=== PATIENT | female | born 2000 | race Caucasian/White ===

== ENCOUNTER 2023-06-23 13:30 | Inpatient (IN) ==
--- OUTSIDE RECORDS SUMMARY | 2023-06-23 13:37 | External Medical Summary | Summary of Care ---
Author Name Unknown Organization [facility] Address [address] [place] [address] Phone [phone] Care Team Providers Care Pastry Cook Name Role Phone Melba Cr MD Primary Care Provider Reason for Visit * Reason Onset Date Comments Anemia Follow-Up 06/19/2023 Encounter Details Date Type Department Care Team (Late st Contact Info) Description 06/19/2023 10:00 AM [facility] Pharm[facility] Pharmacy, [place] [address], [place] [id number] Clinic, [place] [address] [place] [address] Iron deficiency anemia, unspecified iron deficiency anemia type* Allergies Active Allergy Reactions Criticality Noted Date Comments Bee Venom High 01/20/2014 WASP and HONETS documented as of this encounter (statuses as of 06/19/2023) Medications Medication Sig Dispensed Refills Start Date End Date Status Albuterol Sulfate HFA 108 (90 Base) MCG/ACT Inhalation Aerosol SolutionIndications:a s needed Inhale 2 Puffs by mouth. 0 12/25/2019 Active EPINEPHrine 0.3 MG/0.3ML Injection Solution Auto-injector (Autoinjector) Inject 0.3 mg into a large muscle. 0 12/25/2019 Active 27-0.8 MG Oral Tablet Take 1 Tablet by mouth daily at noon. 0 Active Vitron-C 65-125 MG Oral Tablet (Iron-Vitamin C 65-125 mg per tab)Indications:Antep artum anemia complicating Take 1 Tablet by mouth in the morning and 1 Tablet before bedtime. 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 Bipolar disease during 12/06/2022 Maternal asthma complicating , normal first 11/08/2022 Mild intermittent asthma without complication Bipolar affective disorder, currently depressed, moderate 10/28/2021 Estimated Date of Delivery Comme nts Yes 06/30/2023 Based on Ultraso und documented as of this encounter (statuses as of 06/19/2023) Immunizations Name Administration Dates Next Due COVID-19 mRNA, LNP-s, No Pre serve, 2-Dose Series (Moderna) 02/03/2021,01/06/2021 DTaP Dipth/Tet/Acell Pertussis (Infanrix), Peds 02/22/2006,08/06/2002,05/15/2001,03/19,01/08/2001 HPV Vaccine, 9-Valent 05/11/2022,12/09/2021 Haemophilius B (HIB), unspecified 11/18/2001,,01/08/2001 Hepatitis A Vaccine 03/18/2009,12/11/2007 Hepatitis B Vaccine 11/18/2001,03/19/2001,2000 Hepatitis B, 20+ yrs 02/15/2023,01/11/2023 IPV - Polio Virus Vaccine (Inact) 2013,08/06/2002,05/15/2001,03/19,01/08/2001 MMR - Measles/Mumps/Rubella Vaccine 02/22/2006,0 08/06/2002 Meningococcal Polysaccharide Vaccine (Menommune) 10/16/2012 PPD 01/11/2023,01/04/2023 Pneumococcal Conjugate Vacci ne, 7 Valent 05/15/2001,03/19/2001,01/08/2001 SEASONAL INFLUENZA, PF, 6 M & Above, IM , (FLULAVAL or FLUZONE) 04/25/2023,06/14/2022,05/11/2022,06/16 Seasonal Influenza, Split, I IV3, With Preserve, Inj 04/21/2013 TDAP (age 10 and older)(Boostrix) 02/21/2023, Varicella Vaccine (Chicken Pox) 12/11/2007,08/06 documented as of this encounter Social History Tobacco Use Types Packs/Day Years Used Date Smoking Tobacco: Never Smokeless Tobacco: Never Alcohol Use Standard Drinks/Week Comments Never 0 (1 standard drink = 0.6 oz pur e alcohol) AUDIT-C Answer Date Recorded Q1: How often do you have a drink containing alc ohol? Never 09/30/2020 Q2: How many drinks containi ng alcohol do you have on a typical day when you are drinking? Not asked 09/30/2020 Q3: How often do you have six or more drinks on one occasion? Never 09/30/2020 Hunger Vital Sign Answer Date Recorded Within the past 12 months, y ou worried that your food would run out before you got the money to buy more. Never true 02/17/20 23 Within the past 12 months, t he food you bought just didn't last and you didn't have money to get more. Never true 02/16/2023 Wheeler Depression Scale Answer Date Recorded [place] Depression Scale Total 11 03/28/2023 The thought of harming myself has occurred to me . Never 03/28/2023 Estimated Date of Delivery Comme nts Yes 06/30/2023 Based on Ultraso und Sex and Gender Information Value Date Recorded Sex Assigned at Female 10/27/2022 7:27 PM EDT Gender Identity Female 10/27/2022 7:27 PM EDT Sexual Orientation Bisexual 10/27/2022 7: 27 PM EDT Job Start Date Occupation Industry Not on file Not on file Not on file documented as of this encounter Progress Notes * Taylor Rosario RP - 06/19/2023 7:58 AM EST Patient received first dose of Venofer 300 mg x 3 repletion series on 05/28 and appeared to have tolerated it without issue. Next scheduled: 06/04 (No Show) Scheduled to be completed: 06/11 (No Show) GA: 38w3d Estimated Date of Delivery: 06/30/23 Called patient to advise of Infusion Center at [facility] phone number and to call to reschedule final 2 doses. [phone]. No answer. Left message. Follow-up after completion of series to schedule repeat labs if appropriate prior to delivery. Anemia Clinic will continue to follow. Thank you for allowing us to participate in the care of thispatient. Thanks, Taylor Rosario [facility] Clinical Pharmacist documented in this encounter Miscellaneous Notes * Addendum Note - Taylor Rosario RPh - 06/19/2023 8:26 AM ESTAddended by: TAYLOR ROSARIO on: 06/19/2023 08:26 AM Modules accepted: Orders documented in this encounter Plan of Treatment Upcoming Encounters Date Type Department Care Team (Late st Contact Info) Description 06/20/2023 2:00 PM EST Office Visit Gynecology/Obstetrics [facility] [address] [place] [address] Phyllis Huggins CRNP [address] [address] 06/26/2023 10:00 AM EST Pharmacy Pharmacy, [place] [address] [place] [address] Clinic, Anemia [address] [place] [address] 06/27/2023 1:30 PM EST Office Visit Gynecology/Obstetrics [facility] [address] [address] Sally Alvares CRNP [address] [place] [address] Health Maintenance Due Date Last Done Comments Pneumococcal Vaccine: Pediatrics (0 to 5 Years) and At-Risk Patients (6 to 64 Years) (1 - PCV) 2006 Depression Screening 2012 *SPIROMETRY ONCE FOR ASTHMA-ADULT 06/22/2022 GARDASIL-HPV IMMUNIZATION SERIES (3 - 3-dose series) 08/03/2022 05/11/2022, 12/09/2021 COVID-19 Vaccine (3 - 2022- season) 2023 02/03/2021, 01/06/2021 Gonorrhea / Chlamydia Screen 11/09/2023 11/08/2022, 10/28/2021 Pap Smear 11/08/2025 11/08/2022 DTaP,Tdap,and Td Vaccines (8 - Td or Tdap) 02/21/2033 02/21/2023, 10/16/2012, 02/22/2006, Additional history exists MENINGOCOCCAL (MENACTRA/MENVEO) Aged Out 10/16/2012 No longer eligible based on patient's age to complete this topic Hepatitis B Completed 02/15/2023, 12/28, 11/18/2001, Additional history exists Influenza Vaccine (FLU shot) Completed , 06/14/2022, 05/11/2022, Additional history exists documented as of this encounter Medical Devices Not on filedocumented as of this encounter Visit Diagnoses Diagnosis Iron deficiency anemia, unspecified iron deficiency anemia type- Primary documented in this encounter Care Teams Pastry Cook Relationship Specialty Start Date End Date Melba Cr MD [address] [address] PCP - General Internal Medicine 12/09/21 documented as of this encounter
--- OUTSIDE RECORDS SUMMARY | 2023-06-23 13:37 | External Medical Summary | Summary of Care ---
Author Name Unknown Organization [facility] Address [address] [facility] [place] [address] Phone [phone] Care Team Providers Care Travel Journalist Name Role Phone Melba Cr MD Primary Care Provider Reason for Visit * Reason Comments Return Visit Encounter Details Date Type Department Care Team (Late st Contact Info) Description 06/20/2023 2:00 PM EST Office Visit Gynecology/Obstetric s [facility] [address] [place] [address] Phyllis Huggins CRNP [address] [place] [address] Encounter for supervision of normal first in third trimester*; Bipolar disease during , antepartum (HCC); Maternal asthma complicating ; History of tetanus, diphtheria, and acellular pertussis booster vaccination (Tdap); Antepartum anemia complicating Allergies Active Allergy Reactions Criticality Noted Date Comments Bee Venom High 01/20/2014 WASP and HONETS documented as of this encounter (statuses as of 06/20/2023) Medications Medication Sig Dispensed Refills Start Date [...] as of this encounter (statuses as of 06/20/2023) Active Problems Problem Noted Date Diagnosed Date Iron deficiency anemia 05/23/2023 Antepartum anemia complicating 023 History of tetanus, diphther ia, and acellular pertussis booster vaccination (Tdap) 03/08/2023 Overview: 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 Never true 02/16/2023 [place] Depression Scale Answer Date Recorded [place] Depression Scale Total 11 03/28/2023 The thought [...] on file documented as of this encounter Last Filed Vital Signs Vital Sign Reading Time Taken Comments Blood Pressure 120/78 06/20/2023 2:04 PM EST Pulse - - Temperature - - Respiratory Rate - - Oxygen Saturation - - Inhaled Oxygen Concentration - - Weight 94.6 kg (208 lb 9.6 oz) 06/20/2023 2:04 P M EST Height 157.5 cm (5' 2") 06/20/2023 2:04 PM EST Body Mass Index 38.15 06/20/2023 2:04 PM EST documented in this encounter Progress Notes * Phyllis Huggins CRNP - 06/20/2023 2:18 PM EST 38w4d No concerns. Feeling uncomfortable, but ok overall. Baby is active. No contractions, no bleeding or LOF. Discussed contraception, undecided at this point. Agreeable to IOL. KARLENE Navarro * Tiffany Templeton LPN - 06/20/2023 2:07 PM EST 38w4d Pt denies any concerns documented in this encounter Plan of Treatment Upcoming Encounters Date Type Department Care Team (Late st Contact Info) Description 06/26/2023 10:00 AM EST Pharmacy Pharmacy, [place] [address] [place] [address] Clinic, [place] [address] [place] [address] 06/27/2023 1:30 PM EST Office Visit Gynecology/Obstetrics [facility] [address] [place] [address] Sally Alvares CRNP [address] [address] Health Maintenance Due Date Last Done Comments Pneumococcal Vaccine: Pediatrics (0 to 5 Years) and At-Risk Patients (6 to 64 Years) (1 - PCV) 2006 Depression Screening 2012 *SPIROMETRY ONCE FOR ASTHMA-ADULT 06/22/2022 GARDASIL-HPV IMMUNIZATION SERIES (3 - 3-dose series) 08/03/2022 05/11/2022, 12/09/2021 COVID-19 Vaccine (3 - 2022-24 season) 2023 02/03/2021, 01/06/2021 Gonorrhea / Chlamydia [...] as of this encounter Visit Diagnoses Diagnosis Encounter for supervision of normal first in third trimester- Primary Supervision of normal first Bipolar disease during , antepartum (HCC) Maternal asthma complicating Other current maternal conditions classifiable elsewhere, complicating , childbirth, or the puerperium, unspecified as to episode of care History of tetanus, diphtheria, and acellular pertussis booster vaccination (Tdap) Antepartum anemia complicating Anemia, antepartum documented in this encounter Care Teams Travel Journalist Relationship Specialty Start Date End Date Melba Cr MD [address] [address] PCP - General Internal Medicine 12/09/21 documented as of this encounter
--- OUTSIDE RECORDS SUMMARY | 2023-06-23 13:37 | External Medical Summary | Summary of Care ---
Author Name Unknown Organization [facility] Address [address] [place] [address] Phone [phone] Care Team Providers Care Professor Of Communication Name Role Phone Melba Cr MD Primary Care Provider Reason for Visit * Reason Onset Date Comments Anemia Follow-Up 06/19/2023 Encounter Details Date Type Department Care Team (Late st Contact Info) Description 06/19/2023 10:00 AM [facility], [place] [address] [place], [place] [id number] Clinic, Anemia [address] [place] [address] Iron deficiency anemia, unspecified iron deficiency anemia [...] money to get more. Never true 02/16/2023 [place] Depression Scale Answer Date Recorded [place] Depression Scale Total 11 03/28/2023 The thought [...] patient to advise of Infusion Center at [facility] phone number and to call to reschedule final 2 doses. [phone]. No answer. Left message. Follow-up after completion of series to schedule repeat labs if appropriate prior to delivery. Anemia Clinic will continue to follow. Thank you for allowing us to participate in the care of thispatient. Thanks, Taylor Rosario [facility] Clinical Pharmacist documented in this encounter Miscellaneous Notes * Addendum Note - Taylor Rosario RPh - 06/19/2023 8:26 AM ESTAddended by: TAYLOR ROSARIO on: 06/19/2023 08:26 AM Modules accepted: Orders documented in this encounter Plan of Treatment Upcoming Encounters Date Type Department Care Team (Late st Contact Info) Description 06/20/2023 2:00 PM EST Office Visit Gynecology/Obstetrics [facility] [address] [place] [address] Phyllis Huggins CRNP [address] [address] 06/26/2023 10:00 AM EST Pharmacy Pharmacy, [place] [address] [place] [address] Clinic, [place] [address] [place] [address] 06/27/2023 1:30 PM EST Office Visit Gynecology/Obstetrics [facility] [address] [address] Sally Alvares CRNP [address] [place] [address] Health Maintenance Due Date Last Done Comments [...] Primary documented in this encounter Care Teams Professor Of Communication Relationship Specialty Start Date End Date Melba Cr MD [address] [address] PCP - General Internal Medicine 12/09/21 documented as of this encounter
--- OUTSIDE RECORDS SUMMARY | 2023-06-23 13:37 | External Medical Summary | Summary of Care ---
Author Name Unknown Organization [facility] Address [address] [facility] [place] [address] Phone [phone] Care Team Providers Care Ammonia Still Operator Name Role Phone Melba Cr MD Primary Care Provider Reason for Visit * Reason Comments Return Visit Encounter Details Date Type Department Care Team (Late st Contact Info) Description 06/20/2023 2:00 PM EST Office Visit Gynecology/Obstetric s [facility] [address] [place] [address] Phyllis Huggins CRNP [address] [place] [address] Encounter for supervision of normal first in [...] money to get more. Never true 02/16/2023 [place] Depression Scale Answer Date Recorded [place] Depression Scale Total 11 03/28/2023 The thought [...] Description 06/26/2023 10:00 AM EST Pharmacy Pharmacy, [place] [address] [place] [address] Clinic, [place] [address] [place] [address] 06/27/2023 1:30 PM EST Office Visit Gynecology/Obstetrics [facility] [address] [place] [address] Sally Alvares CRNP [address] [address] Health Maintenance Due Date Last Done Comments [...] antepartum documented in this encounter Care Teams Ammonia Still Operator Relationship Specialty Start Date End Date Melba Cr MD [address] [address] PCP - General Internal Medicine 12/09/21 documented as of this encounter
--- OUTSIDE RECORDS SUMMARY | 2023-06-23 13:37 | External Medical Summary | Summary of Care ---
Author Name Unknown Organization [facility] Address [address] [facility] [address] Phone [phone] Care Team Providers Care Facility Manager Name Role Phone Melba Cr MD Primary Care Provider Encounter Details Date Type Department Care Team (Late st Contact Info) Description 06/20/2023 [facility] [address] [place] [address] Phyllis Huggins CRNP [address] [place] [address] Allergies Active Allergy Reactions Criticality Noted Date [...] money to get more. Never true 02/16/2023 [place] Depression Scale Answer Date Recorded [place] Depression Scale Total 11 03/28/2023 The thought [...] on file documented as of this encounter Miscellaneous Notes * Telephone Encounter - Tiffany Templeton LPN - 06/20/2023 3:32 PM EST IOL scheduled at [facility] on 07/11, myg sent. documented in this encounter Plan of Treatment Upcoming Encounters Date Type Department Care Team (Late st Contact Info) Description 06/26/2023 10:00 AM EST Pharmacy Pharmacy, [place] [address] [place] [address] Clinic, [facility] [address] [place] [address] 06/27/2023 1:30 PM EST [facility] [address] [place] [address] Back[place], KARLENE Jain [address] [place] [address] Health Maintenance Due Date Last Done Comments [...] Not on filedocumented as of this encounter Care Teams Facility Manager Relationship Specialty Start Date End Date Melba Cr MD [address] [place] [address] PCP - General Internal Medicine 12/09/21 documented as of this encounter
--- OUTSIDE RECORDS SUMMARY | 2023-06-23 13:37 | External Medical Summary | Summary of Care ---
Author Name Unknown Organization [facility] Address [address] [facility] [address] Phone [phone] Care Team Providers Care Butt Presser Name Role Phone Melba Cr MD Primary Care Provider Reason for Visit * Reason Comments Return Visit Encounter Details Date Type Department Care Team (Late st Contact Info) Description 06/20/2023 2:00 PM EST Office Visit Gynecology/Obstetric s [facility] [address] [place] [address] Phyllis Huggins CRNP [address] [facility] [place] [address] Encounter for supervision of normal first in [...] money to get more. Never true 02/16/2023 [place] Depression Scale Answer Date Recorded [place] Depression Scale Total 11 03/28/2023 The thought [...] Description 06/26/2023 10:00 AM EST Pharmacy Pharmacy, [place] [address] [place] [address] Clinic, [place] [address] [place] [address] 06/27/2023 1:30 PM EST Office Visit Gynecology/Obstetrics [facility] [address] [place] [address] Sally Alvares CRNP [address] [address] Health Maintenance Due Date Last Done Comments [...] antepartum documented in this encounter Care Teams Butt Presser Relationship Specialty Start Date End Date Melba Cr MD [address] [address] PCP - General Internal Medicine 12/09/21 documented as of this encounter
--- OUTSIDE RECORDS SUMMARY | 2023-06-23 13:38 | External Medical Summary | Summary of Care ---
Author Name Unknown Organization [facility] Address [address] [facility] [place] [address] Phone [phone] Care Team Providers Care Binder Chainstitch Name Role Phone Melba Cr MD Primary Care Provider Reason for Visit * Reason Comments Return Visit Encounter Details Date Type Department Care Team (Late st Contact Info) Description 06/06/2023 3:00 PM EST Office Visit Gynecology/Obstetric s [facility] [address] [place] [address] Honorio Hsu MD [address] [place] [address] Encounter for supervision of normal first in third trimester*; Bipolar disease during in third trimester (HCC); Maternal asthma complicating ; History of tetanus, diphtheria, and acellular pertussis booster vaccination (Tdap); Antepartum anemia complicating Allergies Active Allergy Reactions Criticality Noted Date Comments Bee Venom High 01/20/2014 WASP and HONETS documented as of this encounter (statuses as of 06/06/2023) Medications Medication Sig Dispensed Refills Start Date End Date Status Albuterol Sulfate HFA 108 (90 Base) MCG/ACT Inhalation Aerosol SolutionIndications:as needed Inhale 2 Puffs by mouth. 0 12/25/2019 Active EPINEPHrine 0.3 MG/0.3ML Injection Solution Auto-injector (Autoinjector) Inject 0.3 mg into a large muscle. 0 12/25/2019 Active 27-0.8 MG Oral Tablet Take 1 Tablet by mouth daily at noon. 0 Active Vitron-C 65-125 MG Oral Tablet (Iron-Vitamin C 65-125 mg per tab)Indications:Antepa rtum anemia complicating Take 1 Tablet by mouth in the morning and 1 Tablet before bedtime. 60 Tablet 3 03/29/2023 Active documented as of this encounter (statuses as of 06/06/2023) Active Problems Problem Noted Date Diagnosed Date [...] as of this encounter (statuses as of 06/06/2023) Immunizations Name Administration Dates Next Due COVID-19 [...] money to get more. Never true 02/16/2023 [place] Depression Scale Answer Date Recorded [place] Depression Scale Total 11 03/28/2023 The thought [...] Sign Reading Time Taken Comments Blood Pressure 110/64 06/06/2023 3:01 PM EST Pulse - - Temperature - - Respiratory Rate - - Oxygen Saturation - - Inhaled Oxygen Concentration - - Weight 93.4 kg (206 lb) 06/06/2023 3:01 PM EST Height 157.5 cm (5' 2") 06/06/2023 3:01 PM EST Body Mass Index 37.68 06/06/2023 3:01 PM EST documented in this encounter Progress Notes * Honorio Hsu MD - 06/06/2023 3:05 PM EST Pt doing well No complaints Declined GBs today - wishes to do it next visit RTC 1 week * Laverne Cai LPN - 06/06/2023 3:01 PM EST 36w4d Refused gbs until next week Pt does not want a male physician for delivery I let pt and partner know that we have 2 male physicians and 2 femal physicians that deliver at [facility] so we cannot guarantee she will have a female doc to deliver. documented in this encounter Plan of Treatment Upcoming Encounters Date Type Department Care Team (Late st Contact Info) Description 06/11/2023 1:30 PM EST Hem/Onc Treatment Hematology/Oncology Treatment, [place] [address] [facility] [place] [address] [place], Chair [address] Hem On[address] [facility] [address] 06/12/2023 9:45 AM EST Pharmacy Pharmacy, [place] [address] [place] [address] Clinic, [facility] [address] [place] [address] 06/13/2023 1:30 PM EST Office Visit [facility]st[facility] [address] [place] [address] Sally Alvares CRNP [address] [place] [address] 06/20/2023 2:00 PM EST [facility] [address] [place] [address] Phyllis Huggins CRNP [address] [place] [address] 06/27/2023 1:30 PM EST Office Visit [facility]necology[facility]st[facility]s [facility] [address] [place] [address] Sally Alvares CRNP [address] [place] [address] Health Maintenance Due Date Last Done Comments Pneumococcal Vaccine: Pediatrics (0 to 5 Years) and At-Risk Patients (6 to 64 Years) (1 - PCV) 2006 Depression Screening 2012 *SPIROMETRY ONCE FOR ASTHMA-ADULT 06/22/2022 GARDASIL-HPV IMMUNIZATION SERIES (3 - 3-dose series) 08/03/2022 05/11/2022, 12/09/2021 COVID-19 Vaccine ( - 2022- season) 2023 02/03/2021, 01/06/2021 Gonorrhea [...] Supervision of normal first Bipolar disease during in third trimester (HCC) Maternal asthma complicating Other current maternal conditions classifiable elsewhere, complicating , childbirth, or the puerperium, unspecified as to episode of care History of tetanus, diphtheria, and acellular pertussis booster vaccination (Tdap) Antepartum anemia complicating Anemia, antepartum documented in this encounter Care Teams Binder Chainstitch Relationship Specialty Start Date End Date Melba Cr MD [address] [place] [address] PCP - General Internal Medicine 12/09/21 documented as of this encounter
--- OUTSIDE RECORDS SUMMARY | 2023-06-23 13:38 | External Medical Summary | Summary of Care ---
Author Name Unknown Organization [facility] Address [address] [place] [address] Phone [phone] Care Team Providers Care Oven Equipment Repairer Name Role Phone Melba Cr MD Primary Care Provider Reason for Referral * Evaluate & Treat - Unlimited Visits (Within 10 days (routine)) - Pending Review Specialty Diagnoses / Procedures Referred By Yordy diana Referred To Contact Pharmacist / Pharmacy Diagnoses ARIELLE (iron deficiency anemia) Phyllis Huggins CRNP [address] [place] [address] Referral ID Status Reason Start Date Expiration Date Visits Requested Visits Authorized [id number] Pending Review Specialty Services Required 3 [phone] Question Answer Referral Priority Within 10 days (routine) Where should this appointment be scheduled? [facility] Department: Specialist Specialty: committee member Reason for Referral: Anemia Comments Pharmacist Medication Therapy Management: Iron deficiency anemia Dean Del Angel RN Reason for Visit * Reason Onset Date Comments Blood Management Program 05/15/2023 Encounter Details Date Type Department Care Team (Late st Contact Info) Description 05/15/2023 Telephone Patient Blood Management, [place] [address] [place] [address] Phyllis Huggins CRNP [address] [place] [address] Blood Management Program Allergies Active Allergy Reactions Criticality Noted Date Comments Bee Venom High 01/20/2014 WASP and HONETS documented as of this encounter (statuses as of 05/25/2023) Medications Medication Sig Dispensed Refills Start Date [...] as of this encounter (statuses as of 05/25/2023) Active Problems Problem Noted Date Diagnosed Date [...] as of this encounter (statuses as of 05/25/2023) Immunizations Name Administration Dates Next Due COVID-19 [...] money to get more. Never true 02/16/2023 [place] Depression Scale Answer Date Recorded [place] Depression Scale Total 11 03/28/2023 The thought [...] encounter Miscellaneous Notes * Telephone Encounter - Debby Mtz OSA - 05/25/2023 8:35 AM EDT Called and spoke to patient and she is scheduled for venofer for 05/28/23. * Telephone Encounter - Linnea Kamara RN - 05/25/2023 7:40 AM EDT [place] is signed. Scheduling: please call patient to schedule 2 hour appt "venofer /" (Phyllis Huggins). Thanks! Patient will need venofer once a week x3. * Telephone Encounter - Samantha Garg LPN - 05/23/2023 3:58 PM EDT Order received for Venofer 300mg IV weekly x 3 doses [place] created and routed to anemic clinic for signature Prior auth is not needed, patient can be scheduled once plan is signed * Telephone Encounter - Dean Del Angel RN - 05/15/2023 1:02 PM EDT Recommend IV iron per OB MTM protocol. Infusion at [facility]. documented in this encounter Plan of Treatment Upcoming Encounters Date Type Department Care Team (Late st Contact Info) Description 05/28/2023 1:45 PM EDT Hem/Onc Treatment Hematology/Oncology Treatment, [address] [place] [address] Florecita, Chair 8 Hem Onc [address] [address] 05/29/2023 10:00 AM EDT Pharmacy Pharmacy, [place] [address] [place], [place] [id number] Clinic, Anemia [address] [place] [address] 05/30/2023 1:30 PM EDT Office Visit Gynecology/Obstetrics [facility] [address] [place] [address] Sally Alvares CRNP [address] [place] [address] 06/04/2023 1:45 PM EST Hem/Onc Treatment Hematology/Oncology Treatment, [address], [place] [address] Florecita, Chair 5 Hem Onc [address] [place] [address] 06/06/2023 3:00 PM EST Office Visit Gynecology/Obstetrics [facility] [address] [place] [address] Honorio Hsu MD [address] [place] [address] 06/11/2023 1:30 PM EST Hem/Onc Treatment Hematology/[address], [address] [address] Florecita, Chair 8 Hem Onc [address] [place] [address] 06/13/2023 1:30 PM EST Office Visit Gynecology/Obstetrics [facility] [address] [place] [address] Sally Alvares CRNP [address] [place] [address] 06/20/2023 2:00 PM EST Office Visit Gynecology/Obstetrics [facility] Luis Alfredo Enamoradogail Nasim [place] [address] Phyllis Huggins CRNP [address] [place] [address] 06/27/2023 1:30 PM EST Office Visit Gynecology/Obstetrics [facility] Luis Alfredo [place] [address] Sally Alvares CRNP [address] [place] [address] Scheduled Referrals Name Type Priority Associated Diagnoses Orde r Schedule PHARMACIST MEDS THERAPY MGMT REFERRAL OP Referral Within 10 days (routine) ARIELLE (iron deficiency anemia) Ordered: 05/15/2023 Health Maintenance Due Date Last Done Comments [...] as of this encounter Visit Diagnoses Diagnosis ARIELLE (iron deficiency anemia)- Primary Iron deficiency anemia, unspecified documented in this encounter Care Teams Oven Equipment Repairer Relationship Specialty Start Date End Date Melba rC MD [address] [place] [address] PCP - General Internal Medicine 12/09/21 documented as of this encounter
--- OUTSIDE RECORDS SUMMARY | 2023-06-23 13:38 | External Medical Summary | Summary of Care ---
Author Name Unknown Organization [facility] Address [address] [place] [address] Phone [phone] Care Team Providers Care Physiology Teacher Name Role Phone Melba Cr MD Primary Care Provider Reason for Visit * Reason Onset Date Comments Anemia Follow-Up 05/29/2023 Encounter Details Date Type Department Care Team (Late st Contact Info) Description 05/29/2023 10:00 AM EDT Pharmacy Pharmacy, [place] [address], [place] [id number] Clinic, Anemia [address] [place], [place] [phone] Iron deficiency anemia, unspecified iron deficiency anemia type* Allergies Active Allergy Reactions Criticality Noted Date Comments Bee Venom High 01/20/2014 WASP and HONETS documented as of this encounter (statuses as of 05/29/2023) Medications Medication Sig Dispensed Refills Start Date [...] as of this encounter (statuses as of 05/29/2023) Active Problems Problem Noted Date Diagnosed Date Iron deficiency anemia 05/23/2023 Antepartum anemia complicating 023 History of tetanus, diphther ia, and acellular pertussis booster vaccination (Tdap) 03/08/2023 Overview: Received around 22 weeks for [employer] school Bipolar disease during 12/06/2022 Maternal asthma complicating , normal first 11/08/2022 Mild intermittent asthma without complication Bipolar affective disorder, currently depressed, moderate 10/28/2021 Estimated Date of Delivery Comme nts Yes 06/30/2023 Based on Ultraso und documented as of this encounter (statuses as of 05/29/2023) Immunizations Name Administration Dates Next Due COVID-19 [...] money to get more. Never true 02/16/2023 [place] Depression Scale Answer Date Recorded [place] Depression Scale Total 11 03/28/2023 The thought [...] as of this encounter Progress Notes * Ania Singh, [facility] - 05/29/2023 8:15 AM EDT Patient received first dose of Venofer 300 mg x 3 repletion series on 05/28 and appeared to have tolerated it without issue. Next scheduled: 06/04 Scheduled to be completed: 06/11 GA: [id number] Estimated Date of Delivery: 06/30/23 Follow-up after completion of series to ensure all doses are administered prior to delivery. Anemia Clinic will continue to follow. Thank you for allowing us to participate in the care of thispatient. Thanks, Ania Singh [facility] Clinical Pharmacist 05/29/2023 8:15 AM documented in this encounter Plan of Treatment Upcoming Encounters Date Type Department Care Team (Late st Contact Info) Description 05/30/2023 1:30 PM EDT Office Visit Gynecology/Obstetrics [facility] [address] [place] [address] Sally Alvares CRNP [address] [place] [address] 06/04/2023 1:45 PM EST Hem/Onc Treatment Hematology/Oncology Treatment, [address] [address] Florecita, Chair 3 Hem Onc [address] [place] [address] 06/06/2023 3:00 PM EST Office Visit Gynecology/Obstetrics [facility] [address] [place] [address] Honorio Hsu MD [address] [place] [address] 06/11/2023 1:30 PM EST Hem/Onc Treatment Hematology/Oncology Treatment, [address] [address] Florecita, Chair 8 Hem Onc [place] [address] [facility] [place] [address] 06/12/2023 9:45 AM EST Pharmacy Pharmacy, [place] [address] [place] [address] Clinic, [place] [address] [place] [address] 06/13/2023 1:30 PM EST Office Visit Gynecology/Obstetrics [facility] [address] [place] [address] Sally Alvares CRNP [address] [place] [address] 06/20/2023 2:00 PM EST Office Visit Gynecology/Obstetrics [facility] [address] [place] [address] Phyllis Huggins CRNP [address] [place] [address] 06/27/2023 1:30 PM EST Office Visit Gynecology/Obstetrics [facility] [address] [place] [address] Sally Alvares CRNP [address] [place] [address] Health Maintenance Due Date Last Done Comments [...] Primary documented in this encounter Care Teams Physiology Teacher Relationship Specialty Start Date End Date Melba Cr MD [address] [place] [address] PCP - General Internal Medicine 12/09/21 documented as of this encounter
--- OUTSIDE RECORDS SUMMARY | 2023-06-23 13:38 | External Medical Summary | Summary of Care ---
Author Name Unknown Organization [facility] Address [address] [facility] [address] Phone [phone] Care Team Providers Care Occupational Therapy Professor Name Role Phone Melba Cr MD Primary Care Provider Encounter Details Date Type Department Care Team Description 05/14/2023 Telephone Gynecology/Obstetrics [address] [place] [address] Phyllis Huggins CRNP [address] [place] [address] Allergies Active Allergy Reactions Severity Noted Date Comments Bee Venom High 01/20/2014 WASP and HONETS documented as of this encounter (statuses as of 05/15/2023) Medications Medication Sig Dispensed Refills Start Date [...] as of this encounter (statuses as of 05/15/2023) Active Problems Problem Noted Date Antepartum anemia complicating 03/29/2023 History of tetanus, diphther ia, and acellular pertussis booster vaccination (Tdap) 03/08/2023 Overview: 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 Never 09/30/2020 How many drinks containing a lcohol do you have on a typical day when you are drinking? Not asked 09/30/2020 How often do you have six or more drinks on one occasion? Never 09/30/2020 Food Insecurity Answer Date Recorded Within the past 12 months, y ou worried that your food would run out before you got money to buy more. Never true 02/16/2023 Within the past 12 months, t he food you bought just didn't last and you didn't have money to get more. Never true 02/16/2023 Estimated Date of Delivery Comme nts Yes 06/30/2023 Based on Ultraso und Sex Assigned at Date Recorded Female 10/27/2022 7:27 PM E DT Job Start Date Occupation Industry Not on file Not on file Not on file documented as of this encounter Miscellaneous Notes * Telephone Encounter - KARLENE Navarro - 05/15/2023 9:50 AM EDT My recommendation would be infusions if she is agreeable, now that she is already 33 weeks . Please confirm that she is agreeable and I'll place the referral. * Telephone Encounter - Genia Sykes RN - 05/14/2023 3:41 PM EDT Patient called in. Made aware of results. Patient has been taking an over the counter iron supplement once a day. She states health education coordinator that qian never received her prescription for the Iron (advisedthat it was sent back in February and confirmed it was received) so she has been taking OTC iron supplement. Please advise if you would like to resend vitron C to [facility] or if patient needs to move forward with IV infusions at this time. Patient prefers to avoid infusions but states she is agreeableto the referral if that is what she needs to do at this point. * Telephone Encounter - Genia Sykes RN - 05/14/2023 3:32 PM EDT Attempted to call patient. No answer. LVM to return call. * Telephone Encounter - KARLENE Navarro - 05/14/2023 3:18 PM EDT Pt had a pretty significant drop in her hemoglobin, and her iron level is low. Is she actually taking the Vitron C BID? If so, this is surprising. At this point, she is going to need additional labs most likely and start IV iron transfusions, as her body is not responding to the oral iron. If agreeable, route back and I can place orders. documented in this encounter Plan of Treatment Upcoming Encounters Date Type Specialty Care Team Description 05/23/2023 Office Visit Gynecology Obstetrics Sally Alvares CRNP [address] [place] [address] 05/30/2023 Office Visit Gynecology Obstetrics Sally Alvares CRNP [address] [place] [address] 06/06/2023 Office Visit Gynecology Obstetrics Honorio Hsu MD [address] [place] [address] 06/13/2023 Office Visit Gynecology Obstetrics BackerSally CRNP [address] [place] [address] 06/20/2023 Office Visit Gynecology Obstetrics McHailPhyllis CRNP [address] [place] [address] 06/27/2023 Office Visit Gynecology Obstetrics AlexandreerSally CRNP [address] [place] [address] Health Maintenance Due Date Last Done Comments Pneumococcal Vaccine: Pediatrics (0 to 5 Years) and At-Risk Patients (6 to 64 Years) (1 - PCV) 2006 Depression Screening 2012 *SPIROMETRY ONCE FOR ASTHMA-ADULT 06/22/2022 GARDASIL-HPV IMMUNIZATION SERIES (3 - 3-dose series) 09/11/2022 05/11/2022, 12/09/2021 COVID-19 Vaccine (3 - 2022- [...] filedocumented as of this encounter Care Teams Occupational Therapy Professor Relationship Specialty Start Date End Date Melba Cr MD [address] [place] [address] PCP - General Internal Medicine 12/09/21 documented as of this encounter
--- OUTSIDE RECORDS SUMMARY | 2023-06-23 13:38 | External Medical Summary | Summary of Care ---
Author Name Unknown Organization [facility] Address [address] [facility] [address] Phone [phone] Care Team Providers Care Retail Service Technician Name Role Phone Melba Cr MD Primary Care Provider Encounter Details Date Type Department Care Team Description 05/14/2023 Telephone Gynecology/Obstetrics [address] [place] [address] Phyllis Huggins CRNP [address] [place] [address] Allergies Active Allergy Reactions Severity Noted Date [...] encounter Miscellaneous Notes * Telephone Encounter - Genia Sykes RN - 05/15/2023 10:27 AM EDT Attempted to call patient. No answer. [...] iron supplement once a day. 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 Please advise if you would like to resend vitron C to [facility] or if patient needs to move forward [...] Team Description 05/23/2023 Office Visit Gynecology Obstetrics Backer, KARLENE Jain [address] [facility] [place] [address] 05/30/2023 Office Visit Gynecology Obstetrics BackSally yang CRNP [address] [place] [address] 06/06/2023 Office Visit Gynecology Obstetrics Honorio Hsu MD [address] [place] [address] 06/13/2023 Office Visit Gynecology Obstetrics Sally Alvares CRNP [address] [place] [address] 06/20/2023 Office Visit Gynecology Obstetrics McHailPhyllis CRNP [address] [place] [address] 06/27/2023 Office Visit Gynecology Obstetrics Sally Alvares CRNP [address] [place] [address] Health Maintenance Due Date Last Done Comments Pneumococcal Vaccine: Pediatrics (0 to 5 Years) and At-Risk Patients (6 to 64 Years) (1 - PCV) 2006 Depression Screening 2012 *SPIROMETRY ONCE FOR ASTHMA-ADULT 06/22/2022 GARDASIL-HPV IMMUNIZATION SERIES (3 - 3-dose series) 09/11/2022 05/11/2022, 12/09/2021 COVID-19 Vaccine (3 - 2022-24 [...] filedocumented as of this encounter Care Teams Retail Service Technician Relationship Specialty Start Date End Date Melba Cr MD [address] [place] [address] PCP - General Internal Medicine 12/09/21 documented as of this encounter
--- OUTSIDE RECORDS SUMMARY | 2023-06-23 13:38 | External Medical Summary | Summary of Care ---
Author Name Unknown Organization [facility] Address [address] [place] [address] Phone [phone] Care Team Providers Care Forest Law And Policy Professor Name Role Phone Melba Cr MD Primary Care Provider Reason for Visit * Reason Onset Date Comments Anemia Follow-Up 06/12/2023 Encounter Details Date Type Department Care Team (Late st Contact Info) Description 06/12/2023 10:00 AM [facility] Pharmacy Pharmacy, [place] [address] [place], [place] [phone] Clinic, Anemia [address] [place] [address] Iron deficiency anemia, unspecified iron deficiency anemia type* Allergies Active Allergy Reactions Criticality Noted Date Comments Bee Venom High 01/20/2014 WASP and HONETS documented as of this encounter (statuses as of 06/12/2023) Medications Medication Sig Dispensed Refills Start Date [...] as of this encounter (statuses as of 06/12/2023) Active Problems Problem Noted Date Diagnosed Date Iron deficiency anemia 05/23/2023 Antepartum anemia complicating 023 History of tetanus, diphther ia, and acellular pertussis booster vaccination (Tdap) 03/08/2023 Overview: Received around 22 weeks for [employer] school Bipolar disease during 12/06/2022 Maternal asthma complicating , normal first 11/08/2022 Mild intermittent asthma without complication Bipolar affective disorder, currently depressed, moderate 10/28/2021 Estimated Date of Delivery Comme nts Yes 06/30/2023 Based on Ultraso und documented as of this encounter (statuses as of 06/12/2023) Immunizations Name Administration Dates Next Due COVID-19 [...] money to get more. Never true 02/16/2023 [place] Depression Scale Answer Date Recorded [place] Depression Scale Total 11 03/28/2023 The thought [...] this encounter Progress Notes * Ania Singh, [facility] - 06/12/2023 8:05 AM EST Patient received first dose of Venofer 300 mg x 3 repletion series on 05/28 and appeared to have tolerated it without issue. Next scheduled: 06/04 (No Show) Scheduled to be completed: 06/11 (No Show) GA: [id number] Estimated Date of Delivery: 06/30/23 Called patient to advise of Infusion Center at [facility] phone number and to call to reschedule final 2 doses. [phone]. LMOVM. Follow-up after completion of series to schedule repeat labs if appropriate prior to delivery. Anemia Clinic will continue to follow. Thank you for allowing us to participate in the care of thispatient. Thanks, Ania Singh [facility] Clinical Pharmacist 06/12/2023 8:06 AM documented in this encounter Plan of Treatment Upcoming Encounters Date Type Department Care Team (Late st Contact Info) Description 06/13/2023 1:30 PM EST Office Visit Gynecology/Obstetrics [facility] [address] [place] [address] Sally Alvares CRNP [address] [place] [address] 06/19/2023 10:00 AM EST Pharmacy Pharmacy, [place] [address] [place] [address] Clinic, Anemia [address] [place] [address] 06/20/2023 2:00 PM EST Office Visit Gynecology/Obstetrics [facility] [address] [place] [address] Phyllis Huggins CRNP [address] [place] [address] 06/27/2023 1:30 PM EST [facility] [address] [place] [address] Sally Alvares CRNP [address] [place] [address] Health Maintenance Due Date Last Done Comments [...] Primary documented in this encounter Care Teams Forest Law And Policy Professor Relationship Specialty Start Date End Date Melba Cr MD [address] [place] [address] PCP - General Internal Medicine 12/09/21 documented as of this encounter
--- OUTSIDE RECORDS SUMMARY | 2023-06-23 13:38 | External Medical Summary | Summary of Care ---
Author Name Unknown Organization [facility] Address [address] [place] [address] Phone [phone] Care Team Providers Care Sample Display Preparer Name Role Phone Melba Cr MD Primary Care Provider Reason for Visit * Reason Onset Date Comments Anemia Follow-Up 05/23/2023 * Evaluate & Treat - Unlimited Visits (Within 10 days (routine)) - Pending Review Specialty Diagnoses / Procedures Referred By Contac t Referred To Contact Pharmacist / Pharmacy Diagnoses ARIELLE (iron deficiency anemia) Phyllis Huggins CRNP [address] [place] [address] Referral ID Status Reason Start Date Expiration Date Visits Requested Visits Authorized [id number] Pending Review Specialty Services Required 3 [phone] 99 Encounter Details Date Type Department Care Team (Late st Contact Info) Description 05/23/2023 4:00 PM EDT Pharmacy Pharmacy, [place] [address] [place] [address] Clinic, Anemia [address] [place] [address] Iron deficiency anemia, unspecified iron deficiency anemia type* Allergies Active Allergy Reactions Criticality Noted Date Comments Bee Venom High 01/20/2014 WASP and HONETS documented as of this encounter (statuses as of 05/23/2023) Medications Medication Sig Dispensed Refills Start Date [...] as of this encounter (statuses as of 05/23/2023) Active Problems Problem Noted Date Diagnosed Date [...] as of this encounter (statuses as of 05/23/2023) Immunizations Name Administration Dates Next Due COVID-19 [...] money to get more. Never true 02/16/2023 [place] Depression Scale Answer Date Recorded [place] Depression Scale Total 11 03/28/2023 The thought [...] of this encounter Progress Notes * Ania Singh RPh - 05/23/2023 8:41 AM EDT Patient referred by KARLENE Paul for evaluation of anemia by the Anemia Clinic. Called patient to introduce role/clinic and to review labs from 05/11. Hgb: 10.5 g/dL TSAT: 5 % Ferritin: 8 ng/mL GA: 34w4d Estimated Date of Delivery: 06/30/23 Hgb is below target range for the third trimester. Iron studies below target range. Patient reports feeling not bad and otherwise denies signs/symptoms of anemia. Patient is taking Vitron C twice daily and appears to be tolerating it well. Patient qualifies for IV iron repletion. Plan: Venofer 300 mg IV weekly x 3 doses at [facility]. Orders placed and routed to appropriate parties. Patient agreeable to intervention. Follow-up labs (CBCD, ferritin, iron screen, retic panel, B12, and FA) to be scheduled 4-6 weeks after iron repletion completed if appropriate prior to delivery. Anemia Clinic will continue to follow. Thank you for allowing us to participate in the care of thispatient. Thanks, Ania Singh [facility] Clinical Pharmacist 05/23/2023 8:41 AM documented in this encounter Plan of Treatment Upcoming Encounters Date Type Department Care Team (Late st Contact Info) Description 05/23/2023 1:30 PM EDT Office Visit Gynecology/Obstetrics [facility] [address] [place] [address] Back[place], KARLENE Jain [address] [address] 05/29/2023 10:15 AM EDT Pharmacy Pharmacy, [place] [address] [place] [address] Clinic, [facility] [address] [facility] [place] [address] 05/30/2023 1:30 PM EDT Office Visit Gynecology/Obstetrics [facility] [address] [place] [address] Sally Alvares CRNP [address] [place] [address] 06/06/2023 3:00 PM EST Office Visit Gynecology/Obstetrics [facility] [address] [place] [address] Honorio Hsu MD [address] [place] [address] 06/13/2023 1:30 PM EST Office Visit Gynecology/Obstetrics [facility] [address] [place] [address] Sally Alvares CRNP [address] [place] [address] 06/20/2023 2:00 PM EST Office Visit Gynecology/Obstetrics [facility] [address] [place] [address] Phyllis Huggins CRNP [address] [place] [address] 06/27/2023 1:30 PM EST Office Visit Gynecology/Obstetrics [facility] [address] [place] [address] Sally Alvares CRNP [address] [place] [address] Scheduled Referrals Name Type Priority Associated Diagnoses [...] Primary documented in this encounter Care Teams Sample Display Preparer Relationship Specialty Start Date End Date Melba Cr MD [address] [place] [address] PCP - General Internal Medicine 12/09/21 documented as of this encounter
--- OUTSIDE RECORDS SUMMARY | 2023-06-23 13:38 | External Medical Summary | Summary of Care ---
Author Name Unknown Organization [facility] Address [address] [facility] [address] Phone [phone] Care Team Providers Care Computer Systems Software Architect Name Role Phone Melba Cr MD Primary Care Provider Reason for Visit * Reason Comments Return Visit Encounter Details Date Type Department Care Team (Late st Contact Info) Description 05/30/2023 1:30 PM EDT Office Visit Gynecology/Obstetric s [facility] [address] [place] [address] BackerSally CRNP [address] [place] [address] Encounter for supervision of normal first in third trimester*; Bipolar disease during in third trimester (HCC); Maternal asthma complicating ; History of tetanus, diphtheria, and acellular pertussis booster vaccination (Tdap); Antepartum anemia complicating Allergies Active Allergy Reactions Criticality Noted Date Comments Bee Venom High 01/20/2014 WASP and HONETS documented as of this encounter (statuses as of 05/30/2023) Medications Medication Sig Dispensed Refills Start Date [...] as of this encounter (statuses as of 05/30/2023) Active Problems Problem Noted Date Diagnosed Date [...] as of this encounter (statuses as of 05/30/2023) Immunizations Name Administration Dates Next Due COVID-19 [...] money to get more. Never true 02/16/2023 [place] Depression Scale Answer Date Recorded [place] Depression Scale Total 11 03/28/2023 The thought [...] Sign Reading Time Taken Comments Blood Pressure 112/64 05/30/2023 1:31 PM EDT Pulse - - Temperature - - Respiratory Rate - - Oxygen Saturation - - Inhaled Oxygen Concentration - - Weight 91.6 kg (202 lb) 05/30/2023 1:31 PM EDT Height 162.6 cm (5' 4") 05/30/2023 1:31 PM EDT Body Mass Index 34.67 05/30/2023 1:31 PM EDT documented in this encounter Progress Notes * Laverne Cai LPN - 05/30/2023 1:32 PM EDT 35w4d * Sally Alvares CRNP - 05/30/2023 1:30 PM EDT 35w4d Doing well, good movement. No regular ctx, leaking/bleeding. Reviewed labor signs and instructions provided. Receiving IV iron for anemia. She is questioning baby's size - her dad and FOB were 10 lbs. By Jonah's, suspect EFW 6-6.5 lbs and vertex. Normal fundal height. Return in 1 week; discussed upcoming GBS testing. KARLENE Travis documented in this encounter Plan of Treatment Upcoming Encounters Date Type Department Care Team (Late st Contact Info) Description 06/04/2023 1:45 PM EST Hem/Onc Treatment [facility]ematology[facility] [place] [facility] [address] [place], Chair 11 Hem Onc [facility] [address] 06/06/2023 3:00 PM EST Office Visit Gynecology/Obstetrics [address] [place] [address] Honorio Hsu MD [address] [place] [address] 06/11/2023 1:30 PM EST Hem/Onc Treatment Hematology/Oncology Treatment, [place] [address] [place] [address] Florecita, Chair 8 Hem Onc [facility] [address] [place] [address] 06/12/2023 9:45 AM EST Pharmacy Pharmacy, [place] [address] [place], [place] [id number] Clinic, [facility] [address] [place] [address] 06/13/2023 1:30 PM EST Office Visit Gynecology/Obstetrics [facility] [address] [place] [address] Sally Alvares CRNP [address] [place] [address] 06/20/2023 2:00 PM EST Office Visit Gynecology/Obstetrics [facility] [address] [place] [address] Phyllis Huggins CRNP [address] [place] [address] 06/27/2023 1:30 PM EST Office Visit Gynecology/Obstetrics [facility] [address] [place] [address] Sally Alvares CRNP [address] [place] [address] Health Maintenance Due Date Last Done Comments [...] antepartum documented in this encounter Care Teams Computer Systems Software Architect Relationship Specialty Start Date End Date Melba Cr MD [address] [place] [address] PCP - General Internal Medicine 12/09/21 documented as of this encounter
--- OUTSIDE RECORDS SUMMARY | 2023-06-23 13:38 | External Medical Summary | Summary of Care ---
Author Name Unknown Organization [facility] Address [address] [facility] [address] Phone [phone] Care Team Providers Care Stores Naval Name Role Phone Melba Cr MD Primary Care Provider Encounter Details Date Type Department Care Team (Late st Contact Info) Description 05/23/2023 Orders Only Gynecology/Obstetrics [facility] [address] [place] [address] Phyllis Huggins CRNP [address] [place] [address] Iron deficiency anemia, unspecified iron deficiency anemia [...] money to get more. Never true 02/16/2023 [place] Depression Scale Answer Date Recorded [place] Depression Scale Total 11 03/28/2023 The thought [...] on file documented as of this encounter Plan of Treatment Upcoming Encounters Date Type Department Care Team (Late st Contact Info) Description 05/23/2023 1:30 PM EDT Office Visit Gynecology/Obstetric s [facility] [address] [place] [address] Sally Alvares CRNP [address] [place] [address] 05/23/2023 4:00 PM EDT Pharmacy Pharmacy, [address] [address] Clinic, Anemia [address] [place] [id number] Iron deficiency anemia, unspecified iron deficiency anemia type* 05/29/2023 10:15 AM EDT Pharmacy Pharmacy, [address] [address] Clinic, An[place] [address] [place] [address] 05/30/2023 1:30 PM EDT Office Visit Gynecology/Obstetric s [facility] [address] [place] [address] BackSally yang CRNP [address] [place] [address] 06/06/2023 3:00 PM EST Office Visit Gynecology/Obstetric s [facility] [address] [place] [address] Honorio Hsu MD [address] [place] [address] 06/13/2023 1:30 PM EST Office Visit Gynecology/Obstetric s [facility] [address] [place] [address] Sally Alvares CRNP [address] [place] [address] 06/20/2023 2:00 PM EST Office Visit Gynecology/Obstetric s [facility] [address] [place] [address] Phyllis Huggins CRNP [address] [place] [address] 06/27/2023 1:30 PM EST Office Visit Gynecology/Obstetric s [facility] [address] [place] [address] Sally Alvares CRNP [address] [place] [address] Health Maintenance Due Date Last Done Comments [...] anemia, unspecified iron deficiency anemia type- Primary Iron deficiency anemia, unspecified iron deficiency anemia type- Primary documented in this encounter Care Teams Stores Naval Relationship Specialty Start Date End Date Melba Cr MD [address] [place] [address] PCP - General Internal Medicine 12/09/21 documented as of this encounter
--- OUTSIDE RECORDS SUMMARY | 2023-06-23 13:38 | External Medical Summary | Summary of Care ---
Author Name Unknown Organization [facility] Address [address] [place] [address] Phone [phone] Care Team Providers Care Fast Food Assistant Restaurant Manager Name Role Phone Melba Cr MD Primary Care Provider Reason for Referral * Evaluate & Treat - Unlimited Visits (Within 10 days (routine)) - Pending Review Specialty Diagnoses / Procedures Referred By Yordy diana Referred To Contact Pharmacist / Pharmacy Diagnoses ARIELLE (iron deficiency anemia) Phyllis Huggins CRNP [address] [place] [address] Referral ID Status Reason Start Date Expiration Date Visits Requested Visits Authorized [id number] Pending Review Specialty Services Required 3 [phone] Question Answer Referral Priority Within 10 days (routine) Where should this appointment be scheduled? 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 Reason for Referral: Anemia Comments Pharmacist Medication Therapy Management: Iron deficiency anemia Dean Del Angel RN Reason for Visit * Reason Onset Date Comments Blood Management Program 05/15/2023 Encounter Details Date Type Department Care Team (Late st Contact Info) Description 05/15/2023 Telephone Patient Blood Management, [place] [address] [place] [address] Phyllis Huggins CRNP [address] [place] [address] Blood Management Program Allergies Active Allergy Reactions Criticality Noted Date Comments Bee Venom High 01/20/2014 WASP and HONETS documented as of this encounter (statuses as of 05/24/2023) Medications Medication Sig Dispensed Refills Start Date [...] as of this encounter (statuses as of 05/24/2023) Active Problems Problem Noted Date Diagnosed Date [...] as of this encounter (statuses as of 05/24/2023) Immunizations Name Administration Dates Next Due COVID-19 [...] money to get more. Never true 02/16/2023 [place] Depression Scale Answer Date Recorded [place] Depression Scale Total 11 03/28/2023 The thought [...] encounter Miscellaneous Notes * Telephone Encounter - Samantha Garg LPN - 05/23/2023 3:58 PM EDT Order received for Venofer 300mg IV weekly x 3 doses Orange created and routed to anemic clinic for signature Prior auth is not needed, patient can be scheduled once plan is signed * Telephone Encounter - Dean Del Angel RN - 05/15/2023 1:02 PM EDT Recommend IV iron per OB MTM protocol. Infusion at [facility]. documented in this encounter Plan of Treatment Upcoming Encounters Date Type Department Care Team (Late st Contact Info) Description 05/29/2023 10:00 AM EDT Pharmacy Pharmacy, [place] [address] [place] [address] Clinic, Anemia [address] [facility] [place] [address] 05/30/2023 1:30 PM EDT Office Visit Gynecology/Obstetrics [facility] [address] [place] [address] Sally Alvares CRNP [address] [place] [address] 06/06/2023 3:00 PM EST Office Visit Gynecology/Obstetrics [facility] [address] [place] [address] Honorio Hsu MD [address] [place] [address] 06/13/2023 1:30 PM EST Office Visit Gynecology/Obstetrics [facility] [address] [place] [address] Sally Alvares CRNP [address] [place] [address] 06/20/2023 2:00 PM EST Office Visit Gynecology/Obstetrics [facility] [address] [place] [address] Phyllis Huggins CRNP [address] [place] [address] 06/27/2023 1:30 PM EST Office Visit Gynecology/Obstetrics [facility] [address] [place] [address] Sally Alvares CRNP [address] [place] [address] Scheduled Referrals Name Type Priority Associated Diagnoses [...] unspecified documented in this encounter Care Teams Fast Food Assistant Restaurant Manager Relationship Specialty Start Date End Date Melba Cr MD [address] [place] [address] PCP - General Internal Medicine 12/09/21 documented as of this encounter
--- OUTSIDE RECORDS SUMMARY | 2023-06-23 13:38 | External Medical Summary | Summary of Care ---
Author Name Unknown Organization [facility] Address [address] [place] [address] Phone [phone] Care Team Providers Care Tobacco Sprayer Name Role Phone Melba Cr MD Primary Care Provider Reason for Visit * Reason Comments Blood Management Program Encounter Details Date Type Department Care Team Description 05/15/2023 Documentation Patient Blood Management, [place] [address] [place] [address] Dean Del Angel, RN Allergies Active Allergy Reactions Severity Noted Date [...] as of this encounter Progress Notes * Dean Del Angel RN - 05/15/2023 1:01 PM EDT REFERRAL - Patient Blood Management Name: Carlos Dawn REQUESTING SERVICE: [facility] OB REASON FOR REFERRAL: new evaluation outpatient, anemia in [facility]: 06/30/23 Anemia Evaluation: Latest Reference Range & Units 05/11/23 15:13 WBC 4.00 - 10.80 K/uL 10.77 HGB 12.0 - 15.3 g/dL 10.5 (L) HCT 36.0 - 45.2 % 35.1 (L) MCV 81.5 - 97.5 fL 87.5 PLT 140 - 400 K/uL 274 Iron 33 - 151 ug/dL 29 (L) Iron Binding Capacity 250 - 425 ug/dL 534 (H) Transferrin Saturation Percent 15 - 55 % 5 (L) Ferritin 13 - 150 ng/mL 8 (L) Immature Reticuloctye Fraction 2.5 - 20.6 % 31.0 (H) Reticulocyte Hemoglobin 29.7 - 37.4 pg 25.8 (L) (L): Data is abnormally low (H): Data is abnormally high Current Patient Medications: Medications that may impair hemostasis: none Medications that may impair iron absorption: none Patient Refused Blood Transfusion? (e.g. Latter day): no Possible Contributing Factors: iron deficiency Treatment Recommendations: IV iron per OB MTM protocol. Per chart review, patient agreeable, OB MTM submitted. Thank you for allowing Blood Management to participate in the care of this patient. documented in this encounter Plan of Treatment Upcoming Encounters Date Type Specialty Care Team Description 05/23/2023 Office Visit Gynecology Obstetrics Sally Alvares CRNP [address] [place] [address] 05/30/2023 Office Visit Gynecology Sally Roblero CRNP [address] [place] [address] 06/06/2023 Office Visit Gynecology Obstetrics Honorio Hsu MD [address] [place] [address] 06/13/2023 Office Visit Gynecology Obstetrics Sally Alvares CRNP [address] [place] [address] 06/20/2023 Office Visit Gynecology Obstetrics Phyllis Huggins CRNP [address] [place] [address] 06/27/2023 Office Visit Gynecology Obstetrics Sally Alvares CRNP [address] [place] [address] Health Maintenance Due Date Last Done Comments [...] filedocumented as of this encounter Care Teams Tobacco Sprayer Relationship Specialty Start Date End Date Melba Cr MD [address] [place] [address] PCP - General Internal Medicine 12/09/21 documented as of this encounter
--- OUTSIDE RECORDS SUMMARY | 2023-06-23 13:38 | External Medical Summary | Summary of Care ---
Author Name Unknown Organization [facility] Address [address] [facility] [address] Phone [phone] Care Team Providers Care Harbour Master Name Role Phone Melba Cr MD Primary Care Provider Reason for Referral * (Within 10 days (routine)) Specialty Diagnoses / Procedures Referred By Yordy diana Referred To Contact Toi Rasmussen CRNP [address] [place] [address] Referral ID Status Reason Start Date Expiration Date Visits Re quested Visits Authorized Question Answer Referral Priority Within 10 days (routine) Where should this appointment be scheduled? [facility] Reason for Visit * Reason Onset Date Comments Abnormal Test Results 05/14/2023 anemia Encounter Details Date Type Department Care Team Description 05/14/2023 Telephone Gynecology/Obstetrics [address] [place] [address] Toi Rasmussen CRNP [address] [place] [address] Abnormal Test Results (anemia) Allergies Active Allergy Reactions Severity Noted Date [...] as of this encounter Miscellaneous Notes * Addendum Note - KARLENE Navarro - 05/15/2023 12:48 PM EDTAddended by: TOI RASMUSSEN on: 05/15/2023 12:48 PM Modules accepted: Orders * Telephone Encounter - KARLENE Navarro - 05/15/2023 12:48 PM EDT Referral placed. * Telephone Encounter - Genia Sykes RN - 05/15/2023 11:04 AM EDT Patient called back. She states that she is agreeable to infusions. * Telephone Encounter - Genia Sykes RN [...] iron supplement once a day. 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[place] never received her prescription for the Iron [...] Obstetrics Sally Alvares CRNP [address] [place] [address] 05/30/2023 Office Visit Gynecology Obstetrics Sally Alvares CRNP [address] [place] [address] 06/06/2023 Office Visit Gynecology Obstetrics Honorio Hsu MD [address] [place] [address] 06/13/2023 Office Visit Gynecology Obstetrics Sally Alvares CRNP [address] [place] [address] 06/20/2023 Office Visit Gynecology Obstetrics [place], KARLENE Mena [address] [place] [address] 06/27/2023 Office Visit Gynecology Obstetrics [place], KARLENE Jain [address] [place] [address] Scheduled Referrals Name Type Priority Associated Diagnoses Orde r Schedule BLOOD MANAGEMENT REFERRAL Referral Within 10 days (routine) Antepartum anemia complicating Ordered: 05/15/2023 Health Maintenance Due Date Last [...] as of this encounter Visit Diagnoses Diagnosis Antepartum anemia complicating - Primary Anemia, antepartum documented in this encounter Care Teams Harbour Master Relationship Specialty Start Date End Date Melba Cr MD [address] [place] [address] PCP - General Internal Medicine 12/09/21 documented as of this encounter
--- OUTSIDE RECORDS SUMMARY | 2023-06-23 13:38 | External Medical Summary | Summary of Care ---
Author Name Unknown Organization [facility] Address [address] [facility] [place] [address] Phone [phone] Care Team Providers Care Concrete Finisher Name Role Phone Melba Cr MD Primary Care Provider Encounter Details Date Type Department Care Team (Late st Contact Info) Description 05/23/2023 Orders Only Hematology/Oncology Treatment, [place] [address] [place] [address] Phyllis Huggins CRNP [address] [place] [address] Allergies Active Allergy Reactions Criticality Noted Date [...] money to get more. Never true 02/16/2023 [place] Depression Scale Answer Date Recorded [place] Depression Scale Total 11 03/28/2023 The thought [...] Description 05/29/2023 10:00 AM EDT [address] [address] [place] [address] [place] [facility] [address] 05/30/2023 1:30 PM EDT Office Visit Gynecology/Obstetrics [facility] [address] [place] [address] Sally Alvares CRNP [address] [place] [address] 06/06/2023 3:00 PM EST Office Visit Gynecology/Obstetrics [facility] [address] [place] [address] Honorio Hsu MD [address] [place] [address] 06/13/2023 1:30 PM EST Office Visit Gynecology[facility]Obst[facility] [address] [place] [address] Sally Alvares CRNP [address] [place] [address] 06/20/2023 2:00 PM EST Office Visit Gynecology/Obstetrics [facility] [address] [place] [address] Phyllis Huggins CRNP [address] [place] [address] 06/27/2023 1:30 PM EST Office Visit Gynecology/Obstetrics [facility] [address] [place] [address] Sally Alvares CRNP [address] [place] [address] Health Maintenance Due Date Last Done Comments [...] filedocumented as of this encounter Care Teams Concrete Finisher Relationship Specialty Start Date End Date Melba Cr MD [address] [place] [address] PCP - General Internal Medicine 12/09/21 documented as of this encounter
--- OUTSIDE RECORDS SUMMARY | 2023-06-23 13:38 | External Medical Summary | Summary of Care ---
Author Name Unknown Organization [facility] Address [address] [place] [address] Phone [phone] Care Team Providers Care Wellness Assistant Name Role Phone Melba Cr MD Primary Care Provider Reason for Referral * Evaluate & Treat - Unlimited Visits (Within 10 days (routine)) - Pending Review Specialty Diagnoses / Procedures Referred By Yordy diana Referred To Contact Pharmacist / Pharmacy Diagnoses ARIELLE (iron deficiency anemia) Phyllis Huggins CRNP [address] [place] [address] Referral ID Status Reason Start Date Expiration Date Visits Requested Visits Authorized [id number] Pending Review Specialty Services Required 3 99 99 Question Answer Referral Priority Within 10 days (routine) Where should this appointment be scheduled? [facility] Department: Specialist Specialty: representative personal service Reason for Referral: Anemia Comments Pharmacist Medication Therapy Management: Iron deficiency anemia Dean Del Angel RN Reason for Visit * Reason Onset Date Comments Blood Management Program 05/15/2023 Encounter Details Date Type Department Care Team (Late st Contact Info) Description 05/15/2023 Telephone Patient Blood Management, [facility] [address] [place] [address] Phyllis Huggins CRNP [address] [place] [address] Blood Management Program Allergies Active Allergy Reactions [...] money to get more. Never true 02/16/2023 Amagon Depression Scale Answer Date Recorded [place] Depression Scale Total 11 03/28/2023 The thought [...] Venofer 300mg IV weekly x 3 doses [place] created and routed to anemic clinic for signature Prior auth is not needed, patient can be scheduled once plan is signed * Telephone Encounter - Dean Del Angel RN - 05/15/2023 1:02 PM EDT Recommend IV iron per OB MTM protocol. Infusion at [facility]. documented in this encounter Plan of Treatment Upcoming Encounters Date Type Department Care Team (Late st Contact Info) Description 05/29/2023 10:00 AM EDT Pharmacy Pharmacy, [facility] [address] [place] [address] Clinic, [place] [address] [facility] [place] [address] 05/30/2023 1:30 PM EDT Office Visit Gynecology/Obstetrics [facility] [address] [place] [address] Sally Alvares CRNP [address] [place] [address] 06/06/2023 3:00 PM EST Office Visit Gynecology/Obstetrics [facility] [address] [place] [address] Honorio Hsu MD [address] [place] [address] 06/13/2023 1:30 PM EST Office Visit Gynecology/Obstetrics [facility] [address] [place] [address] Sally Alvares CRNP [address] [place] [address] 06/20/2023 2:00 PM EST Office Visit Gynecology/Obstetrics [facility] [address] [place] [address] Phyllis Huggins CRNP [address] [place] [address] 06/27/2023 1:30 PM EST Office Visit Gynecology/Obstetrics [facility] [address] [place] [address] Sally Alvares CRNP [address] [place] [address] Scheduled Referrals Name Type Priority Associated Diagnoses [...] unspecified documented in this encounter Care Teams Wellness Assistant Relationship Specialty Start Date End Date Melba Cr MD [address] [place] [address] PCP - General Internal Medicine 12/09/21 documented as of this encounter
--- OUTSIDE RECORDS SUMMARY | 2023-06-23 13:38 | External Medical Summary ---
Author Name Unknown Address Unknown Organization K01:[facility] - [address] [facility] [id number] Laboratory Report Ordering Provider Test Date Status RICO FUCHS 06/13/2023 13:35:19 Final Observation Date Value Abnormality Reference (Units ) Status Streptococcus agalactiae DNA [Presence] in Specimen by ROSY with probe detection 06/13/2023 13:35:19 Negative Negative Final No Group B Streptococcus det ected by culture-enhanced PCR (amplified probe).
The collection of vaginal/rectal swab specimen combinations (FDA approved specimen type) is optimal for the detection of Group B Streptococcus. Single source collection (vaginal only or rectal only) or alternate specimen sources may lead to false negative results. Performing Location [facility] - [address] [facility] [id number]
--- OUTSIDE RECORDS SUMMARY | 2023-06-23 13:38 | External Medical Summary | Summary of Care ---
Author Name Unknown Organization [facility] Address [address] [facility] [address] Phone [phone] Care Team Providers Care Shower Room Attendant Name Role Phone Melba Cr MD Primary Care Provider Encounter Details Date Type Department Care Team Description 05/14/2023 Telephone Gynecology/Obstetrics [address] [place] [address] Phyllis Huggins CRNP [address] [place] [address] Allergies Active Allergy Reactions Severity Noted Date Comments Bee Venom High 01/20/2014 WASP and HONETS documented as of this encounter (statuses as of 05/14/2023) Medications Medication Sig Dispensed Refills Start Date [...] as of this encounter (statuses as of 05/14/2023) Active Problems Problem Noted Date Antepartum anemia [...] as of this encounter (statuses as of 05/14/2023) Immunizations Name Administration Dates Next Due COVID-19 [...] iron supplement once a day. 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 for [...] Obstetrics Sally Alvares CRNP [address] [place] [address] 05/30/2023 Office Visit Gynecology Obstetrics Sally Alvares CRNP [address] [place] [address] 06/06/2023 Office Visit Gynecology Obstetrics Honorio Hsu MD [address] [place] [address] 06/13/2023 Office Visit Gynecology Obstetrics Sally Alvares CRNP [address] [place] [address] 06/20/2023 Office Visit Gynecology Obstetrics Phyllis Huggins CRNP [address] [place] [address] 06/27/2023 Office Visit Gynecology Obstetrics BackerSally CRNP [address] [place] [address] Health Maintenance Due Date Last Done Comments [...] filedocumented as of this encounter Care Teams Shower Room Attendant Relationship Specialty Start Date End Date Melba Cr MD [address] [place] [address] PCP - General Internal Medicine 12/09/21 documented as of this encounter
--- OUTSIDE RECORDS SUMMARY | 2023-06-23 13:38 | External Medical Summary | Summary of Care ---
Author Name Unknown Organization [facility] Address [address] [facility] [address] Phone [phone] Care Team Providers Care Paste Mixing Supervisor Name Role Phone Melba Cr MD Primary Care Provider Encounter Details Date Type Department Care Team Description 05/14/2023 Telephone Gynecology/Obstetrics [address] [place] [address] Phyllis Huggins CRNP [address] [place] [address] Allergies Active Allergy Reactions Severity Noted Date [...] iron supplement once a day. 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 for [...] Obstetrics Sally Alvares CRNP [address] [place] [address] 05/30/2023 Office Visit Gynecology Obstetrics Sally Alvares CRNP [address] [place] [address] 06/06/2023 Office Visit Gynecology Obstetrics Honorio Hsu MD [address] [place] [address] 06/13/2023 Office Visit Gynecology Obstetrics Sally Alvares CRNP [address] [place] [address] 06/20/2023 Office Visit Gynecology Obstetrics McHailPhyllis CRNP [address] [place] [address] 06/27/2023 Office Visit Gynecology Obstetrics Sally Alvares CRNP [address] [place] [address] Health Maintenance Due Date Last Done Comments [...] filedocumented as of this encounter Care Teams Paste Mixing Supervisor Relationship Specialty Start Date End Date Melba Cr MD [address] [facility] [place] [address] PCP - General Internal Medicine 12/09/21 documented as of this encounter
--- OUTSIDE RECORDS SUMMARY | 2023-06-23 13:38 | External Medical Summary | Summary of Care ---
Author Name Unknown Organization [facility] Address [address] [place] [address] Phone [phone] Care Team Providers Care Cotton Weigher Operator Name Role Phone Melba Cr MD Primary Care Provider Encounter Details Date Type Department Care Team (Late st Contact Info) Description 05/24/2023 Orders Only Pharmacy, [facility] [address] [place], [place] [id number] [facility] [address] [place], [place] [id number] Allergies Active Allergy Reactions Criticality Noted Date [...] money to get more. Never true 02/16/2023 [place] Depression Scale Answer Date Recorded [place] Depression Scale Total 11 03/28/2023 The thought [...] Description 05/29/2023 10:00 AM EDT Pharmacy Pharmacy, [facility] [address] [place] [address] [place] [address] [place] [address] 05/30/2023 1:30 PM EDT Office Visit Gynecology/Obstetrics [facility] [address] [place] [address] Sally Alvares CRNP [address] [place] [address] 06/06/2023 3:00 PM EST Office Visit Gynecology/Obstetrics [facility] [address] [place] [address] Honorio Hsu MD [address] [place] [address] 06/13/2023 1:30 PM EST Office Visit Gynecology/Obstetrics [facility] [address] [place] [address] Sally Alvares CRNP [address] [place] [address] 06/20/2023 2:00 PM EST Office Visit Gynecology/Obstetrics [facility] [address] [place] [address] Phyllis Huggins CRNP [address] [place] [address] 06/27/2023 1:30 PM EST Office Visit Gynecology/Obstetrics [facility] [address] [place] [address] Sally Alvares CRNP [address] [place] [address] Health Maintenance Due Date Last Done Comments [...] filedocumented as of this encounter Care Teams Cotton Weigher Operator Relationship Specialty Start Date End Date Melba Cr MD [address] [place] [address] PCP - General Internal Medicine 12/09/21 documented as of this encounter
--- OUTSIDE RECORDS SUMMARY | 2023-06-23 13:38 | External Medical Summary | Summary of Care ---
Author Name Unknown Organization [facility] Address [address] [place] [address] Phone [phone] Care Team Providers Care Equity Analyst Name Role Phone Melba Cr MD Primary Care Provider Reason for Referral * Evaluate & Treat - Unlimited Visits (Within 10 days (routine)) - Pending Review Specialty Diagnoses / Procedures Referred By Yordy diana Referred To Contact Pharmacist / Pharmacy Diagnoses ARIELLE (iron deficiency anemia) Phyllis Huggins CRNP [address] [place] [address] Referral ID Status Reason Start Date Expiration Date Visits Requested Visits Authorized [id number] Pending Review Specialty Services Required 3 [phone] Question Answer Referral Priority Within 10 days (routine) Where should this appointment be scheduled? 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 Never true 02/16/2023 [place] Depression Scale Answer Date Recorded [place] Depression Scale Total 11 03/28/2023 The thought [...] encounter Miscellaneous Notes * Telephone Encounter - Linnea Kamara RN - 05/25/2023 7:40 AM EDT Qulin is signed. Scheduling: please call patient to schedule 2 hour appt "venofer 08/01" (Phyllis Huggins). Thanks! Patient will need venofer once a week x3. * Telephone Encounter - Samantha Garg LPN - 05/23/2023 3:58 PM EDT Order received for Venofer 300mg IV weekly x 3 doses [place] created and routed to anemic clinic for signature Prior auth is not needed, patient can be scheduled once plan is signed * Telephone Encounter - Dean Del Angel RN - 05/15/2023 1:02 PM EDT Recommend IV iron per OB MTM protocol. Infusion at [facility]. documented in this encounter Plan of Treatment Upcoming Encounters Date Type Department Care Team (Late st Contact Info) Description 05/29/2023 10:00 AM EDT Pharmacy Pharmacy, [address] [address] Clinic, Anemia [address] [place] [address] 05/30/2023 1:30 PM EDT Office Visit Gynecology/Obstetrics [facility] [address] [place] [address] Sally Alvares CRNP [address] [place] [address] 06/06/2023 3:00 PM EST Office Visit Gynecology/Obstetrics [facility] [address] [place] [address] Honorio Hsu MD [address] [place] [address] 06/13/2023 1:30 PM EST Office Visit Gynecology/Obstetrics [facility] [address] [place] [address] Sally Alvares CRNP [address] [place] [address] 06/20/2023 2:00 PM EST Office Visit Gynecology/Obstetrics [facility] [address] [place] [address] Phyllis Huggins CRNP [address] [place] [address] 06/27/2023 1:30 PM EST Office Visit Gynecology/Obstetrics [facility] [address] [place] [address] Sally Alvares CRNP [address] [place] [address] Scheduled Referrals Name Type Priority Associated Diagnoses [...] unspecified documented in this encounter Care Teams Equity Analyst Relationship Specialty Start Date End Date Melba Cr MD [address] [place] [address] PCP - General Internal Medicine 12/09/21 documented as of this encounter
--- OUTSIDE RECORDS SUMMARY | 2023-06-23 13:38 | External Medical Summary | Summary of Care ---
Author Name Unknown Organization [facility] Address [address] [place] [address] Phone [phone] Care Team Providers Care Farm Facility Manager Name Role Phone Melba Cr MD Primary Care Provider Reason for Visit * Reason Comments Return Visit Encounter Details Date Type Department Care Team (Late st Contact Info) Description 06/13/2023 1:30 PM EST Office Visit Gynecology/Obstetric s [facility] [address] [place] [address] Sally Alvares CRNP [address] [address] Encounter for supervision of normal first in third trimester*; Bipolar disease during in third trimester (HCC); Maternal asthma complicating ; History of tetanus, diphtheria, and acellular pertussis booster vaccination (Tdap); Antepartum anemia complicating ; Breast feeding status of mother Allergies Active Allergy Reactions Criticality Noted Date Comments Bee Venom High 01/20/2014 WASP and HONETS documented as of this encounter (statuses as of 06/13/2023) Medications Medication Sig Dispensed Refills Start Date [...] as of this encounter (statuses as of 06/13/2023) Active Problems Problem Noted Date Diagnosed Date [...] as of this encounter (statuses as of 06/13/2023) Immunizations Name Administration Dates Next Due COVID-19 [...] money to get more. Never true 02/16/2023 Currie Depression Scale Answer Date Recorded Currie Depression Scale Total 11 03/28/2023 The thought [...] Sign Reading Time Taken Comments Blood Pressure 104/60 06/13/2023 1:14 PM EST Pulse - - Temperature - - Respiratory Rate - - Oxygen Saturation - - Inhaled Oxygen Concentration - - Weight 94.8 kg (209 lb) 06/13/2023 1:14 PM EST Height - - Body Mass Index 38.23 06/06/2023 3:01 PM EST documented in this encounter Progress Notes * Sally Alvares CRNP - 06/13/2023 1:28 PM EST 37w4d Some contractions on and off, not regular. Baby is moving well. No leaking or bleeding. GBS swab today. Feeling anxious about approaching due date; encouraged hospital tour, CBE classes. Requesting breast pump rx. Reviewed [facility] and labor signs. 1 week return. Fur Scraper Documentation Provider requested gang leader. Name of gang leader: KARLENE Guido LPN documented in this encounter Nursing Notes * Aida Winkler LPN - 06/13/2023 1:17 PM EST 37w4d Denies vaginal bleeding/rom + movement Feeling some contractions but nothing consistent GBS today Pt already received labor instructions documented in this encounter Plan of Treatment Upcoming Encounters Date Type Department Care Team (Late st Contact Info) Description 06/19/2023 10:00 AM EST Pharmacy Pharmacy, [place] [address] [place] [address] Clinic, [facility] [address] [place] [address] 06/20/2023 2:00 PM EST Office Visit Gynecology/Obstetrics [facility] [address] [facility] [place] [address] Phyllis Huggins CRNP [address] [place] [address] 06/27/2023 1:30 PM EST Office Visit Gynecology/Obstetrics [facility] [address] [place] [address] Sally Alvares CRNP [address] [place] [address] Pending Results Name Type Priority Associated Diagnoses Date /Time GROUP B STREP CULTURE/PCR Lab Routine Encounter for supervision of normal first in third trimester 06/13/2023 1:35 PM EST Health Maintenance Due Date Last Done Comments [...] vaccination (Tdap) Antepartum anemia complicating Anemia, antepartum Breast feeding status of mother care and examination of lactating mother documented in this encounter Care Teams Farm Facility Manager Relationship Specialty Start Date End Date Melba Cr MD [address] [place] [address] PCP - General Internal Medicine 12/09/21 documented as of this encounter
--- OUTSIDE RECORDS SUMMARY | 2023-06-23 13:38 | External Medical Summary | Summary of Care ---
Author Name Unknown Organization [facility] Address [address] [place] [facility] [place] [address] Phone [phone] Care Team Providers Care Icu Tech Name Role Phone Melba Cr MD Primary Care Provider Reason for Visit * Reason Comments Infusion Venofer / Encounter Details Date Type Department Care Team (Latest Contact Info) Description 05/28/2023 1:45 PM EDT Hem/Onc Treatment Hematology/Oncology Treatment, [address] [address] [place], Chair [address] Hem Onc [address] [place] [address] Iron deficiency anemia, unspecified iron deficiency anemia type* Allergies Active Allergy Reactions Criticality Noted Date Comments Bee Venom High 01/20/2014 WASP and HONETS documented as of this encounter (statuses as of 05/28/2023) Medications Medication Sig Dispensed Refills Start Date [...] as of this encounter (statuses as of 05/28/2023) Active Problems Problem Noted Date Diagnosed Date Iron deficiency anemia 05/23/2023 Antepartum anemia complicating 023 History of tetanus, diphther ia, and acellular pertussis booster vaccination (Tdap) 03/08/2023 Overview: Received around 22 weeks for [employer] Bipolar disease during 12/06/2022 Maternal asthma complicating , normal first 11/08/2022 Mild intermittent asthma without complication Bipolar affective disorder, currently depressed, moderate 10/28/2021 Estimated Date of Delivery Comme nts Yes 06/30/2023 Based on Ultraso und documented as of this encounter (statuses as of 05/28/2023) Immunizations Name Administration Dates Next Due COVID-19 [...] money to get more. Never true 02/16/2023 [place] Depression Scale Answer Date Recorded [place] Depression Scale Total 11 03/28/2023 The thought [...] Sign Reading Time Taken Comments Blood Pressure 106/69 05/28/2023 2:38 PM EDT Pulse 74 05/28/2023 2:38 PM EDT Temperature 36.5 C (97.7 F) 05/28/2023 2:38 PM ED T Respiratory Rate 18 05/28/2023 2:38 PM EDT Oxygen Saturation 97% 05/28/2023 2:38 PM EDT Inhaled Oxygen Concentration - - Weight - - Height - - Body Mass Index - - documented in this encounter Nursing Notes * Ayala Escudero LPN - 05/28/2023 2:38 PM EDT 1345: Chair 12. Pt arrived for Venofer 08/01 infusion. PIV in LFA. Pt tolerated well. VSS. No complaints at this time. 1525: Pt tolerated Venofer infusion well. PIV removed intact. Pt to return in one week. Discharged in stable condition. documented in this encounter Plan of Treatment Upcoming Encounters Date Type Department Care Team (Late st Contact Info) Description 05/29/2023 10:00 AM EDT Pharmacy Pharmacy, [place] [address] [place] [address] Clinic, [facility] [address] [place] [address] 05/30/2023 1:30 PM EDT Office Visit Gynecology/Obstetrics [facility] [address] [facility] [place] [address] Sally Alvares CRNP [address] [facility] [place] [address] 06/04/2023 1:45 PM EST Hem/Onc Treatment Hematology[facility]Oncology Treatment, [place] [facility] [address] [place], Chair 3 Hem Onc Scen[address] [facility] [address] 06/06/2023 3:00 PM EST Office Visit Gynecology/Obstetrics [facility] [address] [facility] [place] [address] Honorio Hsu MD [address] [place] [address] 06/11/2023 1:30 PM EST Hem/Onc Treatment Hematology/Oncology Treatment, [place] [address] [place] [address] [place], Chair 8 Hem Onc Scenery [address] [place] [address] 06/13/2023 1:30 PM EST Office Visit Gynecology/Obstetrics [facility] [address] [place] [address] Sally Alvares CRNP [address] [place] [address] 06/20/2023 2:00 PM EST Office Visit Gynecology/Obstetrics [facility] [address] [place] [address] Phyllis Huggins CRNP [address] [place] [address] 06/27/2023 1:30 PM EST Office Visit Gynecology/Obstetrics [facility] [address] [place] [address] Sally Alvares CRNP [address] [place] [address] Health Maintenance Due Date Last Done Comments [...] anemia type- Primary documented in this encounter Administered Medications Active Administered Medications - up to 3 most recent administrations Medication Order MAR Action Action Date Dose Rate Site diphenhydrAMINE (Benadryl) inj 50 mg 50 mg, IV Push, ONCE PRN Other, Hypersensitivity Reaction, Starting on Sun05/28/23 at 1348, Until Sun05/29/23 at 1347, For 24 hours EPINEPHrine 1 MG/ML inj 0.3 mg 0.3 mg, Intramuscular, ONCE PRN Other, Hypersensitivity Reaction or Anaphylaxis, Starting on Sun05/28/23 at 1348, Until Sun05/29/23 at 1347, For 24 hours hEParin 100 UNIT/ML Lock Flush inj 500 Units 500 Units (5 mL), IV Lock, PRN Other, IV Flush, Starting on Sun05/28/23 at 1348, Until Sun05/29/23 at 1347, For 24 hours, Do not flush if lock, PICC, or central line not in place; IV infusing or unable to flush. Hydrocortisone Sod Suc (PF) (Solu-Cortef) inj 100 mg 100 mg, IV Push, ONCE PRN Other, Hypersensitivity Reaction, Starting on Sun05/28/23 at 1348, Until Sun05/29/23 at 1347, For 24 hours NSS infusion 500 mL, Intravenous, at 50 mL/hr, CONTINUOUS, Starting on Sun05/28/23 at 1500, Until Sun05/29/23 at 0059 Start Infusion 05/28/2023 1:48 PM EDT 500 mL 50 mL/hr oxygen GAS Inhalation, OXYGEN, First dose on Sun05/28/23 at 1600, Until Discontinued, Device/Managed by: Low Flow Device, Goal SPO2 (%): 91-95, Starting Device: Nasal Cannula, Inital Flow Rate (LPM): 2, Lowest Support: Nasal Cannula: Flow 0-6 LPM. Titrate up/down by 1 LPM., Higher Support: Non-Rebreather (NRB) Mask: Minimum of 10 LPM. Titrate to maintain bag inflation., Titration Interval: Q2 minutes and as needed., Notify Provider: For sudden DECREASE in resting SPO2 to less than 85% and when escalating delivery device. sodium chloride 0.9 % flush central line 10 mL 10 mL, IV Push, PRN Other, IV Flush, Starting on Sun05/28/23 at 1348, Until Sun05/29/23 at 1347, For 24 hours, Do not flush if lock, PICC, or central line not in place; IV infusing or unable to flush. Inactive Administered Medications - up to 3 most recent administrations Medication Order MAR Action Action Date Dose Rate Site Iron Sucrose (Venofer) 300 mg in NSS 250 mL ivpb 300 mg, IV Piggyback, ONCE, 1 dose, On Sun05/28/23 at 1530, Administer over 90 Minutes Start Infusion 05/28/2023 1:48 PM EDT 300 mg 166.67 mL/hr documented in this encounter Care Teams Icu Tech Relationship Specialty Start Date End Date Melba Cr MD [address] [place] [address] PCP - General Internal Medicine 12/09/21 documented as of this encounter
--- OUTSIDE RECORDS SUMMARY | 2023-06-23 13:39 | External Medical Summary | Summary of Care ---
Author Name Unknown Organization [facility] Address [address] [place] [address] Phone [phone] Care Team Providers Care Physician Office Secretary Name Role Phone Melba Cr MD Primary Care Provider Reason for Visit * Reason Comments Outpatient Testing Encounter Details Date Type Department Care Team Description 03/28/2023 Laboratory Laboratory, [facility] [address] [place] [phone] [facility] [address] [place] [address] Encounter for supervision of normal first in second trimester Allergies Active Allergy Reactions Severity Noted Date Comments Bee Venom High 01/20/2014 WASP and HONETS documented as of this encounter (statuses as of 03/28/2023) Medications Medication Sig Dispensed Refills Start Date End Date Status Albuterol Sulfate HFA 108 (90 Base) MCG/ACT Inhalation Aerosol SolutionIndications:as needed Inhale 2 Puffs by mouth. 0 12/25/2019 Active EPINEPHrine 0.3 MG/0.3ML Injection Solution Auto-injector (Autoinjector) Inject 0.3 mg into a large muscle. 0 12/25/2019 Active 27-0.8 MG Oral Tablet Take 1 Tablet by mouth daily at noon. 0 Active documented as of this encounter (statuses as of 03/28/2023) Active Problems Problem Noted Date History of tetanus, diphther ia, and acellular [...] as of this encounter (statuses as of 03/28/2023) Immunizations Name Administration Dates Next Due COVID-19 mRNA, LNP-s, No Pre serve, 2-Dose Series (Moderna) 02/03/2021,01/06/2021 DTaP - Dipth/Tet/Acell Pertussis 006,08/06/2002,05/15/2001,03/19,01/08/2001 HPV Vaccine, 9-Valent 05/11/2022,12/09/2021 Haemophilus B (HIB) 11/18/2001,03/19/2001,2000 Hepatitis A Vaccine 03/18/2009,12/11/2007 Hepatitis B Vaccine 11/18/2001,03/19/2001,2000 Hepatitis B, 20+ yrs 02/15/2023,01/11/2023 IPV - Polio Virus Vaccine (Inact) 2013,08/06/2002,05/15/2001,03/19,01/08/2001 MMR - Measles/Mumps/Rubella Vaccine 02/22/2006,0 08/06/2002 Meningococcal Polysaccharide Vaccine (Menommune) 10/16/2012 PPD 01/11/2023,01/04/2023 Pneumococcal Conjugate Vacci ne, 7 Valent 05/15/2001,03/19/2001,01/08/2001 Seasonal Influenza, PF, 6 mo ns & Above, IM , (Flulaval) 06/14/2022,05/11/2022,06/16/2021 Seasonal Influenza, Split, I IV3, With Preserve, [...] Encounters Date Type Specialty Care Team Description 04/10/2023 Office Visit Gynecology Obstetrics Phyllis Huggins CRNP [address] [place] [address] 04/25/2023 Office Visit Gynecology Obstetrics Phyllis Huggins CRNP [address] [place] [address] 05/09/2023 Office Visit Gynecology Obstetrics Sally Alvares CRNP [address] [address] 05/23/2023 Office Visit Gynecology Obstetrics Sally Alvares CRNP [address] [place] [address] 05/30/2023 Office Visit Gynecology Obstetrics Backtrey KARLENE Jain [address] [place] [address] 06/06/2023 Office Visit Gynecology Obstetrics Honorio Hsu MD [address] [place] [address] 06/13/2023 Office Visit Gynecology Obstetrics Dia KARLENE Jain [address] [place] [address] 06/20/2023 Office Visit Gynecology Obstetrics McHail, KARLENE Mena [address] [place] [address] 06/27/2023 Office Visit Gynecology Obstetrics [place] KARLENE Jain [address] [place] [address] Pending Results Name Type Priority Associated Diagnoses Date /Time CBC WITH WBC DIFFERENTIAL AND ANEMIA REFLEX WORKUP Lab Routine Encounter for supervision of normal first in second trimester 03/28/2023 2:16 PM EDT SYPHILIS ANTIBODY SCREEN WITH REFLEX TO RPR Lab Routine Encounter for supervision of normal first in second trimester 03/28/2023 2:16 PM EDT 50-G GESTATIONAL GLUCOSE, 1 HOUR Lab Routine Encounter for supervision of normal first in second trimester 03/28/2023 2:16 PM EDT ANEMIA CBC Lab Routine Encounter for supervision of normal first in second trimester 03/28/2023 2:16 PM EDT DIFFERENTIAL, AUTOMATED Lab Routine Encounter for supervision of normal first in second trimester 03/28/2023 2:16 PM EDT ANEMIA REFLEX CHEMISTRY HOLD Lab Routine Encounter for supervision of normal first in second trimester 03/28/2023 2:16 PM EDT SYPHILIS ANTIBODY SCREEN Lab Routine Encounter for supervision of normal first in second trimester 03/28/2023 2:16 PM EDT Health Maintenance Due Date Last Done Comments Pneumococcal Vaccine: Pediatrics (0 to 5 Years) and At-Risk Patients (6 to 64 Years) (1 - PCV) 2006 Depression Screening, Annual for Pts 12 and Over 2012 COVID-19 Vaccine (3 - Moderna series) 03/31/2021 02/03/2021, 01/06/2021 *SPIROMETRY ONCE FOR ASTHMA-ADULT 06/22/2022 GARDASIL-HPV IMMUNIZATION SERIES (3 - 3-dose series) 09/11/2022 05/11/2022, 12/09/2021 Influenza Vaccine (FLU shot) (#1) 2023 06/14/2022, 05/11/2022, 06/16/2021, Additional history exists Gonorrhea / Chlamydia Screen 11/09/2023 11/08/2022, 10/28/2021 Pap Smear 11/08/2025 11/08/2022 DTaP,Tdap,and Td Vaccines (8 - Td or Tdap) 02/21/2033 02/21/2023, 10/16/2012, 02/22/2006, Additional history exists MENINGOCOCCAL (MENACTRA/MENVEO) Aged Out 10/16/2012 No longer eligible based on patient's age to complete this topic Hepatitis C Screening Completed 11/08/2022 , 11/08/2022, 11/08/2022 Hepatitis B Completed 02/15/2023, 12/28, 11/18/2001, Additional history exists documented as of this encounter Medical Devices Not on filedocumented as of this encounter Visit Diagnoses Diagnosis Encounter for supervision of normal first in second trimester Supervision of normal first documented in this encounter Care Teams Physician Office Secretary Relationship Specialty Start Date End Date Melba Cr MD [address] [place] [address] PCP - General Internal Medicine 12/09/21 documented as of this encounter
--- OUTSIDE RECORDS SUMMARY | 2023-06-23 13:39 | External Medical Summary ---
Author Name Unknown Address Unknown Organization [id number]:LABORATORY [facility] [address] - [address] [place] [address] Laboratory Report Ordering Provider Test Date Status KRISSY FUCHSSHERRIE 03/28/2023 14:16:54 Final Observation Date Value Abnormality Reference (Units ) Status Glucose [Moles/volume] in Serum or Plasma --1 hour post 50 g glucose PO 03/28/2023 14:16:54 90 70-129 (mg/dL) Final Performing Location [facility]ATORY [facility] [address] - [address] [place] [address]
--- OUTSIDE RECORDS SUMMARY | 2023-06-23 13:39 | External Medical Summary | Summary of Care ---
Author Name Unknown Organization [facility] Address [address] [place] [facility] [place] [address] Phone [phone] Care Team Providers Care Director Of Materials Name Role Phone Melba Cr MD Primary Care Provider Encounter Details Date Type Department Care Team Description 05/01/2023 Abstract Family [facility] 132 [facility] [place] [address] Reina Álvarez, RN Allergies Active Allergy Reactions Severity Noted Date Comments Bee Venom High 01/20/2014 WASP and HONETS documented as of this encounter (statuses as of 05/01/2023) Medications Medication Sig Dispensed Refills Start Date [...] as of this encounter (statuses as of 05/01/2023) Active Problems Problem Noted Date Antepartum anemia [...] as of this encounter (statuses as of 05/01/2023) Immunizations Name Administration Dates Next Due COVID-19 [...] Encounters Date Type Specialty Care Team Description 05/09/2023 Office Visit Gynecology Obstetrics Sally Alvares CRNP [address] [address] 05/23/2023 Office Visit Gynecology Obstetrics Sally Alvares CRNP [address] [address] 05/30/2023 Office Visit Gynecology Obstetrics Sally Alvares CRNP [address] [address] 06/06/2023 Office Visit Gynecology Obstetrics Honorio Hsu MD [address] [place] [address] 06/13/2023 Office Visit Gynecology Obstetrics Sally Alvares CRNP [address] [place] [address] 06/20/2023 Office Visit Gynecology Obstetrics Phyllis Huggins CRNP [address] [place] [address] 06/27/2023 Office Visit Gynecology Obstetrics Sally Alvares CRNP [address] [place] [address] Health Maintenance Due Date Last Done Comments [...] filedocumented as of this encounter Care Teams Director Of Materials Relationship Specialty Start Date End Date Melba Cr MD [address] [place] [address] PCP - General Internal Medicine 12/09/21 documented as of this encounter
--- OUTSIDE RECORDS SUMMARY | 2023-06-23 13:39 | External Medical Summary | Summary of Care ---
Author Name Unknown Organization [facility] Address [address] [place] [facility] [place] [address] Phone [phone] Care Team Providers Care Die Cutter Name Role Phone Melba Cr MD Primary Care Provider Reason for Visit * Reason Comments Return Visit Encounter Details Date Type Department Care Team Description 02/01/2023 Office Visit Gynecology/Obstetrics [facility] [address] [place] [address] Sally Alvares CRNP [address] [place] [address] Encounter for supervision of normal first in second trimester*; Bipolar disease during in second trimester (HCC); Maternal asthma complicating Allergies Active Allergy Reactions Severity Noted Date Comments Bee Venom High 01/20/2014 WASP and HONETS documented as of this encounter (statuses as of 02/01/2023) Medications Medication Sig Dispensed Refills Start Date End Date Status Albuterol Sulfate HFA 108 (90 Base) MCG/ACT Inhalation Aerosol SolutionIndication s:as needed Inhale 2 Puffs by mouth. 0 12/25/2019 Active EPINEPHrine 0.3 MG/0.3ML Injection Solution Auto-injector (Autoinjector) Inject 0.3 mg into a large muscle. 0 12/25/2019 Active 27-0.8 MG Oral Tablet Take 1 Tablet by mouth daily at noon. 0 Active Ondansetron HCl 8 MG Oral TabletIndications: Encounter for supervision of normal first in second trimester Take 1 Tablet by mouth every 8 hours as needed for Nausea. 30 Tablet 2 02/01/2023 Active Ondansetron HCl 8 MG Oral Tablet Take 1 Tablet by mouth every 8 hours as needed for Nausea. 30 Tablet 2 12/06/2022 02/01/2023 Discontinued (Refill) documented as of this encounter (statuses as of 02/01/2023) Active Problems Problem Noted Date Bipolar disease during 023 Maternal asthma complicating 0 12/06/2022 , normal first 11/08/2022 Mild intermittent asthma without complic ation 05/11/2022 Bipolar affective disorder, currently de pressed, moderate 10/28/2021 Estimated Date of Delivery Comme nts Yes 06/30/2023 Based on Ultraso und documented as of this encounter (statuses as of 02/01/2023) Immunizations Name Administration Dates Next Due COVID-19 mRNA, LNP-s, No Pre serve, 2-Dose Series (Moderna) 02/03/2021,01/06/2021 DTaP - Dipth/Tet/Acell Pertussis 006,08/06/2002,05/15/2001,03/19,01/08/2001 HPV Vaccine, 9-Valent 05/11/2022,12/09/2021 Haemophilus B (HIB) 11/18/2001,03/19/2001,2000 Hepatitis A Vaccine 03/18/2009,12/11/2007 Hepatitis B Vaccine 11/18/2001,03/19/2001,2000 Hepatitis B, 20+ yrs 01/11/2023 IPV - Polio Virus Vaccine (Inact) 2013,08/06/2002,05/15/2001,03/19,01/08/2001 MMR - Measles/Mumps/Rubella Vaccine 02/22/2006,0 08/06/2002 Meningococcal Polysaccharide Vaccine (Menommune) 10/16/2012 PPD 01/11/2023,01/04/2023 Pneumococcal Conjugate Vacci ne, 7 Valent 05/15/2001,03/19/2001,01/08/2001 Seasonal Influenza, Quadriva lent, No Preserve, 6 Mons & Above, IM 06/14/2022,05/11/2022,06/16/2021 Seasonal Influenza, Split, I IV3, With Preserve, Inj 04/21/2013 TDAP (age 10 and older)(Boostrix) 10/16/2012 Varicella Vaccine (Chicken Pox) 12/11/2007,08/06 documented as [...] got money to buy more. Never true 10/27/2022 Within the past 12 months, t he food you bought just didn't last and you didn't have money to get more. Never true 10/27/2022 Estimated Date of Delivery Comme nts Yes 06/30/2023 Based on Ultraso und Sex Assigned at Date Recorded Female 10/27/2022 7:27 PM E DT Job Start Date Occupation Industry Not on file Not on file Not on file documented as of this encounter Last Filed Vital Signs Vital Sign Reading Time Taken Comments Blood Pressure 108/62 02/01/2023 9:15 AM EDT Pulse - - Temperature - - Respiratory Rate - - Oxygen Saturation - - Inhaled Oxygen Concentration - - Weight 81.2 kg (179 lb) 02/01/2023 9:15 AM EDT Height - - Body Mass Index 30.73 01/04/2023 1:36 PM EDT documented in this encounter Progress Notes * KARLENE Love - 02/01/2023 9:16 AM EDT + movement. No cramping, bleeding. Nausea improved. Mood and asthma well controlled. No current marijuana use. Declines genetic screening. Anatomy scan ordered for 20 wks. KARLENE Travis documented in this encounter Nursing Notes * Aida Winkler LPN - 02/01/2023 9:14 AM EDT 18w5d Denies vaginal bleeding/rom + movement documented in this encounter Plan of Treatment Upcoming Encounters Date Type Specialty Care Team Description 02/12/2023 Imaging Radiology 03/02/2023 Office Visit Gynecology Obstetrics Phyllis Huggins CRNP [address] [place] [address] Scheduled Orders Name Type Priority Associated Diagnoses Orde r Schedule US PREG SINGLE/1ST GEST, 14 WEEKS OR LATER Medical Imaging Routine Encounter for supervision of normal first in second trimester Expected: 02/12/2023 (Approximate), Expires: 03/04/2024 Health Maintenance Due Date Last Done Comments Pneumococcal Vaccine: Pediatrics (0 to 5 Years) and At-Risk Patients (6 to 64 Years) (1 - PCV) 2006 Depression Screening, Annual for Pts 12 and Over 2012 COVID-19 Vaccine (3 - Moderna series) 03/31/2021 02/03/2021, 01/06/2021 *SPIROMETRY ONCE FOR ASTHMA-ADULT 06/22/2022 GARDASIL-HPV IMMUNIZATION SERIES (3 - 3-dose series) 09/11/2022 05/11/2022, 12/09/2021 DTaP,Tdap,and Td Vaccines (7 - Td or Tdap) 10/16/2022 10/16/2012, 02/22/2006, 08/06/2002, Additional history exists Influenza Vaccine (FLU shot) (#1) 2023 06/14/2022, 05/11/2022, 06/16/2021, Additional history exists Gonorrhea / Chlamydia Screen 11/09/2023 11/08/2022, 10/28/2021 Pap Smear 11/08/2025 11/08/2022 MENINGOCOCCAL (MENACTRA/MENVEO) Aged Out 10/16/2012 No longer eligible based on patient's age to complete this topic Hepatitis C Screening Completed 11/08/2022 , 11/08/2022, 11/08/2022 Hepatitis B Completed 01/11/2023, 10/29, 03/19/2001, Additional history exists documented as of this encounter Medical Devices Not on filedocumented as of this encounter Visit Diagnoses Diagnosis Encounter for supervision of normal first in second trimester- Primary Supervision of normal first Bipolar disease during in second trimester (HCC) Maternal asthma complicating Other current maternal conditions classifiable elsewhere, complicating , childbirth, or the puerperium, unspecified as to episode of care documented in this encounter Care Teams Die Cutter Relationship Specialty Start Date End Date Melba Cr MD [address] [place] [address] PCP - General Internal Medicine 12/09/21 documented as of this encounter
--- OUTSIDE RECORDS SUMMARY | 2023-06-23 13:39 | External Medical Summary ---
Author Name Unknown Address Unknown Organization [id number]:[facility] [place] [address] [address] Laboratory Report Ordering Provider Test Date Status TOIGRADY 05/11/2023 15:13:36 Final Observation Date Value Abnormality Reference (Units ) Status Retic, % (auto) 05/11/2023 15:13:36 2.10 Above high normal 0.80-1.90 (%) Final Reticulocytes, Absolute 05/11/2023 15:13:36 84.0 31.3-100.1 (K/uL) Final Reticulocyte fraction, immature 05/11/2023 15:13:36 31.0 Above high normal 2.5-20.6 (%) Final Reticulocyte HGB 05/11/2023 15:13:36 25.8 Below low normal 29.7-37.4 (pg) Final Performing Location [facility] [place] - [address] [place] [address]
--- OUTSIDE RECORDS SUMMARY | 2023-06-23 13:39 | External Medical Summary ---
Author Name Unknown Address Unknown Organization [id number]:LAB[facility]ATORY [facility] [place] - [address] [facility]. [facility] [address] Laboratory Report Ordering Provider Test Date Status GRADY CM 05/11/2023 15:13:36 Final Observation Date Value Abnormality Reference (Units ) Status SYNC LEUKOCYTES IN BLOOD BY AUTOMATED COUNT 05/11/2023 15:13:36 10.77 4.00-10.80 (K/uL) Final Segs 05/11/2023 15:13:36 74.4 40.0-75.0 (%) Final Lymphs % 05/11/2023 15:13:36 18.7 18.0-42.0 (%) Final Monos 05/11/2023 15:13:36 4.8 1.0-11.0 (%) Final Eosinophils 05/11/2023 15:13:36 1.2 0.0-6.0 (%) Final Basos 05/11/2023 15:13:36 0.4 0.0-2.0 (%) Final Immature Granulocyte, Percent 05/11/2023 15:13:36 0.5 0.0-2.0 (%) Final Absolute Segs 05/11/2023 15:13:36 8.02 Above high normal 1.80-7.70 (K/uL) Final Lymphs, absolute 05/11/2023 15:13:36 2.01 1.00-4.80 (K/ul) Final Monos, Abs 05/11/2023 15:13:36 0.52 0.00-1.10 (K/uL) Final Eos, Abs 05/11/2023 15:13:36 0.13 0.00-0.70 (K/uL) Final Basos, Abs 05/11/2023 15:13:36 0.04 0.00-0.20 (K/uL) Final Immature Granulocytes, Number 05/11/2023 15:13:36 0.05 0.00-0.20 (K/uL) Final Performing Location LABORATORY [facility] [place] - [address] [facility] [address]
--- OUTSIDE RECORDS SUMMARY | 2023-06-23 13:39 | External Medical Summary | Summary of Care ---
Author Name Unknown Organization [facility] Address [address] [place] [address] Phone [phone] Care Team Providers Care Nursing Unit Manager Name Role Phone Melba Cr MD Primary Care Provider Reason for Visit * Reason Comments Outpatient Testing Encounter Details Date Type Department Care Team Description 05/11/2023 Laboratory Laboratory, [facility] [address] [place] [phone] [facility] [address] [place] [address] Antepartum anemia complicating Allergies Active Allergy Reactions Severity Noted Date Comments Bee Venom High 01/20/2014 WASP and HONETS documented as of this encounter (statuses as of 05/11/2023) Medications Medication Sig Dispensed Refills Start Date [...] as of this encounter (statuses as of 05/11/2023) Active Problems Problem Noted Date Antepartum anemia [...] as of this encounter (statuses as of 05/11/2023) Immunizations Name Administration Dates Next Due COVID-19 [...] Obstetrics Sally Alvares CRNP [address] [place] [address] 05/30/2023 Office Visit Gynecology Obstetrics Sally Alvares CRNP [address] [place] [address] 06/06/2023 Office Visit Gynecology Obstetrics Honorio Hsu MD [address] [place] [address] 06/13/2023 Office Visit Gynecology Obstetrics BackSally yang CRNP [address] [place] [address] 06/20/2023 Office Visit Gynecology Obstetrics McHail, KARLENE Mena [address] [place] [address] 06/27/2023 Office Visit Gynecology Obstetrics BackerSally CRNP [address] [place] [address] Pending Results Name Type Priority Associated Diagnoses Date /Time CBC WITH WBC DIFFERENTIAL AND ANEMIA REFLEX WORKUP Lab Routine Antepartum anemia complicating 05/11/2023 3:13 PM EDT ANEMIA CBC Lab Routine Antepartum anemia complicating 05/11/2023 3:13 PM EDT DIFFERENTIAL, AUTOMATED Lab Routine Antepartum anemia complicating 05/11/2023 3:13 PM EDT ANEMIA REFLEX CHEMISTRY HOLD Lab Routine Antepartum anemia complicating 05/11/2023 3:13 PM EDT Health Maintenance Due Date Last [...] encounter Visit Diagnoses Diagnosis Antepartum anemia complicating Anemia, antepartum documented in this encounter Care Teams Nursing Unit Manager Relationship Specialty Start Date End Date Melba Cr MD [address] [place] [address] PCP - General Internal Medicine 12/09/21 documented as of this encounter
--- OUTSIDE RECORDS SUMMARY | 2023-06-23 13:39 | External Medical Summary ---
Author Name Unknown Address Unknown Organization [id number][place] [place] [address] [place] [address] Laboratory Report Ordering Provider Test Date Status RICO FUCHS 03/28/2023 14:16:54 Final Observation Date Value Abnormality Reference (Units ) Status Iron 03/28/2023 14:16:54 39 33-151 (ug/dL) Final Iron-binding capacity 03/28/2023 14:16:54 437 Above high normal 250-425 (ug/dL) Final Transferrin Sat % 03/28/2023 14:16:54 9 Below low normal 15-55 (%) Final Performing Location LABORATORY C - [address] [place] [address]
--- OUTSIDE RECORDS SUMMARY | 2023-06-23 13:39 | External Medical Summary | Summary of Care ---
Author Name Unknown Organization [facility] Address [address] [place] [facility] [place] [address] Phone [phone] Care Team Providers Care Primary Operator Name Role Phone Melba Cr MD Primary Care Provider Encounter Details Date Type Department Care Team Description 01/06/[address] [facility] [address] [facility] Nurse Fam Prac [address] [facility] [place] [address] Allergies Active Allergy Reactions Severity Noted Date Comments Bee Venom High 01/20/2014 WASP and HONETS documented as of this encounter (statuses as of 01/06/2023) Medications Medication Sig Dispensed Refills Start Date [...] 0 Active Ondansetron HCl 8 MG Oral Tablet Take 1 Tablet by mouth every 8 hours as needed for Nausea. 30 Tablet 2 12/06/2022 Active documented as of this encounter (statuses as of 01/06/2023) Active Problems Problem Noted Date Bipolar disease during 023 Maternal asthma complicating 0 12/06/2022 , normal first 11/08/2022 Mild intermittent asthma without complic ation 05/11/2022 Bipolar affective disorder, currently de pressed, moderate 10/28/2021 Estimated Date of Delivery Comme nts Yes 06/30/2023 Based on Ultraso und documented as of this encounter (statuses as of 01/06/2023) Immunizations Name Administration Dates Next Due COVID-19 mRNA, LNP-s, No Pre serve, 2-Dose Series (Moderna) 02/03/2021,01/06/2021 DTaP - Dipth/Tet/Acell Pertussis 006,08/06/2002,05/15/2001,03/19,01/08/2001 HPV Vaccine, 9-Valent 05/11/2022,12/09/2021 Haemophilus B (HIB) 11/18/2001,03/19/2001,2000 Hepatitis A Vaccine 03/18/2009,12/11/2007 Hepatitis B Vaccine 11/18/2001,03/19/2001,2000 IPV - Polio Virus Vaccine (Inact) 2013,08/06/2002,05/15/2001,03/19,01/08/2001 MMR - Measles/Mumps/Rubella Vaccine 02/22/2006,0 08/06/2002 Meningococcal Polysaccharide Vaccine (Menommune) 10/16/2012 PPD 01/04/2023 Pneumococcal Conjugate Vacci ne, 7 Valent 05/15/2001,03/19/2001,01/08/2001 [...] Encounters Date Type Specialty Care Team Description 01/11/2023 Nurse Only Ancillary Zeke, Nurse Claudy Gleason [address] [place] [address] 02/06/2023 Office Visit Gynecology Obstetrics Phyllis Huggins CRNP [address] [place] [address] Health Maintenance Due Date Last Done Comments [...] 10/16/2022 10/16/2012, 02/22/2006, 08/06/2002, Additional history exists Gonorrhea / Chlamydia Screen 11/09/2023 11/08/2022, 10/28/2021 Pap Smear 11/08/2025 11/08/2022 Hepatitis B Completed 11/18/2001, 02/28, 01/08/2001 MENINGOCOCCAL (MENACTRA/MENVEO) Aged Out 10/16/2012 No longer eligible based on patient's age to complete this topic Influenza Vaccine (FLU shot) Completed , 05/11/2022, 06/16/2021, Additional history exists Hepatitis C Screening Completed 11/08/2022 , 11/08/2022, 11/08/2022 documented as of this encounter Medical Devices Not on filedocumented as of this encounter Care Teams Primary Operator Relationship Specialty Start Date End Date Melba Cr MD [address] [place] [address] PCP - General Internal Medicine 12/09/21 documented as of this encounter
--- OUTSIDE RECORDS SUMMARY | 2023-06-23 13:39 | External Medical Summary ---
Author Name Unknown Address Unknown Organization K01:LABORATORY [facility] - [address] [place] [address] Laboratory Report Ordering Provider Test Date Status SHILA,RICO 03/28/2023 14:16:54 Final Observation Date Value Abnormality Reference (Units ) Status Ferritin 03/28/2023 14:16:54 8 Below low normal 13- 150 (ng/mL) Final Performing Location LABORATORY [facility] - [address] [place] [address]
--- OUTSIDE RECORDS SUMMARY | 2023-06-23 13:39 | External Medical Summary | Summary of Care ---
Author Name Unknown Organization [facility] Address [address] [place] [facility] [place] [address] Phone [phone] Care Team Providers Care User Support Analyst Name Role Phone Melba Cr MD Primary Care Provider Reason for Visit * Reason Comments Return Visit Encounter Details Date Type Department Care Team Description 03/08/2023 Office Visit Gynecology/Obstetrics [facility] [address] [place] [address] Sally Alvares CRNP [address] [place] [address] Encounter for supervision of normal first in second trimester*; Bipolar disease during in second trimester (HCC); Maternal asthma complicating ; History of tetanus, diphtheria, and acellular pertussis booster vaccination (Tdap) Allergies Active Allergy Reactions Severity Noted Date Comments Bee Venom High 01/20/2014 WASP and HONETS documented as of this encounter (statuses as of 03/08/2023) Medications Medication Sig Dispensed Refills Start Date [...] 0 Active Ondansetron HCl 8 MG Oral TabletIndications:Enco hamer for supervision of normal first in second trimester Take 1 Tablet by mouth every 8 hours as needed for Nausea. 30 Tablet 2 02/01/2023 Active documented as of this encounter (statuses as of 03/08/2023) Active Problems Problem Noted Date History of tetanus, diphther ia, and acellular pertussis booster vaccination (Tdap) 03/08/2023 Overview: Received around 22 weeks for [employer] Bipolar disease during 023 Maternal asthma complicating 0 12/06/2022 , normal first 11/08/2022 Mild intermittent asthma without complic ation 05/11/2022 Bipolar affective disorder, currently de pressed, moderate 10/28/2021 Estimated Date of Delivery Comme nts Yes 06/30/2023 Based on Ultraso und documented as of this encounter (statuses as of 03/08/2023) Immunizations Name Administration Dates Next Due COVID-19 [...] Sign Reading Time Taken Comments Blood Pressure 110/60 03/08/2023 10:11 AM EDT Pulse - - Temperature - - Respiratory Rate - - Oxygen Saturation - - Inhaled Oxygen Concentration - - Weight 82.1 kg (181 lb) 03/08/2023 10:11 AM EDT Height - - Body Mass Index 31.07 01/04/2023 1:36 PM EDT documented in this encounter Progress Notes * KARLENE Love - 03/08/2023 10:16 AM EDT 23w 5d Doing well. Baby moving. No cramping/bleeding/leaking. Received Tdap last week at [facility] school; recommended that she bring documentation to her next visit. Discussed labs for next appt in 4 weeks. KARLENE Travis documented in this encounter Nursing Notes * Aida Winkler LPN - 03/08/2023 10:11 AM EDT 23w5d Denies vaginal bleeding/rom + movement No new concerns documented in this encounter Plan of Treatment Upcoming Encounters Date Type Specialty Care Team Description 04/06/2023 Laboratory Laboratory Arsenio Alanis [address] [place] [address] 04/06/2023 Office Visit Gynecology Obstetrics Tiffanie Barrett PA-C [address] [place] [address] Scheduled Orders Name Type Priority Associated Diagnoses Orde r Schedule CBC WITH WBC DIFFERENTIAL AND ANEMIA REFLEX WORKUP Lab Routine Encounter for supervision of normal first in second trimester Expected: 03/22/2023 (Approximate), Expires: 03/08/2024 SYPHILIS ANTIBODY SCREEN WITH REFLEX TO RPR Lab Routine Encounter for supervision of normal first in second trimester Expected: 03/22/2023 (Approximate), Expires: 03/08/2024 50-G GESTATIONAL GLUCOSE, 1 HOUR Lab Routine Encounter for supervision of normal first in second trimester Expected: 03/22/2023 (Approximate), Expires: 03/08/2024 Health Maintenance Due Date Last Done Comments [...] diphtheria, and acellular pertussis booster vaccination (Tdap) documented in this encounter Care Teams User Support Analyst Relationship Specialty Start Date End Date Melba Cr MD [address] [place] [address] PCP - General Internal Medicine 12/09/21 documented as of this encounter
--- OUTSIDE RECORDS SUMMARY | 2023-06-23 13:39 | External Medical Summary ---
Author Name Unknown Address Unknown Organization K01:LABORATORY [facility] - [address] [place], [place] [address] [place] [address] Laboratory Report Ordering Provider Test Date Status PRIYA CMAIL 05/11/2023 15:13:36 Final Observation Date Value Abnormality Reference (Units ) Status WBC, Total 05/11/2023 15:13:36 10.77 4.00-10.8 0 (K/uL) Final RBC 05/11/2023 15:13:36 4.01 3.85-5.15 (M/uL) Final Hemoglobin 05/11/2023 15:13:36 10.5 Below low normal 12 .0-15.3 (g/dL) Final Anemia reflex testing trigge rs on a HGB < 12.0 for Females and HGB < 13.0 for Males in accordance with the WHO Anemia Guidelines
Anemia reflex testing triggers on a HGB < 12.0 for Females and HGB < 13.0 for Males in accordance with the WHO Anemia Guidelines HCT 05/11/2023 15:13:36 35.1 Below low normal 36. 0-45.2 (%) Final MCV 05/11/2023 15:13:36 87.5 81.5-97.5 (fL) Final MCH 05/11/2023 15:13:36 26.2 27.0-34.0 (pg) Final MCHC 05/11/2023 15:13:36 29.9 32.0-36.0 (g/dL) Final RDW 05/11/2023 15:13:36 13.4 11.5-15.5 (%) Final Platelets 05/11/2023 15:13:36 274 140-400 (K /uL) Final MPV 05/11/2023 15:13:36 10.8 6.6-11.1 ( fL) Final Nucleated erythrocytes/100 leukocytes [Ratio] in Blood by Automated count 05/11/2023 15:13:36 0 <=0 (/100 WBCs) Final Performing Location LABORATORY [facility] - [address] [facility] [address]
--- OUTSIDE RECORDS SUMMARY | 2023-06-23 13:39 | External Medical Summary | Summary of Care ---
Author Name Unknown Organization [facility] Address [address] [place] [address] Phone [phone] Care Team Providers Care Watch Repair Technician Name Role Phone Melba Cr MD Primary Care Provider Reason for Visit * Reason Comments Outpatient Testing Encounter Details Date Type Department Care Team Description 02/26/2023 Laboratory Laboratory, [facility] [address] [place] [id number] [facility] [address] [place] [address] Immunity status testing Allergies Active Allergy Reactions Severity Noted Date Comments Bee Venom High 01/20/2014 WASP and HONETS documented as of this encounter (statuses as of 02/26/2023) Medications Medication Sig Dispensed Refills Start Date [...] Active Ondansetron HCl 8 MG Oral TabletIndications:Enco unter for supervision of normal first in second trimester Take 1 Tablet by mouth every 8 hours as needed for Nausea. 30 Tablet 2 02/01/2023 Active documented as of this encounter (statuses as of 02/26/2023) Active Problems Problem Noted Date Bipolar disease during 023 Maternal asthma complicating 0 12/06/2022 , normal first 11/08/2022 Mild intermittent asthma without complic ation 05/11/2022 Bipolar affective disorder, currently de pressed, moderate 10/28/2021 Estimated Date of Delivery Comme nts Yes 06/30/2023 Based on Ultraso und documented as of this encounter (statuses as of 02/26/2023) Immunizations Name Administration Dates Next Due COVID-19 [...] Encounters Date Type Specialty Care Team Description 03/02/2023 Office Visit Gynecology Obstetrics Phyllis Huggins CRNP [address] [place] [phone] Pending Results Name Type Priority Associated Diagnoses Date /Time MUMPS IGG ANTIBODY Lab Routine Immunity status testing 02/26/2023 11:36 AM EDT RUBEOLA (MEASLES) IGG ANTIBODY Lab Routine Immunity status testing 02/26/2023 11:36 AM EDT VARICELLA-ZOSTER VIRUS ANTIBODY, IGG Lab Routine Immunity status testing 02/26/2023 11:36 AM EDT HEPATITIS B SURFACE ANTIBODY Lab Routine Immunity status testing 02/26/2023 11:36 AM EDT Health Maintenance Due Date Last Done [...] as of this encounter Visit Diagnoses Diagnosis Immunity status testing Antibody response examination documented in this encounter Care Teams Watch Repair Technician Relationship Specialty Start Date End Date Melba Cr MD [address] [place] [phone] PCP - General Internal Medicine 12/09/21 documented as of this encounter
--- OUTSIDE RECORDS SUMMARY | 2023-06-23 13:39 | External Medical Summary ---
Author Name Unknown Address Unknown Organization K01:LAB[facility]ATORY [facility] - [address] [place] [address] Laboratory Report Ordering Provider Test Date Status GRADY CM 05/11/2023 15:13:36 Final Observation Date Value Abnormality Reference (Units ) Status Iron 05/11/2023 15:13:36 29 Below low normal 33-151 (ug/dL) Final Iron-binding capacity 05/11/2023 15:13:36 534 Above high normal 250-425 (ug/dL) Final Transferrin Sat % 05/11/2023 15:13:36 5 Below low normal 15-55 (%) Final Performing Location LABORATORY [facility] - [address] [place] [address]
--- OUTSIDE RECORDS SUMMARY | 2023-06-23 13:39 | External Medical Summary ---
Author Name Unknown Address Unknown Organization K01:LABORATORY [facility] - [facility] [address] [address] Laboratory Report Ordering Provider Test Date Status GRADY CM 05/11/2023 15:13:36 Final Observation Date Value Abnormality Reference (Units ) Status Creatinine 05/11/2023 15:13:36 0.5 0.5-1.0 (mg/dL) Final Glomerular filtration rate/1.73 sq M.predicted [Volume Rate/Area] in Serum, Plasma or Blood by Creatinine-based formula (CKD-EPI) 05/11/2023 15:13:36 >90 >=60 (mL/min) Final eGFR is calculated based on the CKD-EPI 2020 equation Performing Location LABORATORY [facility] - [address] [address]
--- OUTSIDE RECORDS SUMMARY | 2023-06-23 13:39 | External Medical Summary | Summary of Care ---
Author Name Unknown Organization [facility] Address [address] [place] [address] Phone [phone] Care Team Providers Care Muck Hauler Name Role Phone Melba Cr MD Primary Care Provider Reason for Visit * Reason Comments Return Visit Encounter Details Date Type Department Care Team Description 05/11/2023 Office Visit Gynecology/Obstetrics [facility] [address] [place] [address] Phyllis Huggins CRNP [address] [place] [address] Encounter for supervision of normal first in [...] Sign Reading Time Taken Comments Blood Pressure 116/66 05/11/2023 2:49 PM EDT Pulse - - Temperature - - Respiratory Rate - - Oxygen Saturation - - Inhaled Oxygen Concentration - - Weight 91.1 kg (200 lb 12.8 oz) 05/11/2023 2:49 PM EDT Height 162.6 cm (5' 4") 05/11/2023 2:49 PM EDT Body Mass Index 34.47 05/11/2023 2:49 PM EDT documented in this encounter Progress Notes * KARLENE Navarro - 05/11/2023 3:07 PM EDT 32w6d C/o heartburn, reviewed meds safe in . No other concerns. Baby moving well. Some BH contractions, bleeding, or LOF, Taking meds as ordered. CBC today. KARLENE Navarro * Tiffany Templeton LPN - 05/11/2023 2:54 PM EDT 32w6d Pt denies any concerns, having cbc drawn today documented in this encounter Plan of Treatment Upcoming Encounters Date Type Specialty Care Team Description 05/23/2023 Office Visit Gynecology Obstetrics Sally Alvares CRNP [address] [place] [address] 05/30/2023 Office Visit Gynecology Obstetrics Sally Alvares CRNP [address] [place] [address] 06/06/2023 Office Visit Gynecology Obstetrics Honorio Hsu MD [address] [place] [address] 06/13/2023 Office Visit Gynecology Obstetrics Sally Alvares CRNP [address] [place] [address] 06/20/2023 Office Visit Gynecology Obstetrics Phyllis Huggins CRNP [address] [place] [address] 06/27/2023 Office Visit Gynecology Obstetrics Backer, SallyKARLENE Ware [address] [facility] [place] [address] Pending Results Name Type Priority Associated Diagnoses Date /Time CBC WITH WBC DIFFERENTIAL AND ANEMIA REFLEX WORKUP Lab Routine Antepartum anemia complicating 05/11/2023 3:13 PM EDT Scheduled Orders Name Type Priority Associated Diagnoses Orde r Schedule CBC WITH WBC DIFFERENTIAL AND ANEMIA REFLEX WORKUP Lab Routine Antepartum anemia complicating Expected: 05/11/2023 (Approximate), Expires: 05/11/2024 Health Maintenance Due Date Last Done Comments [...] antepartum documented in this encounter Care Teams Muck Hauler Relationship Specialty Start Date End Date Melba Cr MD [address] [place] [address] PCP - General Internal Medicine 12/09/21 documented as of this encounter
--- OUTSIDE RECORDS SUMMARY | 2023-06-23 13:39 | External Medical Summary | Summary of Care ---
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 PPD Skin Test 01/04/2023 Encounter Details Date Type Department Care Team Description 01/04/2023 Office Visit [facility] [place] [address] Melba Cr MD [address] [place] [address] Encounter for completion of form with patient*; Immunity status testing; Screening-pulmonary TB Allergies Active Allergy Reactions Severity Noted Date Comments Bee Venom High 01/20/2014 WASP and HONETS documented as of this encounter (statuses as of 01/04/2023) Medications Medication Sig Dispensed Refills Start Date [...] as of this encounter (statuses as of 01/04/2023) Active Problems Problem Noted Date Bipolar disease during 023 Maternal asthma complicating 0 12/06/2022 , normal first 11/08/2022 Mild intermittent asthma without complic ation 05/11/2022 Bipolar affective disorder, currently de pressed, moderate 10/28/2021 Estimated Date of Delivery Comme nts Yes 06/30/2023 Based on Ultraso und documented as of this encounter (statuses as of 01/04/2023) Immunizations Name Administration Dates Next Due COVID-19 [...] Date Smoking Tobacco: Never Smokeless Tobacco: Never Tobacco Cessation:Counseling Given: Not Answered Alcohol Use Standard Drinks/Week Comments Never 0 [...] Sign Reading Time Taken Comments Blood Pressure 102/64 01/04/2023 1:36 PM EDT Pulse 78 01/04/2023 1:36 PM EDT Temperature 37.1 C (98.8 F) 01/04/2023 1:36 PM ED T Respiratory Rate - - Oxygen Saturation 99% 01/04/2023 1:36 PM EDT Inhaled Oxygen Concentration - - Weight 78.5 kg (173 lb) 01/04/2023 1:36 PM EDT Height 162.6 cm (5' 4") 01/04/2023 1:36 PM EDT Body Mass Index 29.7 01/04/2023 1:36 PM EDT documented in this encounter Patient Instructions * Patient Instructions* Carmen Schofield, MED ASSIST - 01/04/2023 2:37 PM EDT PATIENT INSTRUCTIONS FOR TUBERCULOSIS TESTING Also known as: Purified Protein Derivative (PPD) Whether you have active TB disease or simply test positive for TB infection, you must see a healthcare professional for evaluation and treatment. Tuberculosis (TB) is a disease that spreads through the air. It can cause serious health problems. TB is on the rise. To protect your health, get tested. Who Should Be Tested? Anyone can be exposed to TB. However, certain people are at higher risk for exposure, especially healthcare professionals, the homeless, and people coming from countries with high TB rates. People whose bodies are less able to fight off infections, such as the elderly and people with HIV and AIDS, are also more likely to get TB. If youre at risk for exposure, get tested regularly. The TB Skin Test The TB skin test tells you if the tuberculosis bacteria are in your body. Your healthcare professional places a small amount of solution under the skin with a needle to see if a reaction occurs. Keepin mind that although many people are infected with TB, very few develop TB disease. Getting Your TB Test Results Within 2-3 days after the test, youll be asked to return to your healthcare professional. Be sure to keep this appointment. Your test results will be evaluated during this visit. In some cases, a second test may be done to confirm results. What Do the Test Results Mean? Negative results mean you likely dont have the TB bacteria in your body. Positive results mean that you may have been infected with the TB bacteria. This doesnt necessarily mean you have active TB disease. More tests, such as chest x-rays, are needed to find out if youhave TB disease. [id number] [place] [address]. All rights reserved. This information is not intended as a substitute for professional medical care. Always follow your healthcare professional's instructions. documented in this encounter Progress Notes * SIMA Lamb - 01/04/2023 2:37 PM EDT Pt here for PPD administration. Has patient ever had a positive PPD Screening Test? No Has patient ever had the BCG tuberculosis vaccine? No If the patient responds yes to any of the questions, they are NOT eligible for a PPD. DO NOT administer the PPD Screening Test and Notify the provider. Time Out Procedure Performed: Yes Patient Identified (Ask Name/Date of ): Yes Immunization(s) verified: Yes, Immunization Name: PPD, VIS Sheet(s) given: Yes Verified Side and Site: Yes Verified Shot(s) with Parent(s)/Patient: Yes PPD applied at 2:37 PM and patient tolerated well. Patient to return to clinic in 48 hours for PPD Reading. * Melba Cr MD - 01/04/2023 2:14 PM EDT Images from the original note were not included. 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 mood has been stable off medications. going well, excited and feeling positive. Sleeping well, no problems with exercise. Nicotine none, cannabis none, alcohol none. 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 It appears she Had negative hepatitis-B titers. Overdue with a dentist, has to call to make an appointment. No problems with eyes or ears. No lightheadedness or dizziness. No chest pain or shortness of breath. No belly pain, some constipation, hasbeen counseled to increase fluid intake. No urinary problems. No joint problems. No swelling in hands or feet. medication and allergy list reviewed Past medical hx and problem list reviewed Physical Exam Vitals: 01/04/23 1336 Temp: 37.1 C (98.8 F) Pulse: 78 SpO2: 99% BP: 102/64 BMI: 29.68 Physical Exam Vitals and nursing note reviewed. Constitutional: General: She is not in acute distress. Appearance: Normal appearance. She is not ill-appearing. HENT: Head: Normocephalic and atraumatic. Right Ear: Tympanic membrane, ear canal and external ear normal. There is no impacted cerumen. Left Ear: Tympanic membrane, ear canal and external ear normal. There is no impacted cerumen. Nose: Nose normal. Mouth/Throat: Mouth: Mucous membranes are moist. Pharynx: Oropharynx is clear. Eyes: General: No scleral icterus. Conjunctiva/sclera: Conjunctivae normal. Pupils: Pupils are equal, round, and reactive to light. Neck: Thyroid: No thyroid mass, thyromegaly or thyroid tenderness. Cardiovascular: Rate and Rhythm: Normal rate and regular rhythm. Heart sounds: No murmur heard. Pulmonary: Effort: Pulmonary effort is normal. Breath sounds: Normal breath sounds. Abdominal: General: Abdomen is flat. There is no distension. Palpations: Abdomen is soft. Tenderness: There is no abdominal tenderness. There is no guarding or rebound. Musculoskeletal: Right lower leg: No edema. Left lower leg: No edema. Lymphadenopathy: Cervical: No cervical adenopathy. Skin: General: Skin is warm and dry. Neurological: Mental Status: She is alert. Psychiatric: Mood and Affect: Mood normal. Behavior: Behavior normal. I have reviewed the following results: Hep B, hep C, HIV, rubella and CBC Assessment and Plan Encounter for completion of form with patient Will need to repeat hepatitis B vaccination. Will double check with Obstetrics which hepatitis-B vaccine we should use. Needs two step PPD. Discussed possibility of depression anxiety and mood swingsduring and after , encouraged telling us about this early. Immunity status testing - MUMPS IGG ANTIBODY; Future - RUBEOLA (MEASLES) IGG ANTIBODY; Future - VARICELLA-ZOSTER VIRUS ANTIBODY, IGG; Future - HEPATITIS B SURFACE ANTIBODY; Future Screening-pulmonary TB - PPD Wrap-Up Follow Up: Return in 2 days (on 01/06/2023) for Return in 2 days for PPD Reading on Nurse Schedule. | For: Return in 2 days for PPD Reading on Nurse Schedule | Check-out note: Return in 2 days for PPDReading on Nurse Schedule Time: I spent a total of 20-29 minutes (exact time 25 mins) on the date of service in preparation, delivery, and documentation of the care provided to Carlos Dawn excluding any time spent in the performance of separately billed services. documented in this encounter Plan of Treatment Upcoming Encounters Date Type Specialty Care Team Description 01/06/2023 Nurse Only Ancillary Wkeric/Gw, Nurse Claudy Prac [address] [place], [place] [address] [address] 02/06/2023 Office Visit Gynecology Obstetrics Phyllis Huggins CRNP [address] [place] [address] Scheduled Orders Name Type Priority Associated Diagnoses Orde r Schedule MUMPS IGG ANTIBODY Lab Routine Immunity status testing Expected: 01/04/2023 (Approximate), Expires: 01/04/2024 RUBEOLA (MEASLES) IGG ANTIBODY Lab Routine Immunity status testing Expected: 01/04/2023 (Approximate), Expires: 01/04/2024 VARICELLA-ZOSTER VIRUS ANTIBODY, IGG Lab Routine Immunity status testing Expected: 01/04/2023 (Approximate), Expires: 01/04/2024 HEPATITIS B SURFACE ANTIBODY Lab Routine Immunity status testing Expected: 01/04/2023 (Approximate), Expires: 01/04/2024 Health Maintenance Due Date Last Done Comments Pneumococcal Vaccine: Pediatrics (0 to 5 Years) and At-Risk Patients (6 to 64 Years) (1 - PCV) 2006 Depression Screening, Annual for Pts 12 and Over 2012 COVID-19 Vaccine (3 - Booster for Moderna series) 03/31/2021 02/03/2021, 01/06/2021 *SPIROMETRY ONCE [...] this encounter Visit Diagnoses Diagnosis Encounter for completion of form with patient- Primary Immunity status testing Antibody response examination Screening-pulmonary TB Screening examination for pulmonary tuberculosis documented in this encounter Care Teams Flooring Mechanic Relationship Specialty Start Date End Date Melba Cr MD [address] [place] [address] PCP - General Internal Medicine 12/09/21 documented as of this encounter
--- OUTSIDE RECORDS SUMMARY | 2023-06-23 13:39 | External Medical Summary | Summary of Care ---
Author Name Unknown Organization [facility] Address [address] [facility] [address] Phone [phone] Care Team Providers Care Department Store General Manager Name Role Phone Melba Cr MD Primary Care Provider Encounter Details Date Type Department Care Team Description 05/14/2023 Telephone Gynecology/Obstetrics [address] [place] [address] Phyllis Huggins CRNP [address] [place] [address] Allergies Active Allergy Reactions Severity Noted Date [...] iron supplement once a day. 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 never received her prescription for [...] Obstetrics Sally Alvares CRNP [address] [place] [address] 05/30/2023 Office Visit Gynecology Obstetrics Sally Alvares CRNP [address] [place] [address] 06/06/2023 Office Visit Gynecology Obstetrics Honorio Hsu MD [address] [place] [address] 06/13/2023 Office Visit Gynecology Obstetrics Sally Alvares CRNP [address] [place] [address] 06/20/2023 Office Visit Gynecology Obstetrics Phyllis Huggins CRNP [address] [place] [address] 06/27/2023 Office Visit Gynecology Obstetrics BackerSally CRNP [address] [place] [address] Health Maintenance Due Date Last Done Comments [...] filedocumented as of this encounter Care Teams Department Store General Manager Relationship Specialty Start Date End Date Melba Cr MD [address] [place] [address] PCP - General Internal Medicine 12/09/21 documented as of this encounter
--- OUTSIDE RECORDS SUMMARY | 2023-06-23 13:39 | External Medical Summary ---
Author Name Unknown Address Unknown Organization K01:[facility] [place] [address] [place] [address] Laboratory Report Ordering Provider Test Date Status BATOOL PEREZ 02/26/2023 11:36:13 Final Observation Date Value Abnormality Reference (Units) Status Hepatitis B virus surface Ab [Units/volume] in Serum or Plasma by Immunoassay 02/26/2023 11:36:13 215.0 (mIU/mL) Final Hepatitis B virus surface Ab [Presence] in Serum by Immunoassay 02/26/2023 11:36:13 Positive Final HEPATITIS B SURFACE ANTIBODY, INTERPRETATION 02/26/2023 11:36:13 Immune to Hepatitis B Virus Final POSITIVE: >=11.5 mIU/mL
INDETERMINATE: 8.5-<11.5 mIU/mL
NEGATIVE: <8.5 mIU/mL Performing Location [facility] [place] [address] [place] [address]
--- OUTSIDE RECORDS SUMMARY | 2023-06-23 13:39 | External Medical Summary | Summary of Care ---
Author Name Unknown Organization [facility] Address [address] [place] [address] Phone [phone] Care Team Providers Care Womens Volleyball Coach Name Role Phone Melba Cr MD Primary Care Provider Reason for Visit * Reason Comments Medication Administration Pt here for He p B 2 Encounter Details Date Type Department Care Team Description 02/15/2023 Nurse Only Ancillary [facility] [address] [place] [address] [facility], Nurse [facility] [address] [place] [address] Medication Administration (Pt here for Hep... Allergies Active Allergy Reactions Severity Noted Date Comments Bee Venom High 01/20/2014 WASP and HONETS documented as of this encounter (statuses as of 02/15/2023) Medications Medication Sig Dispensed Refills Start Date [...] as of this encounter (statuses as of 02/15/2023) Active Problems Problem Noted Date Bipolar disease during 023 Maternal asthma complicating 0 12/06/2022 , normal first 11/08/2022 Mild intermittent asthma without complic ation 05/11/2022 Bipolar affective disorder, currently de pressed, moderate 10/28/2021 Estimated Date of Delivery Comme nts Yes 06/30/2023 Based on Ultraso und documented as of this encounter (statuses as of 02/15/2023) Immunizations Name Administration Dates Next Due COVID-19 [...] on file documented as of this encounter Nursing Notes * Alexsandra Gutierres LPN - 02/15/2023 1:41 PM EDT The patient has been properly identified by confirmation of name and date of . Pre-Administration Time Out Procedure Performed: Yes Patient Identified (Ask Name/Date of ): Yes Does the patient have a fever greater than 101 degrees today? No Patient allergic to latex? No Has the patient ever fainted after receiving an injection? No VFC Stock: No Immunization(s) verified: Yes, Immunization Name: Hep B, VIS Sheet(s) given: Yes Verified Side and Site: Yes Verified Shot(s) with Parent(s)/Patient: Yes documented in this encounter Plan of Treatment Upcoming Encounters Date Type Specialty Care Team Description 03/02/2023 Office Visit Gynecology Obstetrics Phyllis Huggins CRNP [address] [address] Health Maintenance Due Date Last Done Comments [...] as of this encounter Visit Diagnoses Diagnosis Need for hepatitis B vaccination- Primary Need for prophylactic vaccination and inoculation against viral hepatitis documented in this encounter Care Teams Womens Volleyball Coach Relationship Specialty Start Date End Date Melba Cr MD [address] [address] PCP - General Internal Medicine 12/09/21 documented as of this encounter
--- OUTSIDE RECORDS SUMMARY | 2023-06-23 13:39 | External Medical Summary | Summary of Care ---
Author Name Unknown Organization [facility] Address [address] [address] Phone [phone] Care Team Providers Care Bank Reconciliator Name Role Phone Melba Cr MD Primary Care Provider Reason for Visit * Reason Onset Date Comments Test Results 04/12/2023 Encounter Details Date Type Department Care Team Description 04/12/2023 Telephone Gynecology/Obstetrics [facility] [address] [place] [address] BackSally yang CRNP [address] [place] [address] Test Results Allergies Active Allergy Reactions Severity Noted Date Comments Bee Venom High 01/20/2014 WASP and HONETS documented as of this encounter (statuses as of 04/13/2023) Medications Medication Sig Dispensed Refills Start Date [...] as of this encounter (statuses as of 04/13/2023) Active Problems Problem Noted Date Antepartum anemia [...] as of this encounter (statuses as of 04/13/2023) Immunizations Name Administration Dates Next Due COVID-19 [...] encounter Miscellaneous Notes * Telephone Encounter - Deann West LPN - 04/13/2023 9:09 AM EDT Patient aware. * Telephone Encounter - Deann West LPN - 04/13/2023 8:34 AM EDT left message for patient to call office * Telephone Encounter - KARLENE Love - 04/12/2023 10:00 AM EDT Plesae call pt with unread MyG: Your blood count shows anemia (low iron). This is common in , but important to treat for the health of you and your baby. I will send a prescription for an iron supplement for you to take twice a day, along with vitamin Land Law Examiner help it absorb. You will need to take this at least an hour separately from your vitamin and tea, coffee, and dairy products. Iron may increase constipation; make sure you are getting lots of water and fiber in your diet. Youcan use an over the counter stool softener, such as colace, 2-3 times a day. Foods that contain iron include dark leafy greens, lean meats, and iron- fortified cereals. Make sure to include these in your diet, along with the supplement. We will plan to recheck your lab levels in 4 weeks to make sure they are increasing. Your glucose test was normal - you do not have gestational diabetes. Please contact my office if you have any questions. KARLENE Travis documented in this encounter Plan of Treatment Upcoming Encounters Date Type Specialty Care Team Description 04/25/2023 Office Visit Gynecology Obstetrics Phyllis Huggins CRNP [address] [address] 05/09/2023 Office Visit Gynecology Obstetrics Sally Alvares CRNP [address] [address] 05/23/2023 Office Visit Gynecology Obstetrics Sally Alvares CRNP [address] [address] 05/30/2023 Office Visit Gynecology Obstetrics Sally Alvares CRNP [address] [address] 06/06/2023 Office Visit Gynecology Obstetrics Honorio Hsu MD [address] [place] [address] 06/13/2023 Office Visit Gynecology Obstetrics Backer, KARLENE Jain [address] [place] [address] 06/20/2023 Office Visit Gynecology Obstetrics McHsebastien, KARLENE Mena [address] [place] [address] 06/27/2023 Office Visit Gynecology Obstetrics Backer, KARLENE Jain [address] [place] [address] Health Maintenance Due Date Last Done Comments Pneumococcal Vaccine: Pediatrics (0 to 5 Years) and At-Risk Patients (6 to 64 Years) (1 - PCV) 2006 Depression Screening 2012 COVID-19 Vaccine (3 - Moderna series) [...] filedocumented as of this encounter Care Teams Bank Reconciliator Relationship Specialty Start Date End Date Melba Cr MD [address] [place] [address] PCP - General Internal Medicine 12/09/21 documented as of this encounter
--- OUTSIDE RECORDS SUMMARY | 2023-06-23 13:39 | External Medical Summary ---
Author Name Unknown Address Unknown Organization K01:[facility]ATORY [facility] [place] - [address] [place] [address] Laboratory Report Ordering Provider Test Date Status RICO FUCHS 03/28/2023 14:16:54 Final Observation Date Value Abnormality Reference (Units ) Status Retic, % (auto) 03/28/2023 14:16:54 2.09 Above high normal 0.80-1.90 (%) Final Reticulocytes, Absolute 03/28/2023 14:16:54 83.8 31.3-100.1 (K/uL) Final Reticulocyte HGB 03/28/2023 14:16:54 28.1 Below low normal 29.7-37.4 (pg) Final Performing Location [facility] - [address] [place] [address]
--- OUTSIDE RECORDS SUMMARY | 2023-06-23 13:39 | External Medical Summary ---
Author Name Unknown Address Unknown Organization K01:[facility] [place] [address] [place] [address] Laboratory Report Ordering Provider Test Date Status SHILA,RICO 03/28/2023 14:16:54 Final Observation Date Value Abnormality Reference (Units ) Status Treponema pallidum Ab [Presence] in Serum by Immunoassay 03/28/2023 14:16:54 Nonreactive Nonreactive Final No serologic evidence of syp hilis. No additional testing clinicially indicated at this time. Consider repeat testing in 2-4 weeks if acute or primary syphilis is suspected. Performing Location [facility] [place] [address] [place] [address]
--- OUTSIDE RECORDS SUMMARY | 2023-06-23 13:39 | External Medical Summary ---
Author Name Unknown Address Unknown Organization K01:LABORATORY [facility] [place] - [address] [place] [address] Laboratory Report Ordering Provider Test Date Status SHILABACKER 03/28/2023 14:16:54 Final Observation Date Value Abnormality Reference (Units ) Status SYNC LEUKOCYTES IN BLOOD BY AUTOMATED COUNT 03/28/2023 14:16:54 10.05 4.00-10.80 (K/uL) Final Segs 03/28/2023 14:16:54 74.2 40.0-75.0 (%) Final Lymphs % 03/28/2023 14:16:54 19.6 18.0-42.0 (%) Final Monos 03/28/2023 14:16:54 4.4 1.0-11.0 (%) Final Eosinophils 03/28/2023 14:16:54 1.1 0.0-6.0 (%) Final Basos 03/28/2023 14:16:54 0.3 0.0-2.0 (%) Final Immature Granulocyte, Percent 03/28/2023 14:16:54 0.4 0.0-2.0 (%) Final Absolute Segs 03/28/2023 14:16:54 7.46 1.80-7.70 (K/uL) Final Lymphs, absolute 03/28/2023 14:16:54 1.97 1.00-4.80 (K/ul) Final Monos, Abs 03/28/2023 14:16:54 0.44 0.00-1.10 (K/uL) Final Eos, Abs 03/28/2023 14:16:54 0.11 0.00-0.70 (K/uL) Final Basos, Abs 03/28/2023 14:16:54 0.03 0.00-0.20 (K/uL) Final Immature Granulocytes, Number 03/28/2023 14:16:54 0.04 0.00-0.20 (K/uL) Final Performing Location LABORATORY [facility] [place] - [address] [facility] [address]
--- OUTSIDE RECORDS SUMMARY | 2023-06-23 13:39 | External Medical Summary ---
Author Name Unknown Address Unknown Organization K01:[facility] - [address] [place] [address] Laboratory Report Ordering Provider Test Date Status BATOOL PEREZ 02/26/2023 11:36:13 Final Observation Date Value Abnormality Reference (Units ) Status Rubeola IgG 02/26/2023 11:36:13 Positive Abnormal Negative Final A positive result is consist ent with having had measles virus (rubeola) or vaccination. Performing Location [facility] - [address] [place] [address]
--- OUTSIDE RECORDS SUMMARY | 2023-06-23 13:39 | External Medical Summary | Summary of Care ---
Author Name Unknown Organization [facility] Address [address] [place] [address] Phone [phone] Care Team Providers Care Financial Planning Adviser Name Role Phone Melba Cr MD Primary Care Provider Reason for Visit * Reason Comments Medication Administration Pt here for He p B 2 Encounter Details Date Type Department Care Team Description 02/15/2023 Nurse Only Ancillary [facility] [address] [place] [address] [facility], Nurse [facility] [address] [place] [address] Medication Administration (Pt here for Hep... Allergies [...] Obstetrics Phyllis Huggins CRNP [address] [address] Health Maintenance Due Date Last Done Comments [...] hepatitis documented in this encounter Care Teams Financial Planning Adviser Relationship Specialty Start Date End Date Melba Cr MD [address] [address] PCP - General Internal Medicine 12/09/21 documented as of this encounter
--- OUTSIDE RECORDS SUMMARY | 2023-06-23 13:39 | External Medical Summary ---
Author Name Unknown Address Unknown Organization K01:LABORATORY [facility] [place] - [address] [place] [address] Laboratory Report Ordering Provider Test Date Status BATOOL PEREZ 02/26/2023 11:36:13 Final Observation Date Value Abnormality Reference (Units ) Status Mumps virus IgG Ab [Presence] in Serum by Immunoassay 02/26/2023 11:36:13 Positive Abnormal Negative Final A positive result is consist ent with having had mumps virus or vaccination. Performing Location LABORATORY [facility] - [address] [place] [address]
--- OUTSIDE RECORDS SUMMARY | 2023-06-23 13:39 | External Medical Summary ---
Author Name Unknown Address Unknown Organization K01:[facility] [place] [address] [place], [place] [address] [address] Laboratory Report Ordering Provider Test Date Status SHILABACKER 03/28/2023 14:16:54 Final Observation Date Value Abnormality Reference (Units ) Status WBC, Total 03/28/2023 14:16:54 10.05 4.00-10.8 0 (K/uL) Final RBC 03/28/2023 14:16:54 4.04 3.85-5.15 (M/uL) Final Hemoglobin 03/28/2023 14:16:54 11.0 Below low normal 12 .0-15.3 (g/dL) Final Anemia reflex testing trigge rs on a HGB < 12.0 for Females and HGB < 13.0 for Males in accordance with the WHO Anemia Guidelines
Anemia reflex testing triggers on a HGB < 12.0 for Females and HGB < 13.0 for Males in accordance with the WHO Anemia Guidelines HCT 03/28/2023 14:16:54 36.1 36.0-45.2 (%) Final MCV 03/28/2023 14:16:54 89.4 81.5-97.5 (fL) Final MCH 03/28/2023 14:16:54 27.2 27.0-34.0 (pg) Final MCHC 03/28/2023 14:16:54 30.5 32.0-36.0 (g/dL) Final RDW 03/28/2023 14:16:54 13.6 11.5-15.5 (%) Final Platelets 03/28/2023 14:16:54 276 140-400 (K /uL) Final MPV 03/28/2023 14:16:54 10.4 6.6-11.1 ( fL) Final Nucleated erythrocytes/100 leukocytes [Ratio] in Blood by Automated count 03/28/2023 14:16:54 0 <=0 (/100 WBCs) Fi community health Performing Location [facility] [place] [address] [facility] [address]
--- OUTSIDE RECORDS SUMMARY | 2023-06-23 13:39 | External Medical Summary ---
Author Name Unknown Address Unknown Organization K01:[facility] [place] [facility] [address] [place] [address] Laboratory Report Ordering Provider Test Date Status SHILABACKER 03/28/2023 14:16:54 Final Observation Date Value Abnormality Reference (Units ) Status Creatinine 03/28/2023 14:16:54 0.5 0.5-1.0 (mg/dL) Final Glomerular filtration rate/1.73 sq M.predicted [Volume Rate/Area] in Serum, Plasma or Blood by Creatinine-based formula (CKD-EPI) 03/28/2023 14:16:54 >90 >=60 (mL/min) Final eGFR is calculated based on the CKD-EPI 2020 equation Performing Location [facility] [place] - [facility] [address] [place] [address]
--- OUTSIDE RECORDS SUMMARY | 2023-06-23 13:39 | External Medical Summary | Summary of Care ---
Author Name Unknown Organization [facility] Address [address] [place] [address] Phone [phone] Care Team Providers Care Waste Reduction Coordinator Name Role Phone Melba Cr MD Primary Care Provider Reason for Visit * Reason Onset Date Comments PPD Skin Test 01/11/2023 Encounter Details Date Type Department Care Team Description 01/11/2023 Nurse Only Ancillary [facility] [address] [place] [address] [facility], Nurse [facility] [address] [place] [address] PPD Skin Test Allergies Active Allergy Reactions Severity Noted Date Comments Bee Venom High 01/20/2014 WASP and HONETS documented as of this encounter (statuses as of 01/11/2023) Medications Medication Sig Dispensed Refills Start Date [...] as of this encounter (statuses as of 01/11/2023) Active Problems Problem Noted Date Bipolar disease during 023 Maternal asthma complicating 0 12/06/2022 , normal first 11/08/2022 Mild intermittent asthma without complic ation 05/11/2022 Bipolar affective disorder, currently de pressed, moderate 10/28/2021 Estimated Date of Delivery Comme nts Yes 06/30/2023 Based on Ultraso und documented as of this encounter (statuses as of 01/11/2023) Immunizations Name Administration Dates Next Due COVID-19 [...] on file documented as of this encounter Patient Instructions * Patient Instructions* Debby Gallo LPN - 01/11/2023 4:37 PM EDT PATIENT INSTRUCTIONS FOR TUBERCULOSIS TESTING [...] to find out if youhave TB disease. [id number] [facility], [address] [place] [address], [place] [address]. All rights reserved. This information is not intended as a substitute for professional medical care. Always follow your healthcare professional's instructions. documented in this encounter Progress Notes * Debby Gallo LPN - 01/11/2023 4:36 PM EDT Pt here for PPD administration. Has patient ever had a positive PPD Screening Test? No Has patient ever had the BCG tuberculosis vaccine? Unsure If the patient responds yes to any of the questions, they are NOT eligible for a PPD. DO NOT administer the PPD Screening Test and Notify the provider. Time Out Procedure Performed: Yes Patient Identified (Ask Name/Date of ): Yes Injection(s) verified: Yes, Injection Name: PPD Verified Side and Site: Yes Verified Shot(s) with Parent(s)/Patient: Yes PPD applied at 4:36 PM and patient tolerated well. Patient to return to clinic in 48 hours for PPD Reading. documented in this encounter Plan of Treatment Upcoming Encounters Date Type Specialty Care Team Description 01/13/2023 Nurse Only Ancillary [facility], Nurse Claudy Prac [address] [place] [address] 01/23/2023 Office Visit Gynecology Obstetrics Backer, BRETT JainNP [address] [place] [address] Health Maintenance Due Date Last Done Comments [...] as of this encounter Visit Diagnoses Diagnosis Screening-pulmonary TB- Primary Screening examination for pulmonary tuberculosis documented in this encounter Care Teams Waste Reduction Coordinator Relationship Specialty Start Date End Date Melba Cr MD [address] [place] [address] PCP - General Internal Medicine 12/09/21 documented as of this encounter
--- OUTSIDE RECORDS SUMMARY | 2023-06-23 13:39 | External Medical Summary | Summary of Care ---
Author Name Unknown Organization [facility] Address [address] [facility] [place] [address] Phone [phone] Care Team Providers Care Senior Courtroom Clerk Name Role Phone Melba Cr MD Primary Care Provider Reason for Visit * Reason Comments Return Visit Encounter Details Date Type Department Care Team Description 03/28/2023 Office Visit Gynecology/Obstetrics [facility] [address] [place] [address] Sally Alvares CRNP [address] [place] [address] Encounter for supervision of normal first in [...] needed for Nausea. 30 Tablet 2 02/01/2023 03/28/2023 Discontinued (Medication List Clean Up) documented as of this encounter (statuses as [...] Sign Reading Time Taken Comments Blood Pressure 118/68 03/28/2023 1:26 PM EDT Pulse - - Temperature - - Respiratory Rate - - Oxygen Saturation - - Inhaled Oxygen Concentration - - Weight 87 kg (191 lb 12.8 oz) 03/28/2023 1:26 PM EDT Height - - Body Mass Index 32.92 01/04/2023 1:36 PM EDT documented in this encounter Progress Notes * KARLENE Love - 03/28/2023 1:26 PM EDT 26w 4d Had post-coital bleeding a few weeks ago, went to ER through [facility] - normal imaging. No further bleeding. Baby is moving normally. Denies cramping. Reviewed movement counts to start around 28-30 weeks. Completing labs today. Discussed EPDS - pt feels more anxious with advancing and college. Declines referral to psych at this time, but aware this is an option if desired. Given information on childbirth and classes. Recommended that she call her insurance company for information on obtaining a breast pump. 2 week return. KARLENE Travis [place] Depression Screen 11/08/2022 11:07 03/28/2023 13:31 [place] Depression Screening I have been able to laugh and see the funny side of things. As much as I always could [0] As much as I always could [0] I have looked forward with enjoyment to things. As much as I ever did [0] As much as I ever did [0] I have blamed myself unnecessarily when things went wrong. Yes, some of the time [2] Yes, some of the time [2] I have been anxious or worried for no good reason. No, not at all [0] Yes, very often [3] I have felt scared or panicky for no good reason. Yes, sometimes [2] Yes, sometimes [2] Things have been getting on top of me. No, most of the time I have coped quite well [1] No, most ofthe time I have coped quite well [1] I have been so unhappy that I have had difficulty sleeping. Not at all [0] Yes, most of the time [3] I have felt sad or miserable. No, not at all [0] No, not at all [0] I have been so unhappy that I have been crying. Only occasionally [1] No, never [0] The thought of harming myself has occurred to me. Never [0] Never [0] [place] Depression Scale Total 6 11 * Aida Winkler LPN - 03/28/2023 1:25 PM EDT 26w4d Denies vaginal bleeding/rom + movement Had episode of bleeding with intercourse- nothing since. documented in this encounter Plan of Treatment Upcoming Encounters Date Type Specialty Care Team Description 04/25/2023 Office Visit Gynecology Obstetrics Phyllis Huggins CRNP [address] [place] [address] 05/09/2023 Office Visit Gynecology Obstetrics BackerSally CRNP [address] [place] [address] 05/23/2023 Office Visit Gynecology Obstetrics BackerSally CRNP [address] [place] [address] 05/30/2023 Office Visit Gynecology Obstetrics BackerSally CRNP [address] [place] [address] 06/06/2023 Office Visit Gynecology Obstetrics Honorio Hsu MD [address] [place] [address] 06/13/2023 Office Visit Gynecology Obstetrics BackerSally CRNP [address] [place] [address] 06/20/2023 Office Visit Gynecology Obstetrics Phyllis Huggins CRNP [address] [place] [address] 06/27/2023 Office Visit Gynecology Obstetrics BackerSally CRNP [address] [place] [address] Health Maintenance Due Date Last Done Comments [...] (Tdap) documented in this encounter Care Teams Senior Courtroom Clerk Relationship Specialty Start Date End Date Melba Cr MD [address] [place] [address] PCP - General Internal Medicine 12/09/21 documented as of this encounter
--- OUTSIDE RECORDS SUMMARY | 2023-06-23 13:39 | External Medical Summary | Summary of Care ---
Author Name Unknown Organization [facility] Address [address] [place] [address] Phone [phone] Care Team Providers Care Campus Administrative Assistant Name Role Phone Melba Cr MD Primary Care Provider Reason for Visit * Reason Comments Return Visit Encounter Details Date Type Department Care Team Description 04/10/2023 Office Visit Gynecology/Obstetrics [facility] [address] [place] [address] Phyllis Huggins CRNP [address] [place] [id number] Encounter for supervision of normal first in third trimester*; Bipolar disease during , antepartum (HCC); Maternal asthma complicating ; History of tetanus, diphtheria, and acellular pertussis booster vaccination (Tdap); Antepartum anemia complicating Allergies Active Allergy Reactions Severity Noted Date Comments Bee Venom High 01/20/2014 WASP and HONETS documented as of this encounter (statuses as of 04/10/2023) Medications Medication Sig Dispensed Refills Start Date [...] as of this encounter (statuses as of 04/10/2023) Active Problems Problem Noted Date Antepartum anemia [...] as of this encounter (statuses as of 04/10/2023) Immunizations Name Administration Dates Next Due COVID-19 [...] Reading Time Taken Comments Blood Pressure 110/60 04/10/2023 9:13 AM EDT Pulse - - Temperature - - Respiratory Rate - - Oxygen Saturation - - Inhaled Oxygen Concentration - - Weight 87.8 kg (193 lb 9.6 oz) 04/10/2023 9:13 A M EDT Height 162.6 cm (5' 4") 04/10/2023 9:13 AM EDT Body Mass Index 33.23 04/10/2023 9:13 AM EDT documented in this encounter Progress Notes * KARLENE Navarro - 04/10/2023 9:35 AM EDT 28w3d Discussed FM, baby moving less than it used to but still getting 10 movements in 2 hours. Advised to continue to track, call if less than 10 in 2 hours. Reassured that quality and quantity of movements often change throughout . No bleeding, no contractions or LOF. Completed glucola at last visit, has gotten TDAP. KARLENE Navarro * Tiffany Templeton LPN - 04/10/2023 9:25 AM EDT 28w3d Pt denies any concerns. Had tdap about a month ago elsewhere. documented in this encounter Plan of Treatment Upcoming Encounters Date Type Specialty Care Team Description 04/25/2023 Office Visit Gynecology Obstetrics Phyllis Huggins CRNP [address] [place] [address] 05/09/2023 Office Visit Gynecology Obstetrics Backer, KARLENE Jain [address] [place] [address] 05/23/2023 Office Visit Gynecology Obstetrics Backer, KARLENE Jain [address] [place] [address] 05/30/2023 Office Visit Gynecology Obstetrics Backer, KARLENE Jain [address] [place] [address] 06/06/2023 Office Visit Gynecology Obstetrics Honorio Hsu MD [address] [place] [address] 06/13/2023 Office Visit Gynecology Obstetrics Backer, KARLENE Jain [address] [place] [address] 06/20/2023 Office Visit Gynecology Obstetrics McHail, KARLENE Mena [address] [place] [address] 06/27/2023 Office Visit Gynecology Obstetrics Backer, KARLENE Jain [address] [place] [address] Health Maintenance Due Date Last Done Comments [...] antepartum documented in this encounter Care Teams Campus Administrative Assistant Relationship Specialty Start Date End Date Melba Cr MD [address] [place] [address] PCP - General Internal Medicine 12/09/21 documented as of this encounter
--- OUTSIDE RECORDS SUMMARY | 2023-06-23 13:39 | External Medical Summary ---
Author Name Unknown Address Unknown Organization [facility] [address] [place] [id number] Laboratory Report Ordering Provider Test Date Status GRADY CM 05/11/2023 15:13:36 Final Observation Date Value Abnormality Reference (Units ) Status Ferritin 05/11/2023 15:13:36 8 Below low normal 13- 150 (ng/mL) Final Performing Location [facility] [address] [place] [address]
--- OUTSIDE RECORDS SUMMARY | 2023-06-23 13:39 | External Medical Summary ---
Author Name Unknown Address Unknown Organization [facility] [address] [place] [address] Laboratory Report Ordering Provider Test Date Status BATOOL PEREZ 02/26/2023 11:36:13 Final Observation Date Value Abnormality Reference (Units ) Status Varicella Zoster IgG interpretation 02/26/2023 11:36:13 Positive Abnormal Negative Final A positive result is consist ent with having had varicella zoster virus or vaccination. Performing Location [facility] [address] [place] [address]
--- OUTSIDE RECORDS SUMMARY | 2023-06-23 13:40 | External Medical Summary | Summary of Care ---
Author Name Unknown Organization [facility] Address [address] [place] [address] Phone [phone] Care Team Providers Care Manager Intensive Care Unit Name Role Phone Melba Cr MD Primary Care Provider Reason for Visit * Reason Comments Return Visit Encounter Details Date Type Department Care Team Description 01/02/2023 Office Visit Gynecology/Obstetrics [facility] [address] [place] [address] Phyllis Huggins CRNP [address] [place] [id number] Encounter for supervision of normal first in second trimester*; Bipolar disease during in second trimester (HCC); Maternal asthma complicating Allergies Active Allergy Reactions Severity Noted Date Comments Bee Venom High 01/20/2014 WASP and HONETS documented as of this encounter (statuses as of 01/02/2023) Medications Medication Sig Dispensed Refills Start Date [...] as of this encounter (statuses as of 01/02/2023) Active Problems Problem Noted Date Bipolar disease during 023 Maternal asthma complicating 0 12/06/2022 , normal first 11/08/2022 Mild intermittent asthma without complic ation 05/11/2022 Bipolar affective disorder, currently de pressed, moderate 10/28/2021 Estimated Date of Delivery Comme nts Yes 06/30/2023 Based on Ultraso und documented as of this encounter (statuses as of 01/02/2023) Immunizations Name Administration Dates Next Due COVID-19 mRNA, LNP-s, No Pre serve, 2-Dose Series (Moderna) 02/03/2021,01/06/2021 DTaP - Dipth/Tet/Acell Pertussis 006,08/06/2002,05/15/2001,03/19,01/08/2001 HPV Vaccine, 9-Valent 05/11/2022,12/09/2021 Haemophilus B (HIB) 11/18/2001,03/19/2001,2000 Hepatitis A Vaccine 03/18/2009,12/11/2007 Hepatitis B Vaccine 11/18/2001,03/19/2001,2000 IPV - Polio Virus Vaccine (Inact) 2013,08/06/2002,05/15/2001,03/19,01/08/2001 MMR - Measles/Mumps/Rubella Vaccine 02/22/2006,0 08/06/2002 Meningococcal Polysaccharide Vaccine (Menommune) 10/16/2012 Pneumococcal Conjugate Vacci ne, 7 Valent 05/15/2001,03/19/2001,01/08/2001 [...] Sign Reading Time Taken Comments Blood Pressure 106/60 01/02/2023 1:48 PM EDT Pulse - - Temperature - - Respiratory Rate - - Oxygen Saturation - - Inhaled Oxygen Concentration - - Weight 80.7 kg (178 lb) 01/02/2023 1:48 PM EDT Height 162.6 cm (5' 4") 01/02/2023 1:48 PM EDT Body Mass Index 30.55 01/02/2023 1:48 PM EDT documented in this encounter Progress Notes * KARLENE Navarro - 01/02/2023 2:06 PM EDT 14w3d Still with n/v and headaches. Taking zofran as needed. No other concerns. Declines NIPT. KARLENE Navarro documented in this encounter Nursing Notes * YEVGENIY Gao - 01/02/2023 1:53 PM EDT 14w3d Pt has been having more n/v/VAUGHN, denies any other concerns. documented in this encounter Plan of Treatment Upcoming Encounters Date Type Specialty Care Team Description 01/04/2023 Office Visit Family Medicine Melba Cr MD [address] [place] [id number] Health Maintenance Due Date Last Done Comments [...] care documented in this encounter Care Teams Manager Intensive Care Unit Relationship Specialty Start Date End Date Melba Cr MD [address] [facility] [place] [address] PCP - General Internal Medicine 12/09/21 documented as of this encounter
[2023-06-23] MEDS ORDERED: LIDOCAINE 1% LOCAL 20 ML VIAL INFIL PRN (14:06)
[2023-06-23] MEDS ORDERED: OXYTOCIN 30 UNITS/NSS 30 UNITS/500 ML BAG IV PRN ×3 (14:06→23:16)
--- NOTE | 2023-06-23 14:10 | History & Physical Report ---
Date of Service June 23, 2023 History of Present Illness Chief Complaint: onset of labor Primary Care Provider: [facility] 22 F P0000 at 39 weeks admitted in early labor. GBS is negative. Allergies Allergy/AdvReac Type Severity Reaction Status Date / Time No Known Allergies Allergy Unverified 11/13/20 19:05 Home Medications Medication Instructions Recorded Confirmed Type amoxicillin 500 mg capsule 500 mg PO TID 11/13/20 11/13/20 History hydroxyzine pamoate 25 mg capsule 25 mg PO TID PRN anxiety #30 caps 11/13/20 Rx (Vistaril) Patient History Medical History Weight loss Adenopathy, cervical Dysphagia Social History Smoking Status: Never smoker Hx Alcohol Use: No Hx Substance Use: No Beliefs That Will Affect Care: None marital status: Single Current Living Situation: Significant Other Other Information That Helps Us Care for You: No Feels Safe at Home: Yes Safety Concerns: Feels Safe At This Time Assistive Devices: None 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 Review of Systems All systems reviewed & are unremarkable except as noted in HPI & below Physical Exam Constitutional: WD/WN, vitals as above Eyes: PERRL, conjunctivae normal, anicteric sclerae Respiratory: normal respiratory effort, lungs clear to auscultation Cardiovascular: Rate/Rhythm: regular rate and regular rhythm Gastrointestinal (Abdomen): Inspection/Auscultation: abdomen normal to inspection Musculoskeletal: Extremities: extremities normal to inspection Skin: no rashes, warm and dry Neurologic: patellar DTR's 2+ bilat, sensation intact Psychiatric: A+Ox3, euthymic affect Genitourinary: Manual OB Exam: + cervical dilation 3 cm, + cervical effacement 90% and + station -1 OB Exam Monitor Tracing: + external FHT monitor used, + external uterine monitor used, + category I and + normal FHT variability EFW 7.5 lbs. Results & Data Vital Signs (Past 12 Hours) Vital Signs Temp Pulse Resp BP 06/23/23 13:47 36.8 C 20 06/23/23 13:42 76 117/66 Code Status & VTE Plan VTE Prophylaxis Plan VTE Prophylaxis will be ordered: No Monitoring External Monitor Cat 1
[2023-06-23] MEDS: LACTATED RINGER'S 1,000 ML IV PRN ×2 (14:17→17:06)
[2023-06-23 14:26] LABS: Hematocrit (blood only) 38.4 % (37.0-47.0); Hemoglobin 12.2 g/dl (12.0-16.0); Mean Corpuscular Hemoglobin 26.6 pg (25.0-34.0); Mean Corpuscular Hgb Conc 31.8 g/dL (32.0-36.0); Mean Corpuscular Volume 83.8 fL (80.0-100.0); Mean Platelet Volume 10.6 fL (9.4-12.4); Platelet Count 220 K/uL (130-400); RDW Coefficient of Variation 17.2 % (11.5-14.5); RDW Standard Deviation 52.5 fL (36.4-46.3); Red Blood Count 4.58 M/uL (4.20-5.40); White Blood Count 12.77 K/ul (4.8-10.8)
--- NOTE | 2023-06-23 14:45 | Anesthesiology Consultation ---
Date of Service June 23, 2023 Assessment & Plan Chart Review Chart Review: Acceptable Risk for Surgery, Patient NOT seen in Pre Admission Testing and Acceptable Risk for Labor Epidural Consults Requested none ASA ASA2 Proposed Anesthesia Anesthesia Type: Labor Epidural and CSE History Height/Weight Height: 5 ft 4 in Weight: 94.347 kg Allergies Allergy/AdvReac Type Severity Reaction Status Date / Time No Known Allergies Allergy Unverified 06/23/23 14:33 Medications Active Medications Generic Name Dose Route Start Last Admin Trade Name Freq PRN Reason Stop Dose Admin Lactated Ringer's 1,000 mls @ 125 mls/hr 06/23/23 14:00 06/23/23 14:17 Lr IV 06/25/23 13:59 999 mls/hr .Q8H PRN Administration L&D Protocol Protocol Past Medical History Medical History Weight loss Adenopathy, cervical Dysphagia obese Gerd Exercise / Class Metabolic Activity II 4-5 Yardwork/Stairs/Walk up hill Past Anesthesia History No Hx of Anesthesia Complications and No Family Hx of Anesthesia Complications History of PONV No Hx of PONV and No Hx of Motion Sickness Social History Smoking Status: Never smoker Hx Alcohol Use: No Hx Substance Use: No Physical Exam Vital Signs Last Vital Signs Temp 36.8 C 06/23/23 13:47 Pulse 76 06/23/23 13:42 Resp 20 06/23/23 13:47 BP 117/66 06/23/23 13:42 Testing Laboratory Results 06/23/23 14:12
[2023-06-23] MEDS ORDERED: fentaNYL citrate PF 100 MCG/2 ML VIAL ONE (16:37)
[2023-06-23] MEDS ORDERED: ePHEDrine sulfate 50 MG/ML AMP ONE (16:37)
[2023-06-23] MEDS ORDERED: BUPIVACAINE 0.25% PF 30 ML VIAL ONE (16:38)
[2023-06-23] MEDS ORDERED: fentANYL 2 MCG/ML BUPIVacaine 0.125%-NSS 100ML BAG ONE (16:38)
[2023-06-23] MEDS ORDERED: LIDOCAINE 2%/EPINEPHRINE 1:200,000 20 ML PF ONE (16:38)
[2023-06-23] MEDS ORDERED: SODIUM CHLORIDE 0.9% PF INJ 10 ML VIAL ONE (16:38)
[2023-06-23] MEDS ORDERED: NALBUPHINE HCL 5 MG in SYRINGE 0 ML IV PRN (17:23)
[2023-06-23] MEDS ORDERED: NALOXONE HCL 0.4 MG/1 ML VIAL/CARP IV PRN (17:23)
[2023-06-23] MEDS ORDERED: SODIUM CHLORIDE 0.9% PF INJ 10 ML VIAL EPI PRN (17:23)
[2023-06-23] MEDS ORDERED: ePHEDrine sulfate 50 MG/ML AMP IV PRN (17:23)
[2023-06-23] MEDS ORDERED: fentaNYL citrate PF 100 MCG/2 ML VIAL EPI PRN (17:23)
[2023-06-23] MEDS ORDERED: ROPIVACAINE 0.5% PF 5 MG/ML 20 ML VIAL EPI PRN (17:23)
[2023-06-23] MEDS ORDERED: NALOXONE HCL 1 MG in SODIUM CHLORIDE 0.9% 1,000 ML IV PRN (17:23)
[2023-06-23] MEDS ORDERED: fentANYL 2 MCG/ML BUPIVacaine 0.125%-NSS 100ML BAG EPI PRN (17:23)
[2023-06-23] MEDS ORDERED: PROMETHAZINE HCL 25 MG in SODIUM CHLORIDE 0.9% 50 ML IV PRN (17:23)
[2023-06-23] MEDS ORDERED: BUPIVACAINE 0.25% PF 30 ML VIAL EPI STA (17:23)
[2023-06-23] MEDS ORDERED: LIDOCAINE 2% MPF LOCAL 5 ML VIAL EPI PRN (17:23)
[2023-06-23] MEDS ORDERED: LIDOCAINE 2%/EPINEPHRINE 1:200,000 20 ML PF EPI STA (17:23)
[2023-06-23] MEDS ORDERED: diphenhydrAMINE 50 MG/ML VIAL IV PRN (17:23)
[2023-06-23] MEDS ORDERED: BUPIVACAINE 0.25% PF 30 ML VIAL EPI PRN (17:23)
[2023-06-23] MEDS ORDERED: SODIUM CHLORIDE 0.9% PF INJ 10 ML VIAL EPI STA (17:23)
[2023-06-23] MEDS ORDERED: fentaNYL citrate PF 100 MCG/2 ML VIAL EPI STA (17:23)
[2023-06-23] MEDS ORDERED: ONDANSETRON INJ 2 MG/ML 2 ML VIAL IV PRN (17:23)
--- NOTE | 2023-06-23 17:47 | Labor Progress Brief Note ---
Date of Service June 23, 2023 Assessment & Plan Admission and Anticipated Discharge Date Admission Date: June 23, 2023 Physical Exam Genitourinary: Manual OB Exam: + cervical dilation 4 cm and 5 cm, + cervical effacement 90%, + station -2 and + amniotic fluid meconium OB Exam Monitor Tracing: + external FHT monitor used, + external uterine monitor used, + category I and + normal FHT variability AROM with Amni-hook meconium fluid Results & Data Vital Signs (Past 12 Hours) Vital Signs Temp Pulse Resp BP Pulse Ox 06/23/23 17:42 82 L 06/23/23 17:42 95 H 06/23/23 17:42 85 94 06/23/23 17:38 75 111/58 L 06/23/23 17:37 64 97 06/23/23 17:35 67 111/54 L 06/23/23 17:34 64 116/57 L 06/23/23 17:32 68 96 06/23/23 17:28 65 103/55 L 06/23/23 17:27 67 100 06/23/23 17:26 80 116/56 L 06/23/23 17:25 76 89 L 06/23/23 17:24 70 97/56 L 06/23/23 17:22 67 90/52 L 98 06/23/23 17:20 60 88/51 L 06/23/23 17:18 57 L 92/50 L 06/23/23 17:17 97 06/23/23 17:17 61 06/23/23 17:17 70 98/53 L 06/23/23 17:12 68 99 06/23/23 17:07 88 85 L 06/23/23 17:05 76 85 L 06/23/23 17:02 74 100 06/23/23 16:57 76 100 06/23/23 16:54 73 124/71 06/23/23 16:52 70 99 06/23/23 13:47 36.8 C 20 06/23/23 13:42 36.8 C 76 20 117/66
--- NOTE | 2023-06-23 23:13 | Delivery Summary ---
Vaginal Delivery Summary Date of Service June 23, 2023 Vaginal Delivery Summary live male SAUL with delayed cord clamping and Apgars 8/9 weight pending. Cord blood obtained followed by spontaneous delivery of intact placenta. No tears. EBL 150 ml. Final sponge and instrument count are correct. Mom and baby stable.
[2023-06-23] MEDS ORDERED: HYDROCORTISONE ACETATE 25 MG SUPP PR PRN (23:16)
[2023-06-23] MEDS ORDERED: bisacodyL 10 MG SUPP PR PRN (23:16)
[2023-06-23] MEDS ORDERED: BENZOCAINE 20% SPRY 85 APPLN/85 GM CAN EXT PRN (23:16)
[2023-06-23] MEDS ORDERED: ACETAMINOPHEN 325 MG TAB PO PRN (23:16)
[2023-06-23] MEDS ORDERED: DIPHTHERIA/TETANUS/PERTUSSIS Vaccine (Tdap, Age 7+yrs) 0.5mL SYR/VL IM ONE (23:16)
[2023-06-24] MEDS: IBUPROFEN 600 MG TAB PO PRN ×2 (05:52→15:24)
[2023-06-24 07:25] LABS: Hematocrit (blood only) 31.5 % (37.0-47.0); Mean Corpuscular Hemoglobin 26.7 pg (25.0-34.0); Mean Corpuscular Hgb Conc 31.7 g/dL (32.0-36.0); Mean Platelet Volume 10.2 fL (9.4-12.4); Platelet Count 154 K/uL (130-400); RDW Coefficient of Variation 17.2 % (11.5-14.5); RDW Standard Deviation 53.1 fL (36.4-46.3); Red Blood Count 3.75 M/uL (4.20-5.40)
[2023-06-24] MEDS: DOCUSATE SODIUM 100 MG CAP PO SCH ×2 (08:55→20:23)
[2023-06-24] MEDS: PRENATAL VITAMIN 1 TAB PO SCH (08:55)
[2023-06-24] MEDS: FERROUS SULFATE 325 MG TAB PO SCH (08:55)
--- NOTE | 2023-06-24 09:29 | Anesthesia Procedure Note ---
Date of Service June 24, 2023 Anesthesia Post Epidural Note Vital Signs Vital Signs: Temp Pulse Resp BP Pulse Ox O2 Del Method 36.8 C 63 16 96/65 L 95 Room Air 06/24/23 07:30 06/24/23 05:45 06/24/23 07:30 06/24/23 07:30 06/24/23 07:30 06/24/23 07:30 Pain Intensity Head: Pain Intensity: 2 Notes Mental Status: alert / awake / arousable Nausea / Vomiting: adequately controlled Pain: adequately controlled Airway Patency, RR, SpO2: stable & adequate BP & HR: stable & adequate Hydration State: stable & adequate Neuraxial Anesthesia: was administered and sensory block is resolving Anesthetic Complications: no major complications apparent Epidural: Removed without complications and With tip intact
--- NOTE | 2023-06-24 10:35 | Obstetrical Progress Note ---
Date of Service June 24, 2023 Subjective Ambulation: ambulating normally Voiding: no voiding problems Passing Gas:: Yes Diet Tolerance:: regular diet Lochia:: Small Feeding Type:: breast feeding Current Pain Level(1-10): 0 doing well Physical Exam Constitutional WD/WN, vitals as above Gastrointestinal (Abdomen) Inspection/Auscultation: abdomen normal to inspection abdomen soft and non-tender. fundus firm below U Musculoskeletal Extremities: extremities normal to inspection Skin no rashes, warm and dry Neurologic patellar DTR's 2+ bilat, sensation intact Psychiatric A+Ox3, euthymic affect Results & Data Vital Signs (Past 12 Hours) Vital Signs Temp Pulse Pulse Resp BP BP Pulse Ox 06/24/23 07:30 36.8 C 16 96/65 L 95 06/24/23 05:45 36.6 C 63 18 100/62 96 06/24/23 01:25 37.0 C 76 18 110/63 97 06/24/23 01:15 37.0 C 18 06/24/23 01:15 110/63 06/24/23 01:00 85 116/63 06/24/23 00:45 36.8 C 18 06/24/23 00:45 60 116/64 06/24/23 00:30 63 114/60 06/24/23 00:15 36.7 C 18 06/24/23 00:15 57 L 112/59 L 06/24/23 00:00 36.7 C 18 06/24/23 00:00 75 113/62 06/23/23 23:46 57 L 113/70 06/23/23 23:45 36.8 C 18 06/23/23 23:30 36.8 C 18 06/23/23 23:30 68 114/67 06/23/23 23:16 82 121/75 06/23/23 23:15 36.8 C 18 06/23/23 23:12 89 106/59 L 06/23/23 23:09 85 86 L 06/23/23 23:08 86 95 06/23/23 23:03 73 100 06/23/23 23:02 109 H 89 L 06/23/23 22:58 116 H 59 L 06/23/23 22:57 78 134/70 06/23/23 22:55 88 85 L 06/23/23 22:53 80 98 06/23/23 22:49 82 84 L 06/23/23 22:48 85 98 06/23/23 22:44 82 84 L 06/23/23 22:43 67 104/63 06/23/23 22:41 77 98 06/23/23 22:36 86 98 06/23/23 22:34 88 82 L O2 Del Method 06/24/23 07:30 Room Air 06/24/23 05:45 Room Air 06/24/23 01:25 Room Air 06/24/23 01:15 06/24/23 01:15 06/24/23 01:00 06/24/23 00:45 06/24/23 00:45 06/24/23 00:30 06/24/23 00:15 06/24/23 00:15 06/24/23 00:00 06/24/23 00:00 06/23/23 23:46 06/23/23 23:45 06/23/23 23:30 06/23/23 23:30 06/23/23 23:16 06/23/23 23:15 06/23/23 23:12 06/23/23 23:09 06/23/23 23:08 06/23/23 23:03 06/23/23 23:02 06/23/23 22:58 06/23/23 22:57 06/23/23 22:55 06/23/23 22:53 06/23/23 22:49 06/23/23 22:48 06/23/23 22:44 06/23/23 22:43 06/23/23 22:41 06/23/23 22:36 06/23/23 22:34 Laboratory Results Laboratory Results - last 72 hr 06/23/23 06/24/23 14:12 07:11 WBC 12.77 H 11.00 H RBC 4.58 3.75 L Hgb 12.2 10.0 L Hct 38.4 31.5 L MCV 83.8 84.0 MCH 26.6 26.7 MCHC 31.8 L 31.7 L RDW Std Deviation 52.5 H 53.1 H RDW Coeff of Omnroe 17.2 H 17.2 H Plt Count 220 154 MPV 10.6 10.2 Blood Type B Positive Antibody Screen NEGATIVE
[2023-06-24] MEDS ORDERED: bisacodyL 5 MG TABEC PO SCH (20:00)
[2023-06-25] MEDS: PRENATAL VITAMIN 1 TAB PO SCH (07:21)
[2023-06-25] MEDS: DOCUSATE SODIUM 100 MG CAP PO SCH (07:21)
[2023-06-25] MEDS: FERROUS SULFATE 325 MG TAB PO SCH (07:21)
[2023-06-25 08:14] LABS: Hematocrit (blood only) 34.7 % (37.0-47.0); Hemoglobin 11.1 g/dl (12.0-16.0)
--- NOTE | 2023-06-25 08:40 | Obstetrical Progress Note ---
Date of Service June 25, 2023 Assessment & Plan Admission and Anticipated Discharge Date Admission Date: June 23, 2023 Subjective Patient is seen and examined. She feels well, no complaints. Ambulating without dizziness Voiding without difficulty Tolerating regular diet with out N&V Bleeding is minimal No fever/ chills/ CP/ SOB/ N&V/ Leg pain Breast feeding without problems Vital Signs Temp Pulse Resp BP Pulse Ox O2 Del Method 06/25/23 08:00 36.6 C 86 16 119/76 97 Room Air 06/25/23 01:00 36.7 C 70 18 112/71 97 Room Air Lab Results 06/23/23 06/24/23 06/25/23 Range/Units 14:12 07:11 07:46 WBC 12.77 H 11.00 H (4.8-10.8) K/ul RBC 4.58 3.75 L (4.20-5.40) M/uL Hgb 12.2 10.0 L 11.1 L (12.0-16.0) g/dl Hct 38.4 31.5 L 34.7 L (37.0-47.0) % MCV 83.8 84.0 (80.0-100.0) fL MCH 26.6 26.7 (25.0-34.0) pg MCHC 31.8 L 31.7 L (32.0-36.0) g/dL RDW Std Deviation 52.5 H 53.1 H (36.4-46.3) fL RDW Coeff of [place] 17.2 H 17.2 H (11.5-14.5) % Plt Count 220 154 (130-400) K/uL MPV 10.6 10.2 (9.4-12.4) fL Blood Type B Positive Antibody Screen NEGATIVE PE: General: Alert, orientedx3, NAD Abd: soft, NT, fundus firm, below Umbilicus Perineum intact, Lochia rubra minimal Ext; NT, no edema AP: 22 yo s/p , ppd# 2 VSS Afebrile doing well h/o depression, offered her psychiatry consult and accepted Continue routine care All questions were answered D/C home after dinner Results & Data Vital Signs (Past 12 Hours) Vital Signs Temp Pulse Resp BP Pulse Ox O2 Del Method 06/25/23 08:00 36.6 C 86 16 119/76 97 Room Air 06/25/23 01:00 36.7 C 70 18 112/71 97 Room Air
== END 2023-06-25 12:00 | disposition home or self-care (01) | DRG 807 ==
LOC: OPB 13:30 → 4S1 13:32 → 4E2 06-24 02:15

== ENCOUNTER 2024-08-01 11:16 | Inpatient (IN) ==
[2024-08-01] MEDS ORDERED: OXYTOCIN 30 UNITS/NSS 30 UNITS/500 ML BAG IV PRN ×2 (11:36→23:46)
[2024-08-01] MEDS ORDERED: LIDOCAINE 1% LOCAL 20 ML VIAL INFIL PRN (11:36)
[2024-08-01 12:39] LABS: Hematocrit (blood only) 34.1 % (37.0-47.0); Hemoglobin 11.2 g/dl (12.0-16.0); Mean Corpuscular Hgb Conc 32.8 g/dL (32.0-36.0); Mean Corpuscular Volume 82.2 fL (80.0-100.0); Mean Platelet Volume 10.8 fL (9.4-12.4); Platelet Count 231 K/uL (130-400); RDW Coefficient of Variation 18.1 % (11.5-14.5); RDW Standard Deviation 54.7 fL (36.4-46.3); Red Blood Count 4.15 M/uL (4.20-5.40); White Blood Count 9.55 K/ul (4.8-10.8)
--- NOTE | 2024-08-01 13:02 | History & Physical Report ---
Date of Service August 01, 2024 Assessment & Plan (1) Post-dates : Plan: Oxytocin planned for induction Admission and Anticipated Discharge Date Admission Date: August 01, 2024 History of Present Illness Chief Complaint: induction of labor Primary Care Provider: [facility] 23 F P1001 at 40.3 weeks admitted for IOL for post dates. GBS is negative. Allergies Allergy/AdvReac Type Severity Reaction Status Date / Time No Known Allergies Allergy Unverified 07/31/24 20:19 Home Medications Medication Instructions Recorded Confirmed Type vits no.124-ferrous fum 1 tab PO DAILY@08 #90 tabs 06/25/23 08/01/24 Rx 27 mg iron-folic acid 800 mcg tablet ( Vitamin) Patient History Medical History Weight loss Adenopathy, cervical Dysphagia Social History Smoking Status: Never smoker Hx Alcohol Use: No Hx Substance Use: No Preferred Language: Irish Communication Ability: Effective Leather Staker Required: No Beliefs That Will Affect Care: None marital status: Single Current Living Situation: Spouse Current Living Situation Comment: Joan Pretty (1 yo son) Other Information That Helps Us Care for You: No Feels Safe at Home: Yes Safety Concerns: Feels Safe At This Time Assistive Devices: None 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 Review of Systems All systems reviewed & are unremarkable except as noted in HPI & below Physical Exam Constitutional: WD/WN, vitals as above Eyes: PERRL, conjunctivae normal, anicteric sclerae Respiratory: normal respiratory effort, lungs clear to auscultation Cardiovascular: Rate/Rhythm: regular rate and regular rhythm Gastrointestinal (Abdomen): Inspection/Auscultation: abdomen normal to inspection Musculoskeletal: Extremities: extremities normal to inspection Skin: no rashes, warm and dry Neurologic: patellar DTR's 2+ bilat, sensation intact Psychiatric: A+Ox3, euthymic affect Genitourinary: no vaginal lesions, no adnexal mass OB Exam Abdomen: + fundal height and + vertex Manual OB Exam: + cervical dilation 3 cm and 4 cm, + cervical effacement 50% and + station -2 OB Exam Monitor Tracing: + external FHT monitor used, + external uterine monitor used, + category I and + normal FHT variability Results & Data Vital Signs (Past 12 Hours) Vital Signs Temp Pulse Resp BP 08/01/24 11:36 36.5 C 20 08/01/24 11:32 89 122/69 Laboratory Results 08/01/24 12:11 WBC 9.55 RBC 4.15 L Hgb 11.2 L Hct 34.1 L MCV 82.2 MCH 27.0 MCHC 32.8 RDW Std Deviation 54.7 H RDW Coeff of [place] 18.1 H Plt Count 231 MPV 10.8 Code Status & VTE Plan VTE Prophylaxis Plan VTE Prophylaxis will be ordered: No Monitoring External Monitor Cat 1 (1) Post-dates Post-term type: 40-42 weeks gestation Qualified Code(s): O48.0 - Post-term
[2024-08-01] MEDS: OXYTOCIN 30 UNITS/NSS 30 UNITS/500 ML BAG IV PRN (13:23)
[2024-08-01] MEDS: SODIUM CHLORIDE 0.9% 1,000 ML IV SCH (13:24)
--- NOTE | 2024-08-01 16:39 | Labor Progress Brief Note ---
Date of Service August 01, 2024 Assessment & Plan Admission and Anticipated Discharge Date Admission Date: August 01, 2024 Physical Exam Genitourinary: Manual OB Exam: + cervical dilation 4 cm and 5 cm, + cervical effacement 60% and + station (I attempted to rupture membranes but not able to at this time) -2 OB Exam Monitor Tracing: + external FHT monitor used, + external uterine monitor used, + category I and + normal FHT variability Results & Data Vital Signs (Past 12 Hours) Vital Signs Temp Pulse Resp BP 08/01/24 16:00 20 08/01/24 16:00 20 08/01/24 15:42 18 08/01/24 15:42 36.5 C 18 08/01/24 15:30 18 08/01/24 15:30 18 08/01/24 15:03 63 08/01/24 15:03 107/66 08/01/24 15:00 20 08/01/24 15:00 20 08/01/24 14:30 18 08/01/24 14:30 18 08/01/24 14:18 75 08/01/24 14:18 118/72 08/01/24 14:00 18 08/01/24 14:00 18 08/01/24 13:30 20 08/01/24 13:30 20 08/01/24 13:25 82 08/01/24 13:25 108/66 08/01/24 12:00 20 08/01/24 12:00 20 08/01/24 11:36 36.5 C 20 08/01/24 11:32 89 122/69
[2024-08-01] MEDS ORDERED: ePHEDrine sulfate 50 MG/ML AMP IV PRN (17:43)
[2024-08-01] MEDS ORDERED: fentANYL 2 MCG/ML BUPIVacaine 0.125%-NSS 100ML BAG EPI PRN (17:43)
[2024-08-01] MEDS ORDERED: diphenhydrAMINE 50 MG/ML VIAL IV PRN (17:43)
[2024-08-01] MEDS ORDERED: NALOXONE HCL 0.4 MG/1 ML VIAL/CARP IV PRN (17:43)
[2024-08-01] MEDS ORDERED: BUPIVACAINE 0.25% PF 30 ML VIAL EPI PRN (17:43)
[2024-08-01] MEDS ORDERED: ROPIVACAINE 0.5% PF 5 MG/ML 20 ML VIAL EPI PRN (17:43)
[2024-08-01] MEDS ORDERED: LIDOCAINE 2% MPF LOCAL 5 ML VIAL EPI PRN (17:43)
[2024-08-01] MEDS ORDERED: SODIUM CHLORIDE 0.9% PF INJ 10 ML VIAL EPI PRN (17:43)
[2024-08-01] MEDS ORDERED: fentaNYL citrate PF 100 MCG/2 ML VIAL EPI PRN (17:43)
[2024-08-01] MEDS ORDERED: NALBUPHINE HCL INJ 10 MG/ML AMP IV PRN (17:43)
[2024-08-01] MEDS ORDERED: NALOXONE HCL 1 MG in SODIUM CHLORIDE 0.9% 1,000 ML IV PRN (17:43)
--- NOTE | 2024-08-01 17:47 | Anesthesiology Consultation ---
Date of Service August 01, 2024 Assessment & Plan (1) Encounter for pre-operative examination: Chart Review Chart Review: Patient NOT seen in Pre Admission Testing and Acceptable Risk for Labor Epidural Consults Requested none History Height/Weight Height: 5 ft 4 in Weight: 98.43 kg Allergies Allergy/AdvReac Type Severity Reaction Status Date / Time No Known Allergies Allergy Unverified 07/31/24 20:19 Medications Home Medications Medication Instructions Recorded Confirmed Last Taken vits no.124-ferrous fum 1 tab PO DAILY@08 #90 tabs 06/25/23 08/01/24 07/31/24 27 mg iron-folic acid 800 mcg tablet ( Vitamin) Active Medications Generic Name Dose Route Start Last Admin Trade Name Freq PRN Reason Stop Dose Admin Sodium Chloride 1,000 mls @ 50 mls/hr 08/01/24 13:00 08/01/24 17:36 Nss IV 08/02/24 12:59 50 mls/hr .Q20H ANNA Infusion Oxytocin 30 units in 500 mls @ 9 mls/hr 08/01/24 13:12 08/01/24 16:30 Pitocin 30 Units/Nss IV 08/03/24 13:11 0.54 units/hr .Q24H PRN 9 mls/hr Labor Induction/Augmentation Titration Protocol 0.54 UNITS/HR Past Medical History Medical History (Updated 08/01/24 @ 17:45 by Dean Smith MD) Encounter for pre-operative examination Weight loss Adenopathy, cervical Dysphagia Exercise / Class Metabolic Activity II 4-5 Yardwork/Stairs/Walk up hill Past Anesthesia History No Hx of Anesthesia Complications and No Family Hx of Anesthesia Complications Social History Smoking Status: Never smoker Hx Alcohol Use: No Hx Substance Use: No substance use type: does not use Physical Exam Vital Signs Last Vital Signs Temp 36.5 C 08/01/24 15:42 Pulse 66 08/01/24 17:42 Resp 20 08/01/24 17:30 BP 121/73 08/01/24 17:18 Pulse Ox 97 08/01/24 17:42 Testing Laboratory Results 08/01/24 12:11 Blood Type B Positive 08/01/24 12:11 Antibody Screen NEGATIVE 08/01/24 12:11
[2024-08-01] MEDS: fentaNYL citrate PF 100 MCG/2 ML VIAL ONE (17:53)
[2024-08-01] MEDS: BUPIVACAINE 0.25% PF 30 ML VIAL ONE (17:53)
[2024-08-01] MEDS: fentANYL 2 MCG/ML BUPIVacaine 0.125%-NSS 100ML BAG ONE (17:54)
[2024-08-01] MEDS: ePHEDrine sulfate 50 MG/ML AMP ONE (18:55)
[2024-08-01] MEDS: LIDOCAINE 2%/EPINEPHRINE 1:200,000 20 ML PF ONE (18:55)
[2024-08-01] MEDS: SODIUM CHLORIDE 0.9% PF INJ 10 ML VIAL ONE (18:55)
[2024-08-01] MEDS: BUPIVACAINE 0.25% PF 30 ML VIAL EPI STA (18:55)
[2024-08-01] MEDS: LIDOCAINE 2%/EPINEPHRINE 1:200,000 20 ML PF EPI STA (18:56)
[2024-08-01] MEDS: fentaNYL citrate PF 100 MCG/2 ML VIAL EPI STA (18:56)
[2024-08-01] MEDS: SODIUM CHLORIDE 0.9% PF INJ 10 ML VIAL EPI STA (18:56)
--- NOTE | 2024-08-01 19:26 | Labor Progress Brief Note ---
Date of Service August 01, 2024 Assessment & Plan Admission and Anticipated Discharge Date Admission Date: August 01, 2024 Physical Exam Genitourinary: Manual OB Exam: + cervical dilation 6 cm, + cervical effacement 80%, + station -1 and + amniotic fluid (AROM with Amni-hook clear fluid) clear OB Exam Monitor Tracing: + external FHT monitor used, + external uterine monitor used, + category I and + normal FHT variability Results & Data Vital Signs (Past 12 Hours) Vital Signs Temp Pulse Resp BP Pulse Ox O2 Del Method 08/01/24 19:21 87 L 08/01/24 19:21 73 08/01/24 19:20 96 08/01/24 19:20 76 08/01/24 19:19 66 08/01/24 19:19 105/62 08/01/24 19:15 94 08/01/24 19:15 69 08/01/24 19:10 94 08/01/24 19:10 73 08/01/24 19:06 36.5 C 18 08/01/24 19:06 Room Air 08/01/24 19:05 96 08/01/24 19:05 65 08/01/24 19:00 20 08/01/24 19:00 20 08/01/24 19:00 93 08/01/24 19:00 66 08/01/24 19:00 112/60 08/01/24 18:56 68 08/01/24 18:56 107/58 L 08/01/24 18:55 96 08/01/24 18:55 67 08/01/24 18:52 78 08/01/24 18:52 107/62 08/01/24 18:50 95 08/01/24 18:50 60 08/01/24 18:47 66 08/01/24 18:47 108/59 L 08/01/24 18:45 95 08/01/24 18:45 62 08/01/24 18:42 67 08/01/24 18:42 94/55 L 08/01/24 18:40 94 08/01/24 18:40 73 08/01/24 18:37 71 08/01/24 18:37 100/58 L 08/01/24 18:35 92 08/01/24 18:35 62 08/01/24 18:30 20 08/01/24 18:30 20 08/01/24 18:30 96 08/01/24 18:30 67 08/01/24 18:30 108/56 L 08/01/24 18:28 63 08/01/24 18:28 102/56 L 08/01/24 18:27 61 08/01/24 18:27 109/54 L 08/01/24 18:25 96 08/01/24 18:25 59 L 08/01/24 18:25 62 08/01/24 18:25 95/52 L 08/01/24 18:20 96 08/01/24 18:20 77 08/01/24 18:20 90 08/01/24 18:20 113/71 08/01/24 18:17 93 08/01/24 18:17 74 08/01/24 18:15 95 08/01/24 18:15 82 08/01/24 18:13 71 08/01/24 18:13 111/65 08/01/24 18:11 93 08/01/24 18:11 70 08/01/24 18:11 115/71 08/01/24 18:10 96 08/01/24 18:10 88 08/01/24 18:09 78 08/01/24 18:09 109/67 08/01/24 18:07 85 08/01/24 18:07 127/65 08/01/24 18:05 97 08/01/24 18:05 77 08/01/24 18:05 124/66 08/01/24 18:03 79 08/01/24 18:03 126/70 08/01/24 18:01 66 08/01/24 18:01 127/73 08/01/24 18:00 95 08/01/24 18:00 72 08/01/24 17:59 74 08/01/24 17:59 119/71 08/01/24 17:55 86 L 08/01/24 17:55 81 08/01/24 17:50 97 08/01/24 17:50 78 08/01/24 17:43 20 08/01/24 17:43 20 08/01/24 17:42 97 08/01/24 17:42 66 08/01/24 17:37 96 08/01/24 17:37 72 08/01/24 17:32 96 08/01/24 17:32 68 08/01/24 17:30 20 08/01/24 17:30 20 08/01/24 17:27 95 08/01/24 17:27 65 08/01/24 17:22 97 08/01/24 17:22 71 08/01/24 17:18 71 08/01/24 17:18 121/73 08/01/24 17:17 99 08/01/24 17:17 72 08/01/24 17:00 18 08/01/24 17:00 18 08/01/24 16:50 67 08/01/24 16:50 117/68 08/01/24 16:30 20 08/01/24 16:30 20 08/01/24 16:00 20 08/01/24 16:00 20 08/01/24 15:42 18 08/01/24 15:42 36.5 C 18 08/01/24 15:30 18 08/01/24 15:30 18 08/01/24 15:03 63 08/01/24 15:03 107/66 08/01/24 15:00 20 08/01/24 15:00 20 08/01/24 14:30 18 08/01/24 14:30 18 08/01/24 14:18 75 08/01/24 14:18 118/72 08/01/24 14:00 18 08/01/24 14:00 18 08/01/24 13:30 20 08/01/24 13:30 20 08/01/24 13:25 82 08/01/24 13:25 108/66 08/01/24 12:00 20 08/01/24 12:00 20 08/01/24 11:36 36.5 C 20 08/01/24 11:32 89 122/69
[2024-08-01] MEDS: ONDANSETRON INJ 2 MG/ML 2 ML VIAL IV PRN (20:39)
[2024-08-01] MEDS ORDERED: HYDROCORTISONE ACETATE 25 MG SUPP PR PRN (23:46)
[2024-08-01] MEDS ORDERED: BENZOCAINE 20% SPRY 85 APPLN/85 GM CAN EXT PRN (23:46)
--- NOTE | 2024-08-01 23:49 | Delivery Summary ---
Vaginal Delivery Summary Date of Service August 01, 2024 Vaginal Delivery Summary live male LAURI over intact perineum with delayed cord clamping. Apgars 9/9 weight pending. Cord blood obtained followed by spontaneous delivery of intact placenta. No tears. Bladder drained with red rubber cath. of 50 ml. urine. QBL 50 ml. Final sponge and instrument count are correct. Mom and baby stable.
[2024-08-02] MEDS: ACETAMINOPHEN 325 MG TAB PO PRN (00:48)
[2024-08-02] MEDS: DIPHTHER/TETAN/PERTUS Vaccine (Tdap, Adol/Adult) 0.5mL IM ONE (00:54)
[2024-08-02 06:43] LABS: Hematocrit (blood only) 31.6 % (37.0-47.0); Hemoglobin 10.1 g/dl (12.0-16.0); Mean Corpuscular Hemoglobin 26.4 pg (25.0-34.0); Mean Corpuscular Volume 82.7 fL (80.0-100.0); Mean Platelet Volume 10.8 fL (9.4-12.4); Platelet Count 179 K/uL (130-400); RDW Coefficient of Variation 18.4 % (11.5-14.5); RDW Standard Deviation 55.4 fL (36.4-46.3); Red Blood Count 3.82 M/uL (4.20-5.40); White Blood Count 12.11 K/ul (4.8-10.8)
--- NOTE | 2024-08-02 07:49 | Anesthesia Procedure Note ---
Date of Service August 02, 2024 Anesthesia Post Epidural Note Vital Signs Vital Signs: Temp Pulse Resp BP Pulse Ox O2 Del Method 36.9 C 72 16 111/68 96 Room Air 08/02/24 07:28 08/02/24 07:28 08/02/24 07:28 08/02/24 07:28 08/02/24 07:28 08/02/24 07:28 Notes Mental Status: alert / awake / arousable and participated in evaluation Nausea / Vomiting: adequately controlled Pain: adequately controlled Airway Patency, RR, SpO2: stable & adequate BP & HR: stable & adequate Hydration State: stable & adequate Neuraxial Anesthesia: was administered and sensory block resolved Anesthetic Complications: no major complications apparent and Pt Satisfied with anesthetic care Epidural: Removed without complications and With tip intact
[2024-08-02] MEDS ORDERED: PRENATAL VITAMIN 1 TAB PO SCH (08:00)
--- NOTE | 2024-08-02 08:10 | Obstetrical Progress Note ---
Date of Service August 02, 2024 Subjective Ambulation: ambulating normally Voiding: no voiding problems Passing Gas:: Yes Diet Tolerance:: regular diet Lochia:: Small Feeding Type:: breast feeding Current Pain Level(1-10): 0 Physical Exam Constitutional WD/WN, vitals as above Gastrointestinal (Abdomen) Inspection/Auscultation: abdomen normal to inspection Musculoskeletal Extremities: extremities normal to inspection Skin no rashes, warm and dry Neurologic patellar DTR's 2+ bilat, sensation intact Psychiatric A+Ox3, euthymic affect Results & Data Vital Signs (Past 12 Hours) Vital Signs Temp Pulse Pulse Pulse Resp BP BP 08/02/24 07:28 36.9 C 72 16 111/68 08/02/24 03:40 36.9 C 75 18 116/66 08/02/24 02:23 37.1 C 88 16 116/70 08/02/24 01:41 113 H 111/64 08/02/24 01:40 18 08/02/24 01:26 80 110/58 L 08/02/24 01:11 65 115/66 08/02/24 01:10 18 08/02/24 00:56 73 117/68 08/02/24 00:41 74 106/59 L 08/02/24 00:40 18 08/02/24 00:27 64 101/55 L 08/02/24 00:25 18 08/02/24 00:11 85 111/61 08/02/24 00:10 18 08/02/24 00:01 71 103/56 L 08/01/24 23:55 18 08/01/24 23:42 73 08/01/24 23:42 110/64 08/01/24 23:40 18 08/01/24 23:35 08/01/24 23:35 80 08/01/24 23:34 82 08/01/24 23:34 117/77 08/01/24 23:30 08/01/24 23:30 93 H 08/01/24 23:25 08/01/24 23:25 113 H 08/01/24 23:20 18 08/01/24 23:20 37.2 C 18 08/01/24 23:20 08/01/24 23:20 106 H 08/01/24 23:19 08/01/24 23:19 86 08/01/24 23:19 108/67 08/01/24 23:15 08/01/24 23:15 94 H 08/01/24 23:10 08/01/24 23:10 77 08/01/24 23:05 08/01/24 23:05 76 08/01/24 23:04 75 08/01/24 23:04 116/71 08/01/24 23:03 08/01/24 23:03 83 08/01/24 23:00 18 08/01/24 23:00 18 08/01/24 23:00 08/01/24 23:00 78 08/01/24 22:55 08/01/24 22:55 94 H 08/01/24 22:50 08/01/24 22:50 92 H 08/01/24 22:48 74 08/01/24 22:48 104/58 L 08/01/24 22:45 08/01/24 22:45 74 08/01/24 22:43 08/01/24 22:43 86 08/01/24 22:40 08/01/24 22:40 74 08/01/24 22:38 08/01/24 22:38 71 08/01/24 22:35 08/01/24 22:35 72 08/01/24 22:34 83 08/01/24 22:34 105/56 L 08/01/24 22:30 18 08/01/24 22:30 18 08/01/24 22:30 08/01/24 22:30 74 08/01/24 22:25 08/01/24 22:25 71 08/01/24 22:20 08/01/24 22:20 60 08/01/24 22:19 71 08/01/24 22:19 110/54 L 08/01/24 22:17 08/01/24 22:17 60 08/01/24 22:15 08/01/24 22:15 67 08/01/24 22:13 91 H 08/01/24 22:13 115/53 L 08/01/24 22:10 08/01/24 22:10 87 08/01/24 22:05 08/01/24 22:05 82 08/01/24 22:04 77 08/01/24 22:04 117/59 L 08/01/24 22:00 08/01/24 22:00 81 08/01/24 21:55 08/01/24 21:55 77 08/01/24 21:50 08/01/24 21:50 72 08/01/24 21:49 66 08/01/24 21:49 105/57 L 08/01/24 21:45 08/01/24 21:45 69 08/01/24 21:40 08/01/24 21:40 72 08/01/24 21:35 08/01/24 21:35 70 08/01/24 21:34 76 08/01/24 21:34 111/61 08/01/24 21:30 18 08/01/24 21:30 18 08/01/24 21:30 08/01/24 21:30 72 08/01/24 21:25 08/01/24 21:25 76 08/01/24 21:20 08/01/24 21:20 70 08/01/24 21:19 79 08/01/24 21:19 105/57 L 08/01/24 21:15 08/01/24 21:15 71 08/01/24 21:10 08/01/24 21:10 69 08/01/24 21:05 37.0 C 08/01/24 21:05 08/01/24 21:05 76 08/01/24 21:04 85 08/01/24 21:04 124/73 08/01/24 21:00 18 08/01/24 21:00 18 08/01/24 21:00 08/01/24 21:00 79 08/01/24 20:55 08/01/24 20:55 78 08/01/24 20:50 08/01/24 20:50 80 08/01/24 20:49 83 08/01/24 20:49 128/69 08/01/24 20:45 08/01/24 20:45 76 08/01/24 20:40 08/01/24 20:40 83 08/01/24 20:35 08/01/24 20:35 106 H 08/01/24 20:34 133 H 08/01/24 20:34 142/78 H 08/01/24 20:30 18 08/01/24 20:30 18 08/01/24 20:30 08/01/24 20:30 72 08/01/24 20:25 08/01/24 20:25 66 08/01/24 20:20 08/01/24 20:20 66 08/01/24 20:19 67 08/01/24 20:19 104/59 L 08/01/24 20:15 08/01/24 20:15 62 08/01/24 20:10 08/01/24 20:10 60 Pulse Ox O2 Del Method 08/02/24 07:28 96 Room Air 08/02/24 03:40 98 Room Air 08/02/24 02:23 96 Room Air 08/02/24 01:41 08/02/24 01:40 08/02/24 01:26 08/02/24 01:11 08/02/24 01:10 08/02/24 00:56 08/02/24 00:41 08/02/24 00:40 08/02/24 00:27 08/02/24 00:25 08/02/24 00:11 08/02/24 00:10 08/02/24 00:01 08/01/24 23:55 08/01/24 23:42 08/01/24 23:42 08/01/24 23:40 08/01/24 23:35 95 08/01/24 23:35 08/01/24 23:34 08/01/24 23:34 08/01/24 23:30 91 08/01/24 23:30 08/01/24 23:25 96 08/01/24 23:25 08/01/24 23:20 08/01/24 23:20 08/01/24 23:20 93 08/01/24 23:20 08/01/24 23:19 88 L 08/01/24 23:19 08/01/24 23:19 08/01/24 23:15 94 08/01/24 23:15 08/01/24 23:10 93 08/01/24 23:10 08/01/24 23:05 94 08/01/24 23:05 08/01/24 23:04 08/01/24 23:04 08/01/24 23:03 86 L 08/01/24 23:03 08/01/24 23:00 08/01/24 23:00 08/01/24 23:00 92 08/01/24 23:00 08/01/24 22:55 92 08/01/24 22:55 08/01/24 22:50 91 08/01/24 22:50 08/01/24 22:48 08/01/24 22:48 08/01/24 22:45 91 08/01/24 22:45 08/01/24 22:43 89 L 08/01/24 22:43 08/01/24 22:40 91 08/01/24 22:40 08/01/24 22:38 89 L 08/01/24 22:38 08/01/24 22:35 92 08/01/24 22:35 08/01/24 22:34 08/01/24 22:34 08/01/24 22:30 08/01/24 22:30 08/01/24 22:30 92 08/01/24 22:30 08/01/24 22:25 91 08/01/24 22:25 08/01/24 22:20 91 08/01/24 22:20 08/01/24 22:19 08/01/24 22:19 08/01/24 22:17 88 L 08/01/24 22:17 08/01/24 22:15 95 08/01/24 22:15 08/01/24 22:13 08/01/24 22:13 08/01/24 22:10 93 08/01/24 22:10 08/01/24 22:05 93 08/01/24 22:05 08/01/24 22:04 08/01/24 22:04 08/01/24 22:00 95 08/01/24 22:00 08/01/24 21:55 93 08/01/24 21:55 08/01/24 21:50 95 08/01/24 21:50 08/01/24 21:49 08/01/24 21:49 08/01/24 21:45 95 08/01/24 21:45 08/01/24 21:40 93 08/01/24 21:40 08/01/24 21:35 94 08/01/24 21:35 08/01/24 21:34 08/01/24 21:34 08/01/24 21:30 08/01/24 21:30 08/01/24 21:30 94 08/01/24 21:30 08/01/24 21:25 94 08/01/24 21:25 08/01/24 21:20 95 08/01/24 21:20 08/01/24 21:19 08/01/24 21:19 08/01/24 21:15 94 08/01/24 21:15 08/01/24 21:10 93 08/01/24 21:10 08/01/24 21:05 08/01/24 21:05 94 08/01/24 21:05 08/01/24 21:04 08/01/24 21:04 08/01/24 21:00 08/01/24 21:00 08/01/24 21:00 94 08/01/24 21:00 08/01/24 20:55 96 08/01/24 20:55 08/01/24 20:50 95 08/01/24 20:50 08/01/24 20:49 08/01/24 20:49 08/01/24 20:45 94 08/01/24 20:45 08/01/24 20:40 95 08/01/24 20:40 08/01/24 20:35 94 08/01/24 20:35 08/01/24 20:34 08/01/24 20:34 08/01/24 20:30 08/01/24 20:30 08/01/24 20:30 95 08/01/24 20:30 08/01/24 20:25 96 08/01/24 20:25 08/01/24 20:20 96 08/01/24 20:20 08/01/24 20:19 08/01/24 20:19 08/01/24 20:15 95 08/01/24 20:15 08/01/24 20:10 94 08/01/24 20:10 Laboratory Results Laboratory Results - last 72 hr 08/01/24 08/02/24 12:11 06:19 WBC 9.55 12.11 H RBC 4.15 L 3.82 L Hgb 11.2 L 10.1 L Hct 34.1 L 31.6 L MCV 82.2 82.7 MCH 27.0 26.4 MCHC 32.8 32.0 RDW Std Deviation 54.7 H 55.4 H RDW Coeff of [place] 18.1 H 18.4 H Plt Count 231 179 MPV 10.8 10.8 Treponema pallidum Ab Negative Blood Type B Positive Antibody Screen NEGATIVE
[2024-08-02] MEDS: IBUPROFEN 600 MG TAB PO PRN (08:14)
[2024-08-02] MEDS: DOCUSATE SODIUM 100 MG CAP PO SCH (08:15)
[2024-08-02] MEDS: PRENATAL VITAMIN 1 TAB PO SCH (08:15)
[2024-08-02] MEDS: FERROUS SULFATE 325 MG TAB PO SCH (08:15)
[2024-08-02] MEDS: bisacodyL 5 MG TABEC PO SCH (21:13)
[2024-08-02 22:48] VITALS: O2SAT 99
[2024-08-03] MEDS: CALCIUM CARBONATE 500 MG CHEWABLE TAB PO PRN (01:27)
[2024-08-03 02:11] VITALS: PULSE 67; RESP 16
[2024-08-03 07:55] LABS: Hemoglobin 11.1 g/dl (12.0-16.0)
[2024-08-03 08:20] VITALS: BP 119/80; TEMP 97.9
--- NOTE | 2024-08-03 11:16 | Obstetrical Progress Note ---
Date of Service August 03, 2024 Assessment & Plan (1) Post-dates : Pt doing well No complaints disch home with instructions Post-term type: 40-42 weeks gestation Qualified Code(s): O48.0 - Post-term Results & Data Vital Signs (Past 12 Hours) Vital Signs Temp Pulse Resp BP Pulse Ox O2 Del Method 08/03/24 08:10 36.6 C 67 16 119/80 99 Room Air 08/03/24 01:25 67 16 114/74 99 Room Air
[2024-08-03] MEDS ORDERED: bisacodyL 10 MG SUPP PR PRN (23:46)
== END 2024-08-03 14:00 | disposition home health service (06) | DRG 807 ==
LOC: 4S1 11:16 → 4E2 08-02 01:50